=== PATIENT | male | born 1935 | race Caucasian/White ===

== ENCOUNTER 2018-07-05 08:26 | Observation (INO) ==
[2018-07-05] MEDS ORDERED: IPRATROPIUM/ALBUTEROL 3 ML AMPUL.NEB NEB ONE ×2 (08:33→10:17)
--- NOTE | 2018-07-05 08:59 | XRay Report ---
CLINICAL INFORMATION: Chest pain. Known COPD COMPARISON: 05/10/2018 and 04/09/2010 FINDINGS: Implantable cardioverter defibrillator remains in stable, satisfactory position without evidence of wire breakage or other complication. The heart has increased in size and is now moderately enlarged. Mediastinum is normal. Pulmonary vessels are moderately distended and there is moderate interstitial edema with atypical distribution in the mid and lower lungs. Moderate underlying COPD with right basilar scarring seen - as before. Small right pleural effusion noted IMPRESSION: 1. Moderate CHF. Atypical edema distribution to the viable mid and lower lung baltazar due to known upper lobe bullous disease (seen on chest CT 10/14/2017) 2. Moderate underlying COPD - stable Interpreted and Authenticated by: Shoaib Hobson 07/05/18
[2018-07-05 09:19] LABS: Basophils # (Auto) 0 K/mcL (0.0-0.3); Basophils % (Auto) 0.2 % (0.0-2.0); Eosinophils # (Auto) 0.1 K/mcL (0.0-0.7); Eosinophils % (Auto) 0.7 % (0.0-7.0); Granulocytes % (Auto) 80.8 % (38.0-78.0); Lymphocytes # (Auto) 1.3 K/mcL (1.5-4.8); Lymphocytes % (Auto) 10.5 % (15.5-49.0); Mean Cell Volume 84.5 fL (80.0-100.0); Mean Corpuscular HGB Conc 32.7 g/dL (31.0-36.0); Mean Corpuscular Hemoglobin 27.6 pg (26.0-34.0); Monocytes # (Auto) 0.9 K/mcL (0.1-0.9); Monocytes % (Auto) 7.8 % (1.0-12.0); Platelet Count 200 K/mcL (140-440); RBC 4.91 M/mcL (4.50-5.90); Red Cell Distribution Width 16.1 % (11.5-14.5)
[2018-07-05] MEDS ORDERED: FUROSEMIDE 20 MG/2 ML VIAL IV ONE ×2 (09:37→13:18)
--- NOTE | 2018-07-05 09:41 | Emergency Department Note ---
SOB HPI - General Chief Complaint: Shortness of Breath/Dyspnea Stated Complaint: shortness of breath Time Seen by Provider: 07/05/18 09:32 Source: patient Mode of arrival: ambulatory Limitations: no limitations - History of Present Illness This patient has felt short of breath for the last 3 days and has developed some leg edema which is new for him. He says he has taken a water pill in the past but not currently. He does have COPD. Chest x-ray shows moderate heart failure and he did feel little better after a DuoNeb treatment but we will go ahead and start some Lasix. He has had no chest pain. No significant cough. - Related Data Home Medications Medication Instructions Recorded Confirmed atorvastatin 10 mg tablet 10 mg PO QDAY 05/10/18 05/10/18 budesonide 0.5 mg/2 mL suspension 0.5 mg INHALATION QDAY 05/10/18 05/10/18 for nebulization digoxin 125 mcg tablet 125 mcg PO QDAY 05/10/18 05/10/18 formoterol fumarate 20 mcg/2 mL 20 mcg INHALATION Q12H 05/10/18 05/10/18 solution for nebulization furosemide 20 mg tablet 20 mg PO QDAY 05/10/18 05/10/18 hydrocodone 10 mg-acetaminophen 1 tab PO Q6H 05/10/18 05/10/18 325 mg tablet ipratropium-albuterol 0.5 mg-3 3 ml INHALATION Q8H 05/10/18 05/10/18 mg(2.5 mg base)/3 mL nebulization soln metformin 500 mg tablet 500 mg PO BID 05/10/18 05/10/18 metoprolol succinate ER 50 mg 50 mg PO QDAY 05/10/18 05/10/18 tablet,extended release 24 hr verapamil ER 180 mg 24 hr 180 mg PO QDAY 05/10/18 05/10/18 capsule,extended release warfarin 5 mg tablet See Label Instructions PO .COMPLEX 05/10/18 05/10/18 Allergies Allergy/AdvReac Type Severity Reaction Status Date / Time morphine Allergy Intermediate Other Verified 07/05/18 08:33 Review of Systems All systems ED: reviewed and negative except as stated. Past Medical History - Past Medical History Medical history: Reports: atrial fibrillation, CHF, COPD - Social History smoking status: Former smoker Physical Exam Limitations: no limitations General appearance: alert Head: atraumatic Eye: Present: normal appearance ENT: normal exam Neck: Present: normal inspection Chest: Present: normal inspection Respiratory: Present: other (Decreased breath sounds in general but no obvious rales rhonchi or wheezing after a DuoNeb treatment) Cardiovascular: Present: irregular rhythm Abdominal: Present: soft. Absent: distention, tenderness Neurological: Present: alert Psychiatric: Present: normal affect, normal mood Skin: Present: warm, dry, intact Course Vital Signs Temperature 98.4 F 07/05/18 08:27 Pulse Rate 88 07/05/18 08:27 Respiratory Rate 26 H 07/05/18 08:27 Blood Pressure 149/96 07/05/18 08:27 Pulse Oximetry (%) 91 07/05/18 08:27 Temperature 98.4 F 07/05/18 08:27 Pulse Rate 87 07/05/18 10:31 Respiratory Rate 22 07/05/18 10:31 Blood Pressure 174/143 07/05/18 10:31 Pulse Oximetry (%) 90 07/05/18 10:31 Shortness of Breath/Dyspnea - [facility] Narrative Medical decision making narrative: Chest x-ray is read as showing moderate heart failure his BNP was 2300. We gave the patient 20 of Lasix IV and he will be admitted hospital by Dr. Ramos. - Lab Data Lab results reviewed: Yes I reviewed the patient's lab results. Result diagrams: 07/05/18 08:45 07/05/18 08:45 Lab Results 07/05/18 07/05/18 07/05/18 Range/Units 08:45 08:45 08:45 WBC 12.1 H (4.5-11.0) K/mcL RBC 4.91 (4.50-5.90) M/mcL Hgb 13.5 (13.5-16.5) g/dL Hct 41.5 (41.0-55.0) % MCV 84.5 (80.0-100.0) fL MCH 27.6 (26.0-34.0) pg MCHC 32.7 (31.0-36.0) g/dL RDW 16.1 H (11.5-14.5) % Plt Count 200 (140-440) K/mcL MPV 9.7 (7.4-10.4) fL Gran % 80.8 H (38.0-78.0) % Lymph % (Auto) 10.5 L (15.5-49.0) % [place] % (Auto) 7.8 (1.0-12.0) % Eos % (Auto) 0.7 (0.0-7.0) % Baso % (Auto) 0.2 (0.0-2.0) % Gran # 9.7 H (1.8-8.0) K/mcL Lymph # (Auto) 1.3 L (1.5-4.8) K/mcL [place] # (Auto) 0.9 (0.1-0.9) K/mcL Eos # (Auto) 0.1 (0.0-0.7) K/mcL Baso # (Auto) 0 (0.0-0.3) K/mcL PT (11.9-14.5) sec INR (0.9-1.1) D-Dimer (0.00-0.40) ug/ml Sodium 141 (133-145) mmol/L Potassium 4.9 (3.3-5.1) mmol/L Chloride 105 (96-108) mmol/L Carbon Dioxide 28 (22-30) mmol/L Anion Gap 8.0 (8-16) BUN 11 (8-23) mg/dl Creatinine 1.0 (0.7-1.2) mg/dl GFR Calculation 71 Glucose 108 H (70-105) mg/dL Calcium 9.2 (8.6-10.4) mg/dl Total Bilirubin 2.1 H (0.0-1.0) mg/dL AST 14 (0-37) U/l ALT 9 (0-40) U/l Alkaline Phosphatase 67 (39-117) U/L Total Creatine Kinase 36 (24-195) IU/L CK-MB (CK-2) 1.6 (0-4.9) ng/ml Myoglobin 34 (28-72) ng/ml Troponin T < 0.01 (0-0.03) ng/ml NT-Pro-B Natriuret Pep 2339.0 H (0-450) pg/ml Total Protein 6.6 (5.9-8.4) gm/dL Albumin 4.1 (3.2-5.2) gm/dL Globulin 2.5 (2.2-3.7) gm/dL Albumin/Globulin Ratio 1.6 (1.0-2.3) Digoxin ng/mL Digoxin Dose Digox Last Dose Time 07/05/18 07/05/18 07/05/18 Range/Units 08:45 08:45 08:45 WBC (4.5-11.0) K/mcL RBC (4.50-5.90) M/mcL Hgb (13.5-16.5) g/dL Hct (41.0-55.0) % MCV (80.0-100.0) fL MCH (26.0-34.0) pg MCHC (31.0-36.0) g/dL RDW (11.5-14.5) % Plt Count (140-440) K/mcL MPV (7.4-10.4) fL Gran % (38.0-78.0) % Lymph % (Auto) (15.5-49.0) % [place] % (Auto) (1.0-12.0) % Eos % (Auto) (0.0-7.0) % Baso % (Auto) (0.0-2.0) % Gran # (1.8-8.0) K/mcL Lymph # (Auto) (1.5-4.8) K/mcL [place] # (Auto) (0.1-0.9) K/mcL Eos # (Auto) (0.0-0.7) K/mcL Baso # (Auto) (0.0-0.3) K/mcL PT 37.3 H (11.9-14.5) sec INR 3.7 H (0.9-1.1) D-Dimer 0.98 H (0.00-0.40) ug/ml Sodium (133-145) mmol/L Potassium (3.3-5.1) mmol/L Chloride (96-108) mmol/L Carbon Dioxide (22-30) mmol/L Anion Gap (8-16) BUN (8-23) mg/dl Creatinine (0.7-1.2) mg/dl GFR Calculation Glucose (70-105) mg/dL Calcium (8.6-10.4) mg/dl Total Bilirubin (0.0-1.0) mg/dL AST (0-37) U/l ALT (0-40) U/l Alkaline Phosphatase (39-117) U/L Total Creatine Kinase (24-195) IU/L CK-MB (CK-2) (0-4.9) ng/ml Myoglobin (28-72) ng/ml Troponin T (0-0.03) ng/ml NT-Pro-B Natriuret Pep (0-450) pg/ml Total Protein (5.9-8.4) gm/dL Albumin (3.2-5.2) gm/dL Globulin (2.2-3.7) gm/dL Albumin/Globulin Ratio (1.0-2.3) Digoxin < 0.3 ng/mL Digoxin Dose Not Reportable Digox Last Dose Time Not Reportable - Radiology Data Radiology results reviewed: Yes I reviewed the patient's radiology results. Disposition Pt seen by [employer] only: No Clinical Impression: Congestive heart failure Disposition: Xfer As Inpt ([facility]) Condition: Good Referrals: Shey Abebe ARNP [Primary Care Provider] - Time of Disposition: 10:44
[2018-07-05 09:46] LABS: ALT/SGPT 9 U/l (0-40); Albumin 4.1 gm/dL (3.2-5.2); Albumin/Globulin Ratio 1.6 (1.0-2.3); Alkaline Phosphatase 67 U/L (39-117); Blood Urea Nitrogen 11 mg/dl (8-23); Creatine Kinase 36 IU/L (24-195); Creatine Kinase MB 1.6 ng/ml (0-4.9); Myoglobin 34 ng/ml (28-72)
[2018-07-05] MEDS ORDERED: NALOXONE HCL 0.4 MG/ML VIAL IV PRN (12:49)
--- NOTE | 2018-07-05 13:07 | Internal Med History&Physical ---
Medical - H&P: HPI Patient information: Note initiated : 07/05/18 at 1:04 pm Service Date, if different from initiated Date: [] Patient: Zachery Ordoñez a 82 y/o M admitted on 07/05/18 for shortness of breath. Chief Complaint: [] History of present illness: Mr. Ordoñez is a 82 year old Male with h/o chf, afib, copd on 2 L oxygen presents to the ER today with complaints of shortness of breath x 3 days, the patient notes that 3 days ago he noticed that his lower extremities started to swell up, right > left, which is a chr issue for him, the patient has had incrased fatigue and increased shortness of breath since then. SOB is worse with exertion, worse with lying flat, better with rest and sleeping upright, The patient had no chest pain, no dizziness, has chr cough, but no change in sputum production. He notes that he has been eating a lot of cucumbers, with salt. The pt was admitted at [facility] in march this year for copd, pna, echo done at that time showed normal lvef He has h/o afib, s/o AICD and pace maker, on chr anticoagulation In the ER the patient had a temp of 98.4, heart rate 84, blood pressure 149/96, breathing 24-30, saturating 94% on 2 L of oxygen. The patient has elevated white blood cell count at 12.1, hemoglobin 13.5, platelet 200. INR is 3.7. Electrolytes show sodium of 141, potassium 4.9 bicarbonate 28 creatinine 1 glucose 108, digoxin level is 0.3, total bilirubin elevated 2.1 however AST ALT and alkaline phosphatase is normal, troponin is negative, BNP elevated at 2339. EKG shows atrial fibrillation with voltage in the limb leads, right bundle branch block, T-wave inversions in the anterior leads and lead I and aVL, Chest x-ray shows moderate CHF Patient is being admitted as observation to telemetry status. All systems: reviewed and no additional remarkable complaints except as stated ( as per HPI rest negative.) Medical - H&P: PMH Medical history: DM HTN HLD COPD on 2 L oxygen GERD AFib Obesity s/p aicd/ pacemaker Surgical history: shoulder sx rajesh carotid enarterectomy back surgery cholecystectomy Family history: reviewed and not pertinent Social history: former smoker denies etoh or recreational drug use. Medical - H&P: Meds Home Medications Medication Instructions Recorded Confirmed Type atorvastatin 10 mg tablet 10 mg PO HS 05/10/18 07/05/18 History budesonide 0.5 mg/2 mL suspension 0.5 mg INHALATION BID 05/10/18 07/05/18 History for nebulization digoxin 125 mcg tablet 62.5 mcg PO QDAY 05/10/18 07/05/18 History formoterol fumarate 20 mcg/2 mL 20 mcg INHALATION Q12H 05/10/18 07/05/18 History solution for nebulization furosemide 20 mg tablet 20 mg PO QDAY 05/10/18 07/05/18 History hydrocodone 10 mg-acetaminophen 1 tab PO BIDP PRN 05/10/18 07/05/18 History 325 mg tablet ipratropium-albuterol 0.5 mg-3 3 ml INHALATION QIDP PRN 05/10/18 07/05/18 History mg(2.5 mg base)/3 mL nebulization soln metformin 500 mg tablet 500 mg PO BID 05/10/18 07/05/18 History metoprolol succinate ER 50 mg 50 mg PO BID 05/10/18 07/05/18 History tablet,extended release 24 hr verapamil ER 180 mg 24 hr 240 mg PO QDAY 05/10/18 07/05/18 History capsule,extended release warfarin 5 mg tablet See Label Instructions PO .COMPLEX 05/10/18 07/05/18 History Aspirin [Adult Low Dose Aspirin EC] 81 mg PO DAILY 07/05/18 07/05/18 History Ferrous Sulfate [Iron] 325 mg PO DAILY 07/05/18 07/05/18 History Fluticasone Hfa 220Mcg [Flovent 1 puff INH BID 07/05/18 07/05/18 History Hfa 220Mcg] Vardenafil HCl [Levitra] 10 mg PO PRN PRN 07/05/18 07/05/18 History Allergies Allergy/AdvReac Type Severity Reaction Status Date / Time morphine Allergy Intermediate Other Verified 07/05/18 08:33 Medical - H&P: Exam - Constitutional Vitals: Temp Pulse Resp BP Pulse Ox 99 F 81 22 135/91 94 07/05/18 12:50 07/05/18 12:27 07/05/18 12:50 07/05/18 12:50 07/05/18 12:50 Exam: GENERAL: The patient is a well-developed, well-nourished in no apparent distress. Is alert and oriented x3. VITAL SIGNS: Reviewed and as noted elsewhere. HEENT: Head is normocephalic and atraumatic. Extraocular muscles are intact. Pupils are equal, round, and reactive to light. Nares appeared normal. Mouth appears any without lesions. Mucous membranes are moist. NECK: Normal to inspection, Supple, No lymphadenopathy or thyromegaly. LUNGS: Air entry equal on both sides, basilcar inspiratory crackles, no wheezing , or rhonchi noted. No accessory muscles of respiration, pt able to speak full sentences HEART: Regular rate and rhythm normal, S1 and S2 heard, no Gallop, S3 or Rub Noted, No Gross murmur heard. ABDOMEN: Soft, nontender, and nondistended. Positive bowel sounds. No hepatosplenomegaly was noted. EXTREMITIES: No cyanosis, clubbing, rash, lesions, rajesh arms has brusing, rajesh edema Right +++, left +. NEUROLOGIC: Cranial nerves II through XII are grossly intact. Motor and Sensory System Grossly Intact PSYCHIATRIC: Normal affect, Normal Mood. Appropriate Behavior. SKIN: No ulceration or wounds noted, No jaundice, No rash noted. Medical - H&P: Reslt - Labs CBC & Chem 7: 07/05/18 08:45 07/05/18 08:45 Labs: Short CBC 07/05/18 Range/Units 08:45 WBC 12.1 H (4.5-11.0) K/mcL Hgb 13.5 (13.5-16.5) g/dL Hct 41.5 (41.0-55.0) % Plt Count 200 (140-440) K/mcL BMP 07/05/18 08:45 Sodium 141 Potassium 4.9 Chloride 105 Carbon Dioxide 28 BUN 11 Creatinine 1.0 Glucose 108 H Calcium 9.2 Cardiac Enzymes 07/05/18 07/05/18 Range/Units 08:45 08:45 Total Creatine Kinase 36 (24-195) IU/L CK-MB (CK-2) 1.6 (0-4.9) ng/ml Troponin T < 0.01 (0-0.03) ng/ml Liver Function 07/05/18 Range/Units 08:45 Total Bilirubin 2.1 H (0.0-1.0) mg/dL AST 14 (0-37) U/l ALT 9 (0-40) U/l Alkaline Phosphatase 67 (39-117) U/L Albumin 4.1 (3.2-5.2) gm/dL - Impressions Echo 04/13/18 Conclusion: 1) Normal left ventricular chamber sizes and systolic function, with concentric left ventricular hypertrophy and mild to moderate asymmetric basal septal hypertrophy that is not obstructive at rest. 2) Right ventricle is mildly dilated, and systolic function is low normal, with echo densities in right heart chambers consistent with history of pacemaker lead. 3) There is left atrial enlargement, mild to moderate and valvular structures appear to be unremarkable for age. 4) Pulse wave and Doppler color flow analysis indicates the presence of trivial mitral and tricuspid valve insufficiency. Right ventricular systolic pressure is 33mmHg. 5) No obvious pericardial effusion. 6) Normal ascending aortic root dimension. Medical - H&P: A/P - Narrative A/P Narrative: A/P Acute, congestive Heart failure- due to non compliance with dietary restrictions. IV lasix for now, fluid restriction, cardiac diet. Monitor i/o, monitor on tele, no increased oxygen needs. Chronic resp failure- on 2 L oxygen, doing well on same, continue. COPD- on 2 L oxygen , no wheezing noted, continue nebulizer and budesonide. HTN- BP stable, resume home medications, ccb and beta steven Afib - on 3 meds for rate control, rate is controlled althought dig level is sub therapeutic, on metoprolol and verapramil, has room to uptitrate dig dose if needed. I will just continue same dose for now. He is on coumadin with INR of 3.7, pharmacy to dose coumading while inpatient. DM on metfomrin 500mg bid, hold same for now, ssi insulin for glucose control. HLD continue statin DVT on coumadin FUll code. Diet Cardiac, fluid restriction to 1500ml
[2018-07-05] MEDS ORDERED: DEXTROSE 50% 50 ML VIAL IV PRN (13:26)
[2018-07-05] MEDS ORDERED: DEXTROSE 31 GM ORAL.SUSP PO PRN (13:26)
[2018-07-05] MEDS: IPRATROPIUM/ALBUTEROL 3 ML AMPUL.NEB NEB SCH ×3 (13:54→19:47)
[2018-07-05] MEDS: 0.9 % SODIUM CHLORIDE 10 ML SYRINGE IV SCH ×2 (15:21→20:34)
[2018-07-05 16:44] LABS: Appearance,Urine CLEAR; Bacteria,Urine 0 /hpf (0); Bilirubin,Urine NEG (NEG); Color,Urine COLORLESS; Glucose,Urine (UA) NEGATIVE (NEG); Leukocyte Esterase,Urine NEG /uL (NEG); Mucus,Urine FEW /hpf (0); Protein,Urine NEG (NEG); Specific Gravity,Urine 1.005 (1.000-1.035); Urine Blood 0.03 mg/dL (<0.03); Urine RBC 1 /hpf (0-1); Urine Squamous Epithelial Cell 0 /hpf (0-4); Urine WBC 0 /hpf (0-4); Urobilinogen,Urine NEG (NEG)
--- NOTE | 2018-07-05 17:10 | Internal Med Progress Note ---
Medical - PN: Subj Patient information: Note initiated : 07/05/18 at 4:51 pm Service Date, if different from initiated Date: [] Patient: Zachery Ordoñez 82 y/o M admitted on 07/05/18 for shortness of breath. Chief Complaint: [CHF] - Constitutional Vitals: Vital Signs Temp Pulse Resp BP Pulse Ox 99.7 F H 88 18 108/64 93 07/05/18 15:34 07/05/18 15:08 07/05/18 15:34 07/05/18 15:34 07/05/18 15:34 Period Temp Pulse Resp BP Sys/Montano Pulse Ox Last 24 Hr 98.4 F-99.7 F 70-94 16-30 108-174/64-143 90-96 Intake and Output 07/05/18 07/05/18 07/05/18 05:59 13:59 21:59 Output Total 1780 / 1780 275 / 275 Balance -1780 / -1780 -275 / -275 Weight 207 lb Patient Weight 07/06/18 05:59 Weight 207 lb Intake & Output: Intake & Output 07/05/18 07/05/18 07/05/18 05:59 13:59 21:59 Output Total 1780 / 1780 275 / 275 Balance -1780 / -1780 -275 / -275 Weight 207 lb Output: Urine Catheter Amount 275 / 275 Void Amount 1780 / 1780 # of times incontinent of urine 0 / 0 Other: Urine Appearance Clear Clear Urine Color Bright Yellow Bright Yellow Urine Odor Normal Normal # Voids 1 Medical - PN: Obj Da - Labs CBC & Chem 7: 07/05/18 08:45 07/05/18 08:45 Labs: Abnormal Lab Results 07/05/18 07/05/18 07/05/18 16:07 08:45 08:45 WBC RDW Gran % Lymph % (Auto) Gran # Lymph # (Auto) PT 37.3 H INR 3.7 H D-Dimer 0.98 H Glucose Total Bilirubin NT-Pro-B Natriuret Pep Urine Occult Blood 0.03 A 07/05/18 07/05/18 08:45 08:45 WBC 12.1 H RDW 16.1 H Gran % 80.8 H Lymph % (Auto) 10.5 L Gran # 9.7 H Lymph # (Auto) 1.3 L PT INR D-Dimer Glucose 108 H Total Bilirubin 2.1 H NT-Pro-B Natriuret Pep 2339.0 H Urine Occult Blood Meds: Medications Hydrocodone Bitart/Acetaminophen ([place] 10/325mg) 1 tab PO BIDP PRN PRN Reason: Pain Albuterol/Ipratropium (Duoneb) 3 ml NEB Q6HRT [facility] Last Admin: 07/05/18 15:08 Dose: 3 ml Aspirin (Aspirin) 81 mg PO DAILY [facility] Atorvastatin Calcium (Lipitor) 10 mg PO HS [facility] Budesonide (Pulmicort) 0.5 mg NEB Q12 [facility] Dextrose (Dextrose 50%) 0 ml IV UD PRN PRN Reason: Hypoglycemia Diagnostic Test (Pha) (Accu-Chek) 1 each FS ACHS [facility] Digoxin (Lanoxin) 62.5 mcg PO DAILY@1400 [facility] Ferrous Sulfate (Ferrous Sulfate) 325 mg PO DAILY [facility] Fluticasone Propionate (Flovent Hfa 220mcg) 1 puff INH BID [facility] Furosemide (Lasix) 40 mg IV DAILY [facility] Glucose (Insta-Glucose) 15 gm PO PRN PRN PRN Reason: Hypoglycemia Insulin Human Lispro (Humalog) 0 unit SQ [facility]; Protocol Metoprolol Succinate (Toprol Xl) 50 mg PO BID [facility] Naloxone HCl (Narcan) 0.1 mg IV Q2MIN PRN PRN Reason: Opiate Reversal Formoterol Fumarate ([Perforomist] 20 Mcg) 1 dose INH Q12H [facility] Sodium Chloride (Saline Flush) 10 ml IV Q8 [facility] Last Admin: 07/05/18 15:21 Dose: 10 ml Verapamil HCl (Calan Sr) 240 mg PO DAILY [facility] Warfarin Sodium (Coumadin Per Pharmacy) 1 order PO UD [facility] Medical - PN: A/P - Time Spent With Patient Total time spent is greater than 50% in coordination of care (as documented) at patient's floor/unit and/or counseling patient: - Narrative A/P Narrative: A: *Acute CHF: due to non compliance with dietary restrictions *Chronic resp failure: -on home 2L *COPD (2L@home): *DM: *HTN: *Afib, persistent: home dig/bb/ccb, warfarin *Obesity: *h/o CMP with ACID/PPM: last echo with normal EF * P: - IV lasix for now, fluid restriction, cardiac diet. Monitor i/o, monitor on tele, no increased oxygen needs -cont home ccb/bb -cont home IH's - -SSI, hold home metformin for now - -ppx: warfarin per pharm Medical - PN: Qual - Stroke Symptom Onset Unknown: No - VTE Deep Vein Thrombosis/Pulmonary Embolism Present on Admission: No
[2018-07-05] MEDS: INSULIN LISPRO 1 UNIT/0.01 ML UNIT SQ SCH ×2 (17:25→20:34)
[2018-07-05] MEDS: DIGOXIN 125 MCG TABLET PO SCH (18:16)
[2018-07-05] MEDS: HYDROcodone/APAP 10/325MG TABLET PO PRN (19:35)
[2018-07-05] MEDS: BUDESONIDE 0.5 MG/2 ML AMPUL.NEB NEB SCH (19:47)
[2018-07-05] MEDS: ATORVASTATIN 20 MG TABLET PO SCH (20:14)
[2018-07-05] MEDS: METOPROLOL SUCCINATE 50 MG TAB.XL.24H PO SCH (20:15)
[2018-07-05] MEDS: FLUTICASONE HFA 220MCG INHALER INH SCH (20:15)
[2018-07-05] MEDS: Formoterol Fumarate [Perforomist] 20 MCG INH SCH (20:15)
[2018-07-06] MEDS: IPRATROPIUM/ALBUTEROL 3 ML AMPUL.NEB NEB SCH ×4 (01:09→19:46)
[2018-07-06 05:23] LABS: Basophils # (Auto) 0 K/mcL (0.0-0.3); Basophils % (Auto) 0.3 % (0.0-2.0); Eosinophils # (Auto) 0.1 K/mcL (0.0-0.7); Eosinophils % (Auto) 0.8 % (0.0-7.0); Granulocytes % (Auto) 73.5 % (38.0-78.0); Lymphocytes # (Auto) 1.2 K/mcL (1.5-4.8); Lymphocytes % (Auto) 14.4 % (15.5-49.0); Mean Cell Volume 84.3 fL (80.0-100.0); Mean Corpuscular HGB Conc 32.7 g/dL (31.0-36.0); Mean Corpuscular Hemoglobin 27.6 pg (26.0-34.0); Monocytes # (Auto) 0.9 K/mcL (0.1-0.9); Platelet Count 170 K/mcL (140-440); RBC 4.87 M/mcL (4.50-5.90)
[2018-07-06 05:28] LABS: ALT/SGPT 8 U/l (0-40); Albumin 3.8 gm/dL (3.2-5.2); Albumin/Globulin Ratio 1.5 (1.0-2.3); Alkaline Phosphatase 66 U/L (39-117); Bilirubin,Direct 0.3 mg/dL (0.0-0.3); Blood Urea Nitrogen 13 mg/dl (8-23); Gamma Glutamyl Transpeptidase 14 U/L (8-61); Uric Acid 6.2 mg/dL (2.5-8.0)
[2018-07-06] MEDS: 0.9 % SODIUM CHLORIDE 10 ML SYRINGE IV SCH ×4 (05:47→21:45)
[2018-07-06] MEDS: BUDESONIDE 0.5 MG/2 ML AMPUL.NEB NEB SCH ×2 (07:26→20:09)
--- NOTE | 2018-07-06 07:59 | Internal Med Progress Note ---
Medical - PN: Subj Patient information: Note initiated : 07/06/18 at 7:53 am Service Date, if different from initiated Date: [] Patient: Zachery Ordoñez a 82 y/o M admitted on 07/05/18 for shortness of breath. Chief Complaint: [] Interval history: Mr. Ordoñez is a 82 year old Male with h/o chf, afib, copd on 2 L oxygen presents to the ER today with complaints of shortness of breath x 3 days, the patient notes that 3 days ago he noticed that his lower extremities started to swell up, right > left, which is a chr issue for him, the patient has had incrased fatigue and increased shortness of breath since then. SOB is worse with exertion, worse with lying flat, better with rest and sleeping upright, The patient had no chest pain, no dizziness, has chr cough, but no change in sputum production. He notes that he has been eating a lot of cucumbers, with salt. The pt was admitted at [facility] [place] in march this year for copd, pna, echo done at that time showed normal lvef He has h/o afib, s/o AICD and pace maker, on chr anticoagulation In the ER the patient had a temp of 98.4, heart rate 84, blood pressure 149/96, breathing 24-30, saturating 94% on 2 L of oxygen. The patient has elevated white blood cell count at 12.1, hemoglobin 13.5, platelet 200. INR is 3.7. Electrolytes show sodium of 141, potassium 4.9 bicarbonate 28 creatinine 1 glucose 108, digoxin level is 0.3, total bilirubin elevated 2.1 however AST ALT and alkaline phosphatase is normal, troponin is negative, BNP elevated at 2339. EKG shows atrial fibrillation with voltage in the limb leads, right bundle branch block, T-wave inversions in the anterior leads and lead I and aVL, Chest x-ray shows moderate CHF Patient is being admitted as observation to telemetry status. 07/06 feeling better, dyspnea near baseline, swelling improved, minimal cough Review of Systems: denies headache/fever/chills/nausea/vomiting/chest or abdominal pain/diarrhea. Otherwise see above. - Constitutional Vitals: Vital Signs Temp Pulse Resp BP Pulse Ox 97.7 F 94 H 18 126/74 92 07/06/18 03:48 07/06/18 07:24 07/06/18 07:24 07/06/18 03:48 07/06/18 03:48 Period Temp Pulse Resp BP Sys/Montano Pulse Ox Last 24 Hr 97.7 F-99.7 F 70-95 16-30 108-174/64-143 90-99 Intake and Output 07/05/18 07/06/18 07/06/18 21:59 05:59 13:59 Intake Total 900 / 900 Output Total 1700 / 1700 500 / 500 Balance -800 / -800 -500 / -500 Weight 205 lb 11.2 oz Intake & Output: Intake & Output 07/05/18 07/06/18 07/06/18 21:59 05:59 13:59 Intake Total 900 / 900 Output Total 1700 / 1700 500 / 500 Balance -800 / -800 -500 / -500 Weight 205 lb 11.2 oz Intake: Oral 900 / 900 Output: Urine Catheter Amount 275 / 275 Void Amount 1425 / 1425 500 / 500 # of times incontinent of urine 0 / 0 Other: Meal Dinner Nourishment/Supplement Percent of Meal Consumed 100% 100% Feeding Ability Independent Independent Urine Appearance Clear Urine Color Pale Urine Odor Normal # Voids 1 300 Exam: General: Alert, Awake, No acute Distress HEENT: EOMI CV: irreg irreg, No murmurs Pulm: mild bibase rales R>L, no wheezing Abd: soft, nontender, +BS x4 Ext: no clubbing/cyanosis, trace b/l LE edema Neuro: Alert, no focal deficits, moves all extremities Skin: warm/dry Medical - PN: Obj Da - Labs CBC & Chem 7: 07/06/18 04:00 07/06/18 04:00 Labs: Abnormal Lab Results 07/06/18 07/06/18 07/06/18 04:00 04:00 04:00 WBC Hgb 13.4 L RDW 16.0 H Gran % Lymph % (Auto) 14.4 L Gran # Lymph # (Auto) 1.2 L PT 29.3 H INR 2.7 H D-Dimer Carbon Dioxide 32 H Glucose 109 H Phosphorus 2.6 L Total Bilirubin 2.0 H NT-Pro-B Natriuret Pep Urine Occult Blood 08/13/18 08/13/18 08/13/18 16:07 08:45 08:45 WBC Hgb RDW Gran % Lymph % (Auto) Gran # Lymph # (Auto) PT 37.3 H INR 3.7 H D-Dimer 0.98 H Carbon Dioxide Glucose Phosphorus Total Bilirubin NT-Pro-B Natriuret Pep Urine Occult Blood 0.03 A 07/05/18 07/05/18 08:45 08:45 WBC 12.1 H Hgb RDW 16.1 H Gran % 80.8 H Lymph % (Auto) 10.5 L Gran # 9.7 H Lymph # (Auto) 1.3 L PT INR D-Dimer Carbon Dioxide Glucose 108 H Phosphorus Total Bilirubin 2.1 H NT-Pro-B Natriuret Pep 2339.0 H Urine Occult Blood Meds: Medications Hydrocodone Bitart/Acetaminophen (Higden 10/325mg) 1 tab PO BIDP PRN PRN Reason: Pain Last Admin: 07/05/18 19:35 Dose: 1 tab Albuterol/Ipratropium (Duoneb) 3 ml NEB Q6HRT [facility] Last Admin: 07/06/18 07:26 Dose: 3 ml Aspirin (Aspirin) 81 mg PO DAILY [facility] Atorvastatin Calcium (Lipitor) 10 mg PO HS [facility] Last Admin: 07/05/18 20:14 Dose: 10 mg Budesonide (Pulmicort) 0.5 mg NEB Q12 [facility] Last Admin: 07/06/18 07:26 Dose: 0.5 mg Dextrose (Dextrose 50%) 0 ml IV UD PRN PRN Reason: Hypoglycemia Diagnostic Test (Pha) (Accu-Chek) 1 each FS ACHS [facility] Last Admin: 07/05/18 20:34 Dose: 1 each Digoxin (Lanoxin) 62.5 mcg PO DAILY@1400 [facility] Last Admin: 07/05/18 18:16 Dose: 62.5 mcg Ferrous Sulfate (Ferrous Sulfate) 325 mg PO DAILY [facility] Fluticasone Propionate (Flovent Hfa 220mcg) 1 puff INH BID [facility] Last Admin: 07/05/18 20:15 Dose: Not Given Furosemide (Lasix) 40 mg IV DAILY [facility] Glucose (Insta-Glucose) 15 gm PO PRN PRN PRN Reason: Hypoglycemia Insulin Human Lispro (Humalog) 0 unit SQ ACHS [facility]; Protocol Last Admin: 07/05/18 20:34 Dose: Not Given Metoprolol Succinate (Toprol Xl) 50 mg PO BID [facility] Last Admin: 07/05/18 20:15 Dose: 50 mg Naloxone HCl (Narcan) 0.1 mg IV Q2MIN PRN PRN Reason: Opiate Reversal Formoterol Fumarate ([Perforomist] 20 Mcg) 1 dose INH Q12H [facility] Last Admin: 07/05/18 20:15 Dose: Not Given Sodium Chloride (Saline Flush) 10 ml IV Q8 [facility] Last Admin: 07/06/18 05:47 Dose: 10 ml Verapamil HCl (Calan Sr) 240 mg PO DAILY [facility] Warfarin Sodium (Coumadin Per Pharmacy) 1 order PO UD [facility] Medical - PN: A/P - Time Spent With Patient Total time spent is greater than 50% in coordination of care (as documented) at patient's floor/unit and/or counseling patient: - Narrative A/P Narrative: A: *Acute diastolic CHF: due to non compliance with dietary restrictions -good diuresis -echo in march good LV fxn, RV systolic low normal *Chronic resp failure: -on home 2L *COPD (2L@home): *DM: *HTN: *Afib, persistent: home dig/bb/ccb, warfarin *Obesity: *h/o CMP with ACID/PPM: last echo with normal EF P: - IV lasix for now, fluid restriction, cardiac diet. Monitor i/o, monitor on tele, no increased oxygen needs -cont home ccb/bb -cont home IH's - -SSI, hold home metformin for now - -ppx: warfarin per pharm d/c planning Medical - PN: Qual - Stroke Symptom Onset Unknown: No - VTE Deep Vein Thrombosis/Pulmonary Embolism Present on Admission: No
[2018-07-06] MEDS: FUROSEMIDE 40 MG/4 ML VIAL IV SCH (08:48)
[2018-07-06] MEDS: FERROUS SULFATE 325 MG TABLET PO SCH (08:49)
[2018-07-06] MEDS: VERAPAMIL 120 MG TAB.XL.24H PO SCH (08:49)
[2018-07-06] MEDS: METOPROLOL SUCCINATE 50 MG TAB.XL.24H PO SCH ×2 (08:49→19:37)
[2018-07-06] MEDS: ASPIRIN 81 MG TAB.CHEW PO SCH (08:49)
[2018-07-06] MEDS: FLUTICASONE HFA 220MCG INHALER INH SCH ×2 (08:59→20:10)
[2018-07-06] MEDS: Formoterol Fumarate [Perforomist] 20 MCG INH SCH ×2 (09:00→20:09)
[2018-07-06] MEDS: INSULIN LISPRO 1 UNIT/0.01 ML UNIT SQ SCH ×4 (09:37→20:11)
[2018-07-06] MEDS ORDERED: DIGOXIN 125 MCG TABLET PO SCH (14:00)
[2018-07-06] MEDS ORDERED: WARFARIN 5 MG TABLET PO ONE (16:00)
[2018-07-06] MEDS: DIGOXIN 125 MCG TABLET PO SCH (16:25)
[2018-07-06] MEDS ORDERED: diphenhydrAMINE 25 MG CAPSULE PO PRN (18:16)
[2018-07-06] MEDS ORDERED: NON FORMULARY MEDICATION 1 DOSE MISCELL PO PRN (18:46)
[2018-07-06] MEDS: ATORVASTATIN 20 MG TABLET PO SCH (19:36)
[2018-07-06] MEDS: HYDROcodone/APAP 10/325MG TABLET PO PRN (19:36)
[2018-07-06] MEDS ORDERED: diphenhydrAMINE 25 MG CAPSULE ONE (19:40)
[2018-07-07] MEDS: IPRATROPIUM/ALBUTEROL 3 ML AMPUL.NEB NEB SCH ×2 (00:56→07:06)
[2018-07-07] MEDS: 0.9 % SODIUM CHLORIDE 10 ML SYRINGE IV SCH (05:30)
[2018-07-07 06:21] LABS: Basophils # (Auto) 0 K/mcL (0.0-0.3); Basophils % (Auto) 0.3 % (0.0-2.0); Eosinophils # (Auto) 0.1 K/mcL (0.0-0.7); Granulocytes % (Auto) 78.3 % (38.0-78.0); Lymphocytes # (Auto) 1.3 K/mcL (1.5-4.8); Lymphocytes % (Auto) 12.7 % (15.5-49.0); Mean Cell Volume 83.9 fL (80.0-100.0); Mean Corpuscular HGB Conc 32.4 g/dL (31.0-36.0); Mean Corpuscular Hemoglobin 27.2 pg (26.0-34.0); Monocytes # (Auto) 0.8 K/mcL (0.1-0.9); Monocytes % (Auto) 7.7 % (1.0-12.0); Platelet Count 164 K/mcL (140-440); RBC 4.78 M/mcL (4.50-5.90); Red Cell Distribution Width 15.8 % (11.5-14.5)
[2018-07-07 06:52] LABS: ALT/SGPT 6 U/l (0-40); Albumin 3.5 gm/dL (3.2-5.2); Albumin/Globulin Ratio 1.5 (1.0-2.3); Alkaline Phosphatase 57 U/L (39-117); Bilirubin,Direct 0.3 mg/dL (0.0-0.3); Blood Urea Nitrogen 21 mg/dl (8-23); Gamma Glutamyl Transpeptidase 13 U/L (8-61); Uric Acid 6.5 mg/dL (2.5-8.0)
[2018-07-07] MEDS: BUDESONIDE 0.5 MG/2 ML AMPUL.NEB NEB SCH (07:06)
[2018-07-07] MEDS: INSULIN LISPRO 1 UNIT/0.01 ML UNIT SQ SCH (08:24)
[2018-07-07] MEDS: VERAPAMIL 120 MG TAB.XL.24H PO SCH (08:26)
[2018-07-07] MEDS: METOPROLOL SUCCINATE 50 MG TAB.XL.24H PO SCH (08:26)
[2018-07-07] MEDS: ASPIRIN 81 MG TAB.CHEW PO SCH (08:27)
[2018-07-07] MEDS: FERROUS SULFATE 325 MG TABLET PO SCH (08:27)
[2018-07-07] MEDS: FUROSEMIDE 40 MG/4 ML VIAL IV SCH (08:27)
[2018-07-07] MEDS: FLUTICASONE HFA 220MCG INHALER INH SCH (08:27)
[2018-07-07] MEDS: Formoterol Fumarate [Perforomist] 20 MCG INH SCH (08:27)
--- NOTE | 2018-07-07 09:17 | Discharge Summary ---
DATE OF ADMISSION: 07/05/2018 DATE OF DISCHARGE: ADMISSION DATE: 07/05/2018 DISCHARGE DATE: 07/07/2018 FINAL DISCHARGE DIAGNOSES: 1. Acute on chronic diastolic heart failure. 2. Chronic respiratory failure. 3. Chronic obstructive pulmonary disease. 4. Diabetes. 5. Hypertension. 6. Atrial fibrillation. 7. Obesity. 8. History of cardiomyopathy. HISTORY OF PRESENT ILLNESS: This is an 82-year-old male who presented to ER with shortness of breath for 3 days, had also noticed increased swelling in his lower legs, right greater than left. He had increased fatigue, shortness of breath, increased shortness of breath with exertion, also describing orthopnea. No chest pain. He has a chronic cough. No change in sputum production. He has been eating a lot of salt, he admits. In the ER he was tachypneic at 24 to 30s, maintaining oxygen on his home 2 liters. ProBNP was 2300. EKG with AFib and chest x-ray with pulmonary edema. HOSPITAL COURSE: The patient admitted to telemetry and placed on IV diuretics. He diuresed quite well over the next couple days. Echo this year noted good LV function. RV systolic function was below normal. He improved quickly. Continue him on his home medications. Instructed about dietary discretion. The patient is now doing well and stable for discharge. DISPOSITION: The patient is discharged home. DISCHARGE CONDITION: Stable. DIET: Low sodium. DISCHARGE ACTIVITY: As tolerated. DISCHARGE MEDICATIONS: See EMR. DISCHARGE INSTRUCTIONS: The patient will follow up with primary care provider in 3 to 7 days, SREEKANTH Martin. Further instructions to monitor weight closely. Call PCP if greater than 2 pound weight gain. Greater than 35 minutes spent on discharge. ANTONIA:osmel Job ID: [id number] Doc ID: [id number] Benjamin Mosqueda DO
== END 2018-07-07 10:08 | disposition home or self-care (01) ==
LOC: ED 08:26 → ICU 08:26
PROVIDERS: ADMIT Internal Medicine; ATTEND Internal Medicine

== ENCOUNTER 2019-02-08 11:05 | Inpatient (IN) ==
--- NOTE | 2019-02-08 11:28 | Emergency Department Note ---
SOB HPI - General Chief Complaint: Shortness of Breath/Dyspnea Stated Complaint: Shortness of Breath Time Seen by Provider: 02/08/19 11:21 Source: patient Mode of arrival: wheelchair Limitations: no limitations - History of Present Illness 83-year-old male presents with worsening shortness of breath. He was seen here by myself last night diagnosed with pneumonia and CHF. However the patient refused to stay despite hypoxia and continued shortness of breath. Yesterday he was brought in via ambulance from the [facility] after his oxygen tank ran out while he was gambling and he waited too long to go home and get another tank as he did not want to stop gambling. He was insistent that his shortness of breath was caused solely from running out of oxygen and that it was his own fault and that he had plenty of oxygen at home. He tells me now that he was too short of breath to even go back to the [facility] last night and that he was on 4 L of oxygen at home but he still could not catch his breath so he decided to come back here this morning. He never did go picker/puller any of his medications. He had a friend dropped him off here this morning. No fever or chills. No nausea, vomiting, or diarrhea. He insists that he will be cooperative and stay now at this time. - Related Data Home Medications Medication Instructions Recorded Confirmed atorvastatin 10 mg tablet 10 mg PO HS 05/10/18 07/13/18 budesonide 0.5 mg/2 mL suspension 0.5 mg INHALATION BID 05/10/18 07/13/18 for nebulization digoxin 125 mcg tablet 62.5 mcg PO QDAY 05/10/18 07/13/18 formoterol fumarate 20 mcg/2 mL 20 mcg INHALATION Q12H 05/10/18 07/13/18 solution for nebulization furosemide 20 mg tablet 20 mg PO QDAY 05/10/18 07/13/18 hydrocodone 10 mg-acetaminophen 1 tab PO BIDP PRN 05/10/18 07/13/18 325 mg tablet ipratropium-albuterol 0.5 mg-3 3 ml INHALATION QIDP PRN 05/10/18 07/13/18 mg(2.5 mg base)/3 mL nebulization soln metformin 500 mg tablet 500 mg PO BID 05/10/18 07/13/18 metoprolol succinate ER 50 mg 50 mg PO BID 05/10/18 07/13/18 tablet,extended release 24 hr verapamil ER 180 mg 24 hr 240 mg PO QDAY 05/10/18 07/13/18 capsule,extended release warfarin 5 mg tablet See Rx Instructions PO .COMPLEX 05/10/18 07/13/18 Aspirin [Adult Low Dose Aspirin EC] 81 mg PO DAILY 07/05/18 07/13/18 Ferrous Sulfate [Iron] 325 mg PO DAILY 07/05/18 07/13/18 Fluticasone Hfa 220Mcg [Flovent 1 puff INH BID 07/05/18 07/13/18 Hfa 220Mcg] Vardenafil HCl [Levitra] 10 mg PO PRN PRN 07/05/18 07/13/18 Previous Rx's Medication Instructions Recorded ciprofloxacin 500 mg tablet 500 mg PO Q12H #20 tab 07/13/18 Furosemide [Lasix] 40 mg PO DAILY #30 tab 02/07/19 Levofloxacin [Levaquin] 500 mg PO DAILY #10 tab 02/07/19 Allergies Allergy/AdvReac Type Severity Reaction Status Date / Time morphine Allergy Intermediate Other Verified 07/13/18 08:46 Review of Systems All systems ED: reviewed and negative except as stated. Past Medical History - Past Medical History Medical history: Reports: atrial fibrillation, CHF, COPD Surgical history ED: Reports: non-contributory - Social History smoking status: Former smoker Alcohol use: Reports: Unknown Drug use: Reports: none Physical Exam Limitations: no limitations General appearance: alert, other (Some mild shortness of breath on arrival. Speaks 3-4 words at a time.) Head: atraumatic, normocephalic, normal inspection Eye: Present: normal appearance. Absent: conjunctival injection ENT: normal exam, normal oropharynx, mucous membranes moist, TM's normal bilaterally, normal external ear exam Neck: Present: normal inspection, trachea midline. Absent: tenderness, lymphadenopathy Chest: Present: symmetric chest wall rise Respiratory: Present: accessory muscle use (Some mild accessory muscle use on arrival. Mild tachypnea. Oxygen saturations 86 to 87% on arrival) Cardiovascular: Present: regular rate, normal heart sounds Extremities: Present: normal inspection, pedal edema Neurological: Present: alert, oriented X3 Psychiatric: Present: normal affect, normal mood Skin: Present: warm, dry, intact Course Course Narrative: At [address] Ramos, the hospitalist who agrees to accept this patient. We are still pending labs as of right now, repeat labs. Vital Signs Temperature 98.4 F 02/08/19 11:05 Pulse Rate 80 02/08/19 11:05 Respiratory Rate 22 02/08/19 11:05 Blood Pressure 109/64 02/08/19 11:05 Pulse Oximetry (%) 87 L 02/08/19 11:05 Temperature 98.4 F 02/08/19 11:05 Pulse Rate 80 02/08/19 11:05 Respiratory Rate 15 02/08/19 11:31 Blood Pressure 107/91 02/08/19 11:31 Pulse Oximetry (%) 87 L 02/08/19 11:05 Shortness of Breath/Dyspnea - Medical Records Medical records reviewed: Yes I reviewed the patient's medical records. - Lab Data Lab results reviewed: Yes I reviewed the patient's lab results. - Radiology Data Radiology results reviewed: Yes I reviewed the patient's radiology results. Disposition Pt seen by GENERAL OFFICE CLERK/PA only: Yes Clinical Impression: Pneumonia, Hypoxia, CHF (congestive heart failure), SOB (shortness of breath) Disposition: [facility] Condition: Fair Referrals: Shey Abebe ARNP [Primary Care Provider] - Time of Disposition: 11:41
--- NOTE | 2019-02-08 11:51 | XRay Report ---
CLINICAL INFORMATION: sob COMPARISON: 02/07/2019 FINDINGS: Moderate cardiomegaly is unchanged. Implantable cardioverter defibrillator remains in stable satisfactory position without complication. Mediastinum is unremarkable. Pulmonary vessels have returned to normal in caliber and interstitial edema has resolved. Left basilar infiltrate as resolved. Right basilar infiltrate is better aerated centrally but remains moderate size. IMPRESSION: 1. Complete interval resolution CHF 2. Complete resolution of left basilar infiltrate with moderate improvement in right basilar infiltrate. Interpreted and Authenticated by: Shoaib Hobson 02/08/19
[2019-02-08] MEDS ORDERED: IPRATROPIUM/ALBUTEROL 3 ML AMPUL.NEB NEB ONE (11:58)
[2019-02-08 12:15] LABS: Basophils # (Auto) 0 K/mcL (0.0-0.3); Basophils % (Auto) 0 % (0.0-2.0); Eosinophils # (Auto) 0 K/mcL (0.0-0.7); Eosinophils % (Auto) 0.2 % (0.0-7.0); Granulocytes % (Auto) 88.4 % (38.0-78.0); Lymphocytes # (Auto) 0.9 K/mcL (1.5-4.8); Lymphocytes % (Auto) 5.8 % (15.5-49.0); Mean Cell Volume 82.1 fL (80.0-100.0); Monocytes # (Auto) 0.9 K/mcL (0.1-0.9); Monocytes % (Auto) 5.6 % (1.0-12.0); Platelet Count 172 K/mcL (140-440); RBC 5.43 M/mcL (4.50-5.90); Red Cell Distribution Width 17.4 % (11.5-14.5)
[2019-02-08 12:42] LABS: ALT/SGPT 14 U/l (0-40); Albumin 3.8 gm/dL (3.2-5.2); Albumin/Globulin Ratio 1.5 (1.0-2.3); Alkaline Phosphatase 67 U/L (39-117); Blood Urea Nitrogen 25 mg/dl (8-23)
[2019-02-08] MEDS ORDERED: ACETAMINOPHEN 325 MG TABLET PO PRN (15:09)
[2019-02-08] MEDS ORDERED: NALOXONE HCL 0.4 MG/ML VIAL IV PRN (15:09)
[2019-02-08] MEDS ORDERED: oxyCODONE/APAP 5/325MG TABLET PO PRN (15:09)
[2019-02-08] MEDS ORDERED: ONDANSETRON 4 MG/2 ML VIAL IV PRN (15:09)
[2019-02-08] MEDS: FUROSEMIDE 40 MG/4 ML VIAL IV SCH (15:46)
[2019-02-08] MEDS: LEVOFLOXACIN 750 MG/150 ML BAG IV SCH (15:47)
[2019-02-08] MEDS: 0.9 % SODIUM CHLORIDE 10 ML SYRINGE IV SCH ×2 (15:47→20:54)
[2019-02-08] MEDS ORDERED: HYDROcodone/APAP 10/325MG TABLET PO PRN (15:49)
[2019-02-08] MEDS ORDERED: predniSONE 20 MG TABLET PO ONE (16:00)
[2019-02-08] MEDS ORDERED: WARFARIN 7.5 MG TABLET PO ONE (17:00)
[2019-02-08] MEDS: BUDESONIDE 0.5 MG/2 ML AMPUL.NEB NEB SCH ×2 (17:12→20:23)
[2019-02-08] MEDS: IPRATROPIUM/ALBUTEROL 3 ML AMPUL.NEB NEB SCH ×3 (17:12→22:24)
[2019-02-08] MEDS: METOPROLOL SUCCINATE 50 MG TAB.XL.24H PO SCH (20:54)
[2019-02-08] MEDS ORDERED: ATORVASTATIN 20 MG TABLET PO SCH (21:00)
--- NOTE | 2019-02-08 22:16 | Internal Med History&Physical ---
Medical - H&P: HPI Patient information: Note initiated : 02/08/19 at 10:13 pm Service Date, if different from initiated Date: [] Patient: Zachery Ordoñez a 83 y/o M admitted on 02/08/19 for SOB . Chief Complaint: [] History of present illness: Mr. Ordoñez is a 83 year old M with h/o of chf, copd on oxygen presents to the ER for evaluation of shortness of breath. The patient here yesterday for evaluation of shortness of breath to the emergency room and did not stay in the hospital. According to the patient he was at his baseline status, he was at the [facility] having a good time. 4 hours before presentation to the emergency room yesterday he developed sudden onset shortness of breath weakness, he therefore came to the ER for further evaluation. According to him he had taken a small oxygen tank and his oxygen tank ran out and that was the reason for shortness of breath. The patient usually uses 2 L of oxygen. Yesterday in the emergency room patient had leukocytosis around 12,700, BNP 976, chest x-ray suggestive of CHF or pneumonia. The patient was advised admission at that time however he declined admission and decided to go back home. He did not roller picker his prescription medications, he slept overnight according to him and his oxygen tank ran out again, and he therefore presented back to the hospital for further evaluation. The patient admits to having some subjective sensation of chills, but no fever. He has cough that has been bothering him since yesterday, but denies any chest pain headache changes in vision difficulty in swallowing no nausea vomiting no diarrhea no new skin rashes joint pains increased bleeding thinks that his memory is not as good as before otherwise feels okay. In the emergency room on presentation patient was hemodynamically stable, hypoxic on presentation oxygen saturation around 87% on 4 L of oxygen, Labs show hemoglobin of 14.3, WC count of 15.3 which is increased since yesterday, platelets 172, sodium 139 potassium 5.0 bicarbonate 26 creatinine 1 glucose 124, BNP worse at 2521, pro calcitonin elevated at 7.68. Chest x-ray shows complete resolution of CHF resolution of left basilar infiltrate and improved right basilar infiltrate. Given the patient has worsening WBC count, elevated pro-calcitonin increased oxygen needs patient has been admitted to the hospital for further management All systems: reviewed and no additional remarkable complaints except as stated (as per HPI rest negative) Medical - H&P: PMH Medical history: DM HTN HLD COPD on 2 L oxygen GERD AFib Obesity s/p aicd/ pacemaker Surgical history: shoulder sx rajesh carotid enarterectomy back surgery cholecystectomy Family history: reviewed and not pertinent Social history: former smoker denies etoh or recreational drug use. Family history: reviewed and not pertinent Social history: smoker denies drug use. Medical - H&P: Meds Home Medications Medication Instructions Recorded Confirmed Type atorvastatin 10 mg tablet 10 mg PO HS 05/10/18 02/08/19 History budesonide 0.5 mg/2 mL suspension 0.5 mg INHALATION BID 05/10/18 02/08/19 History for nebulization digoxin 125 mcg tablet 62.5 mcg PO QDAY 05/10/18 02/08/19 History hydrocodone 10 mg-acetaminophen 1 tab PO BIDP PRN 05/10/18 02/08/19 History 325 mg tablet ipratropium-albuterol 0.5 mg-3 3 ml INHALATION QIDP PRN 05/10/18 02/08/19 History mg(2.5 mg base)/3 mL nebulization soln metformin 500 mg tablet 500 mg PO BIDCC 05/10/18 02/08/19 History metoprolol succinate ER 50 mg 50 mg PO BID 05/10/18 02/08/19 History tablet,extended release 24 hr verapamil ER 180 mg 24 hr 240 mg PO QDAY 05/10/18 02/08/19 History capsule,extended release Aspirin [Adult Low Dose Aspirin EC] 81 mg PO DAILY 07/05/18 02/08/19 History Ferrous Sulfate [Iron] 325 mg PO QAMCC 07/05/18 02/08/19 History Fluticasone Hfa 220Mcg [Flovent 1 puff INH BID 07/05/18 02/08/19 History Hfa 220Mcg] Vardenafil HCl [Levitra] 10 mg PO PRN PRN 07/05/18 02/08/19 History Furosemide [Lasix] 40 mg PO DAILY #30 tab 02/07/19 02/08/19 Rx Levofloxacin [Levaquin] 500 mg PO DAILY #10 tab 02/07/19 02/08/19 Rx Anoro Ellipta 1 puff INH DAILY 02/08/19 02/08/19 History (Umeclidinium/Vilanterol) Warfarin [Coumadin] 5 mg PO SUMOTUWETHSA 02/08/19 02/08/19 History Warfarin [Coumadin] 7.5 mg PO FR 02/08/19 02/08/19 History Allergies Allergy/AdvReac Type Severity Reaction Status Date / Time morphine Allergy Intermediate Other Verified 07/13/18 08:46 Medical - H&P: Exam - Constitutional Vitals: Temp Pulse Resp BP Pulse Ox 98.5 F 86 22 110/66 94 02/08/19 20:00 02/08/19 17:24 02/08/19 20:00 02/08/19 20:00 02/08/19 20:00 Exam: GENERAL: The patient is a well-developed, well-nourished in no apparent distress. Is alert and oriented x3. VITAL SIGNS: Reviewed and as noted elsewhere. HEENT: Head is normocephalic and atraumatic. Extraocular muscles are intact. Pupils are equal, round, and reactive to light. Nares appeared normal. Mouth appears any without lesions. Mucous membranes are moist. NECK: Normal to inspection, Supple, No lymphadenopathy or thyromegaly. LUNGS: Air entry equal on both sides, no wheezing, crackles or rhonchi noted. No accessory muscles of respirationRespiratory system: Air Entry equal on both sides, prolonged exp phase, mild exp wheezing, bibasial crackles present speaking full sentences no accessory muscle use, HEART: Regular rate and rhythm normal, S1 and S2 heard, no Gallop, S3 or Rub Noted, No Gross murmur heard. chest wall has AICDi n place ABDOMEN: Soft, nontender, and nondistended. Positive bowel sounds. No he patosplenomegaly was noted. EXTREMITIES: No cyanosis, clubbing, rash, lesions, edema ++ NEUROLOGIC: Cranial nerves II through XII are grossly intact. Motor and Sensory System Grossly Intact PSYCHIATRIC: Normal affect, Normal Mood. Appropriate Behavior. SKIN: No ulceration or wounds noted, No jaundice, No rash noted. Medical - H&P: Reslt - Labs CBC & Chem 7: 02/08/19 11:29 02/08/19 11:29 Labs: Short CBC 02/08/19 Range/Units 11:29 WBC 15.3 H (4.5-11.0) K/mcL Hgb 14.3 (13.5-16.5) g/dL Hct 44.6 (41.0-55.0) % Plt Count 172 (140-440) K/mcL BMP 02/08/19 11:29 Sodium 139 Potassium 5.0 Chloride 102 Carbon Dioxide 26 BUN 25 H Creatinine 1.0 Glucose 124 H Calcium 9.4 Liver Function 02/08/19 Range/Units 11:29 Total Bilirubin 2.4 H (0.0-1.0) mg/dL AST 17 (0-37) U/l ALT 14 (0-40) U/l Alkaline Phosphatase 67 (39-117) U/L Albumin 3.8 (3.2-5.2) gm/dL Medical - H&P: A/P - Narrative A/P Narrative: A/P Pneumonia -blood cultures were sent yesterday, will follow result, send viral panel, sputum cx -IV levofloxacin for now Acute on chr respiratory failure -on oxygen at baseline, now needing 4L to keep osat > 90 titrate oxygen via nc, use bipap if worsens Acute exacerbation of COPD -Steroids, duonebs and antibiotics Acute CHF exacerbatin, worsening bnp, but cxr is improving IV lasix for now DM SSI insulin for glucose control HTN BP stable, resume home meds AFib rate controlled, on coumadin -trend INR, pharmacy to manage coumadin dosing DVT hep sq, d/c when INR > 2.0 Full code Medical - H&P: Qual - VTE Deep Vein Thrombosis/Pulmonary Embolism Present on Admission: No
[2019-02-08] MEDS ORDERED: DEXTROSE 50% 50 ML VIAL IV PRN (22:21)
[2019-02-08] MEDS ORDERED: DEXTROSE 31 GM ORAL.SUSP PO PRN (22:21)
[2019-02-08] MEDS ORDERED: HEPARIN 5,000 UNIT/ML VIAL ONE (22:34)
[2019-02-08] MEDS: HEPARIN 5,000 UNIT/ML VIAL SQ SCH (22:39)
[2019-02-09] MEDS: IPRATROPIUM/ALBUTEROL 3 ML AMPUL.NEB NEB SCH ×5 (04:01→18:50)
[2019-02-09] MEDS: 0.9 % SODIUM CHLORIDE 10 ML SYRINGE IV SCH ×3 (05:48→20:25)
[2019-02-09 07:10] LABS: Basophils # (Auto) 0 K/mcL (0.0-0.3); Basophils % (Auto) 0.2 % (0.0-2.0); Eosinophils # (Auto) 0.1 K/mcL (0.0-0.7); Eosinophils % (Auto) 0.7 % (0.0-7.0); Granulocytes % (Auto) 89.7 % (38.0-78.0); Lymphocytes # (Auto) 0.5 K/mcL (1.5-4.8); Lymphocytes % (Auto) 6.1 % (15.5-49.0); Mean Cell Volume 80.5 fL (80.0-100.0); Mean Corpuscular HGB Conc 32.9 g/dL (31.0-36.0); Monocytes # (Auto) 0.3 K/mcL (0.1-0.9); Monocytes % (Auto) 3.3 % (1.0-12.0); Platelet Count 148 K/mcL (140-440); RBC 4.64 M/mcL (4.50-5.90); Red Cell Distribution Width 16.7 % (11.5-14.5)
[2019-02-09 07:28] LABS: ALT/SGPT 11 U/l (0-40); Albumin/Globulin Ratio 1.2 (1.0-2.3); Alkaline Phosphatase 59 U/L (39-117); Bilirubin,Direct 0.2 mg/dL (0.0-0.3); Blood Urea Nitrogen 25 mg/dl (8-23); Gamma Glutamyl Transpeptidase 20 U/L (8-61); Uric Acid 6.7 mg/dL (2.5-8.0)
[2019-02-09] MEDS: BUDESONIDE 0.5 MG/2 ML AMPUL.NEB NEB SCH ×2 (07:38→19:00)
[2019-02-09] MEDS: INSULIN LISPRO 1 UNIT/0.01 ML UNIT SQ SCH ×4 (07:59→20:24)
[2019-02-09] MEDS ORDERED: FERROUS SULFATE 325 MG TABLET PO SCH (08:00)
[2019-02-09] MEDS ORDERED: predniSONE 20 MG TABLET PO SCH (08:00)
[2019-02-09] MEDS: LEVOFLOXACIN 750 MG/150 ML BAG IV SCH (08:01)
[2019-02-09] MEDS: FUROSEMIDE 40 MG/4 ML VIAL IV SCH (08:01)
[2019-02-09] MEDS: HEPARIN 5,000 UNIT/ML VIAL SQ SCH ×2 (08:02→20:25)
[2019-02-09] MEDS: METOPROLOL SUCCINATE 50 MG TAB.XL.24H PO SCH ×2 (08:02→20:25)
[2019-02-09] MEDS ORDERED: ANORO ELLIPTA INH SCH (09:00)
[2019-02-09] MEDS ORDERED: ASPIRIN 81 MG TAB.CHEW PO SCH (09:00)
[2019-02-09] MEDS ORDERED: DIGOXIN 125 MCG TABLET PO SCH (14:00)
--- NOTE | 2019-02-09 14:00 | Internal Med Progress Note ---
Medical - PN: Subj Patient information: Note initiated : 02/09/19 at 1:57 pm Service Date, if different from initiated Date: [] Patient: Zachery Ordoñez a 83 y/o M admitted on 02/08/19 for SOB . Chief Complaint: [] Interval history: Mr. Ordoñez is a 83 year old M with h/o of chf, copd on oxygen presents to the ER for evaluation of shortness of breath. The patient here yesterday for evaluation of shortness of breath to the emergency room and did not stay in the hospital. According to the patient he was at his baseline status, he was at the [facility] having a good time. 4 hours before presentation to the emergency room yesterday he developed sudden onset shortness of breath weakness, he therefore came to the ER for further evaluation. According to him he had taken a small oxygen tank and his oxygen tank ran out and that was the reason for shortness of breath. The patient usually uses 2 L of oxygen. Yesterday in the emergency room patient had leukocytosis around 12,700, BNP 976, chest x-ray suggestive of CHF or pneumonia. The patient was advised admission at that time however he declined admission and decided to go back home. 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 The patient admits to having some subjective sensation of chills, but no fever. He has cough that has been bothering him since yesterday, but denies any chest pain headache changes in vision difficulty in swallowing no nausea vomiting no diarrhea no new skin rashes joint pains increased bleeding thinks that his memory is not as good as before otherwise feels okay. In the emergency room on presentation patient was hemodynamically stable, hypoxic on presentation oxygen saturation around 87% on 4 L of oxygen, Labs show hemoglobin of 14.3, WC count of 15.3 which is increased since yesterday, platelets 172, sodium 139 potassium 5.0 bicarbonate 26 creatinine 1 glucose 124, BNP worse at 2521, pro calcitonin elevated at 7.68. Chest x-ray shows complete resolution of CHF resolution of left basilar infiltrate and improved right basilar infiltrate. Given the patient has worsening WBC count, elevated pro-calcitonin increased oxygen needs patient has been admitted to the hospital for further management 02/09 Patient seen and examined, no acute overnight events, no acute events reported on telemetry. Feels much better. WBC count is trending down, cultures are negative so far. Patient remains on IV Lasix IV levofloxacin. If remains stable by tomorrow we will discharge home. Transfer to [facility] status Pertinent ROS: Denies headache, dizziness Denies chest pain, palpitations Denies cough or shortness of breath Denies abdominal pain, nausea or vomiting. - Constitutional Vitals: Vital Signs Temp Pulse Resp BP Pulse Ox 97.7 F 70 18 96/64 96 02/09/19 12:00 02/09/19 07:52 02/09/19 12:00 02/09/19 12:00 02/09/19 12:00 Period Temp Pulse Resp BP Sys/Montano Pulse Ox Last 24 Hr 97.7 F-98.6 F 70-86 12-26 96-143/62-90 90-98 Intake and Output 02/08/19 02/09/19 02/09/19 21:59 05:59 13:59 Intake Total 150 240 Output Total 458 855 9704 Balance -400 -500 -910 Weight 208 lb Intake & Output: Intake & Output 02/08/19 02/09/19 02/09/19 21:59 05:59 13:59 Intake Total 150 240 Output Total 429 006 2867 Balance -400 -500 -910 Weight 208 lb Intake: IV 150 Oral 240 Output: Void Amount [phone] Other: Meal Lunch Percent of Meal Consumed 100% Feeding Ability Assist with Tray Set Up Urine Color Dark Yellow Urine Odor Normal # Voids 2 Exam: Constitutional; Afebrile, cooperative, alert, not in distress. Respiratory system: Air Entry equal on both sides, mild exp wheeze , but air e ntry much better CVS- Rate rhythm regular, S1,S2 heard, no gallop, no rub. Abdomen- Soft nontender abdomen, no organomegaly, no tenderness, no guarding or rigidity, LIQUOR CLERK- AOOx3, moving all extremities, no gross focal deficit noted. Medical - PN: Obj Da - Labs CBC & Chem 7: 02/09/19 04:15 02/09/19 04:15 Labs: Abnormal Lab Results 02/09/19 02/09/19 02/09/19 04:15 04:15 04:15 WBC Hgb 12.3 L Hct 37.3 L RDW 16.7 H Gran % 89.7 H Lymph % (Auto) 6.1 L Gran # Lymph # (Auto) 0.5 L PT 17.5 H INR 1.4 H BUN 25 H Glucose 140 H Total Bilirubin 1.5 H NT-Pro-B Natriuret Pep Total Protein 5.6 L Albumin 3.0 L 02/08/19 02/08/19 02/08/19 11:29 11:29 11:29 WBC 15.3 H Hgb Hct RDW 17.4 H Gran % 88.4 H Lymph % (Auto) 5.8 L Gran # 13.5 H Lymph # (Auto) 0.9 L PT 16.5 H INR 1.3 H BUN 25 H Glucose 124 H Total Bilirubin 2.4 H NT-Pro-B Natriuret Pep 2521.0 H Total Protein Albumin Meds: Medications Acetaminophen (Tylenol) 650 mg PO Q6HP PRN PRN Reason: PAIN/FEVER > 101 Albuterol/Ipratropium (Duoneb) 3 ml NEB Q4HRT [facility] Last Admin: 02/09/19 13:22 Dose: Not Given Documented by: Aspirin (Aspirin) 81 mg PO DAILY [facility] Last Admin: 02/09/19 08:02 Dose: 81 mg Documented by: Atorvastatin Calcium (Lipitor) 10 mg PO HS [facility] Last Admin: 02/08/19 20:54 Dose: 10 mg Documented by: Budesonide (Pulmicort) 0.5 mg NEB Q12 [facility] Last Admin: 02/09/19 07:38 Dose: 0.5 mg Documented by: Dextrose (Dextrose 50%) 0 ml IV UD PRN PRN Reason: Hypoglycemia Diagnostic Test (Pha) (Accu-Chek) 1 each FS ACHS [facility] Last Admin: 02/09/19 13:20 Dose: 1 each Documented by: Digoxin (Lanoxin) 62.5 mcg PO DAILY@1400 [facility] Ferr[facility] ([facility] S[facility]ate) [facility] Admin: 02/09/19 08:02 Dose: 325 mg Documented by: Furosemide (Lasix) 40 mg IV BIDD [facility] Last Admin: 02/09/19 08:01 Dose: 40 mg Documented by: Glucose (Insta-Glucose) 15 gm PO PRN PRN PRN Reason: Hypoglycemia Heparin Sodium (Porcine) (Heparin) 5,000 unit SQ Q12 [facility] Last Admin: 02/09/19 08:02 Dose: 5,000 unit Documented by: Levofloxacin (Levaquin) 750 mg in 150 mls @ 100 mls/hr IV Q24H [facility]; Protocol Last Admin: 02/09/19 08:01 Dose: 100 mls/hr Documented by: Insulin Human Lispro (Humalog) 0 unit SQ ACHS [facility]; Protocol Last Admin: 02/09/19 13:21 Dose: Not Given Documented by: Metoprolol Succinate (Toprol Xl) 50 mg PO BID [facility] Last Admin: 02/09/19 08:02 Dose: 50 mg Documented by: Naloxone HCl (Narcan) 0.1 mg IV Q2MIN PRN PRN Reason: Opiate Reversal Ondansetron HCl (Zofran) 4 mg IV Q4HP PRN PRN Reason: Nausea And Vomiting Oxycodone/Acetaminophen (Percocet 5-325 Mg) 1 tab PO Q4HP PRN PRN Reason: pain not responding to apap Anoro Ellipta ( Umeclidinium/Vilanterol) 62.5/25 Mcg Inhaler 1 dose INH DAILY [facility] Last Admin: 02/09/19 07:26 Dose: Not Given Documented by: Prednisone (Prednisone) 40 mg PO QAC [facility] Last Admin: 02/09/19 08:02 Dose: 40 mg Documented by: Sodium Chloride (Saline Flush) 10 ml IV Q8 [facility] Last Admin: 02/09/19 13:21 Dose: 10 ml Documented by: Warfarin Sodium (Coumadin Per Pharmacy) 1 order PO UD [facility] Medical - PN: A/P - Time Spent With Patient Total time spent is greater than 50% in coordination of care (as documented) at patient's floor/unit and/or counseling patient: - Narrative A/P Narrative: A/P Pneumonia -blood cultures were sent yesterday, will follow result, send viral panel, sputum cx -IV levofloxacin for now, day 2 today Acute on chr respiratory failure -on oxygen at baseline 2 L, back to [facility] oxygen needs Acute exacerbation of COPD -Steroids, duonebs and antibiotics -responded well to treatment. Acute CHF exacerbatin, worsening bnp, but cxr is improving IV lasix for now DM SSI insulin for glucose control HTN BP stable, resume home meds AFib rate controlled, on coumadin -trend INR, pharmacy to manage coumadin dosing DVT hep sq, d/c when INR > 2.0 Full code Medical - PN: Qual - VTE Deep Vein Thrombosis/Pulmonary Embolism Present on Admission: No
[2019-02-09] MEDS ORDERED: oxyCODONE/APAP 5/325MG TABLET PO PRN (14:49)
[2019-02-09] MEDS ORDERED: ACETAMINOPHEN 325 MG TABLET PO PRN (14:49)
[2019-02-09] MEDS ORDERED: ONDANSETRON 4 MG/2 ML VIAL IV PRN (14:49)
[2019-02-09] MEDS ORDERED: DEXTROSE 50% 50 ML VIAL IV PRN (14:49)
[2019-02-09] MEDS ORDERED: NALOXONE HCL 0.4 MG/ML VIAL IV PRN (14:49)
[2019-02-09] MEDS ORDERED: DEXTROSE 31 GM ORAL.SUSP PO PRN (14:49)
[2019-02-09] MEDS ORDERED: WARFARIN 7.5 MG TABLET PO ONE (15:00)
[2019-02-09] MEDS ORDERED: FUROSEMIDE 40 MG/4 ML VIAL IV SCH (16:00)
[2019-02-09] MEDS: FUROSEMIDE 40 MG TABLET PO SCH (17:54)
[2019-02-09] MEDS ORDERED: ATORVASTATIN 20 MG TABLET PO SCH (21:00)
[2019-02-10] MEDS: IPRATROPIUM/ALBUTEROL 3 ML AMPUL.NEB NEB SCH ×3 (00:13→07:38)
[2019-02-10] MEDS: 0.9 % SODIUM CHLORIDE 10 ML SYRINGE IV SCH (06:00)
[2019-02-10 07:03] LABS: Basophils # (Auto) 0 K/mcL (0.0-0.3); Basophils % (Auto) 0 % (0.0-2.0); Eosinophils # (Auto) 0 K/mcL (0.0-0.7); Eosinophils % (Auto) 0.1 % (0.0-7.0); Granulocytes % (Auto) 86.4 % (38.0-78.0); Lymphocytes # (Auto) 0.8 K/mcL (1.5-4.8); Lymphocytes % (Auto) 8.4 % (15.5-49.0); Mean Cell Volume 82.2 fL (80.0-100.0); Mean Corpuscular HGB Conc 32.2 g/dL (31.0-36.0); Monocytes # (Auto) 0.5 K/mcL (0.1-0.9); Monocytes % (Auto) 5.1 % (1.0-12.0); Platelet Count 160 K/mcL (140-440); RBC 4.82 M/mcL (4.50-5.90); Red Cell Distribution Width 17.6 % (11.5-14.5)
[2019-02-10] MEDS: INSULIN LISPRO 1 UNIT/0.01 ML UNIT SQ SCH (07:04)
[2019-02-10 07:34] LABS: ALT/SGPT 11 U/l (0-40); Albumin 3.2 gm/dL (3.2-5.2); Albumin/Globulin Ratio 1.1 (1.0-2.3); Alkaline Phosphatase 62 U/L (39-117); Bilirubin,Direct < 0.2 mg/dL (0.0-0.3); Blood Urea Nitrogen 30 mg/dl (8-23); Gamma Glutamyl Transpeptidase 21 U/L (8-61); Uric Acid 7.6 mg/dL (2.5-8.0)
[2019-02-10] MEDS: BUDESONIDE 0.5 MG/2 ML AMPUL.NEB NEB SCH (07:40)
[2019-02-10] MEDS ORDERED: predniSONE 20 MG TABLET PO SCH (08:00)
[2019-02-10] MEDS ORDERED: FERROUS SULFATE 325 MG TABLET PO SCH (08:00)
[2019-02-10] MEDS ORDERED: ANORO ELLIPTA INH SCH (09:00)
[2019-02-10] MEDS ORDERED: ASPIRIN 81 MG TAB.CHEW PO SCH (09:00)
[2019-02-10] MEDS ORDERED: LEVOFLOXACIN 750 MG/150 ML BAG IV SCH (09:00)
[2019-02-10] MEDS ORDERED: LEVOFLOXACIN 750 MG TABLET PO SCH (09:00)
[2019-02-10] MEDS: FUROSEMIDE 40 MG TABLET PO SCH (09:42)
[2019-02-10] MEDS: HEPARIN 5,000 UNIT/ML VIAL SQ SCH (09:43)
[2019-02-10] MEDS: METOPROLOL SUCCINATE 50 MG TAB.XL.24H PO SCH (09:43)
--- NOTE | 2019-02-10 10:16 | Discharge Summary ---
Medical - DS: Prov Patient information: Note initiated : 02/10/19 at 10:10 am Service Date, if different from initiated Date: [] Patient: Zachery Ordoñez 83 y/o M admitted on 02/08/19 for SOB . Chief Complaint: [] Date of admission: 02/08/19 15:01 Discharge date: 02/10/19 Primary care physician: Shey Abebe Consults: 02/08/19 Consult to Physician [CONS] Stat Comment: Consulting Provider: Alicja Ramos Reason For Exam: Physician to Consult Discharging clinician: Alicja Ramos Medical - DS: Meds - Discharge Medications Prescriptions: Levofloxacin [Levaquin] 750 mg PO DAILY #4 tab predniSONE [Prednisone] 40 mg PO [facility] #6 tab Active and Home Medications: Home Medications atorvastatin 10 mg tablet 10 mg PO HS 05/10/18 [History Confirmed 02/08/19 Last Taken 02/06/19 20:00] budesonide 0.5 mg/2 mL suspension for nebulization 0.5 mg INHALATION BID 05/10/18 [History Confirmed 02/08/19 Last Taken 02/08/19 06:00] digoxin 125 mcg tablet 62.5 mcg PO QDAY 05/10/18 [History Confirmed 02/08/19 Last Taken Unknown] hydrocodone 10 mg-acetaminophen 325 mg tablet 1 tab PO BIDP PRN 05/10/18 [History Confirmed 02/08/19 Last Taken Unknown] ipratropium-albuterol 0.5 mg-3 mg(2.5 mg base)/3 mL nebulization soln 3 ml INHALATION QIDP PRN 05/10/18 [History Confirmed 02/08/19 Last Taken 02/07/19 08:00] metformin 500 mg tablet 500 mg PO BIDCC 05/10/18 [History Confirmed 02/08/19 Last Taken 02/07/19 17:00] metoprolol succinate ER 50 mg tablet,extended release 24 hr 50 mg PO BID 05/10/18 [History Confirmed 02/08/19 Last Taken 02/07/19 17:00] verapamil ER 180 mg 24 hr capsule,extended release 240 mg PO QDAY 05/10/18 [History Confirmed 02/08/19 Last Taken 02/07/19 08:00] Aspirin [Adult Low Dose Aspirin EC] 81 mg PO DAILY 07/05/18 [History Confirmed 02/08/19 Last Taken 02/07/19 08:00] Ferrous Sulfate [Iron] 325 mg PO QAMCC 07/05/18 [History Confirmed 02/08/19 Last Taken 02/07/19 08:00] Fluticasone Hfa 220Mcg [Flovent Hfa 220Mcg] 1 puff INH BID 07/05/18 [History Confirmed 02/08/19 Last Taken 02/07/19 20:00] Vardenafil HCl [Levitra] 10 mg PO PRN PRN 07/05/18 [History Confirmed 02/08/19 Last Taken Unknown] Furosemide [Lasix] 40 mg PO DAILY #30 tab 02/07/19 [Rx Confirmed 02/08/19 Last Taken 02/07/19 08:00] Levofloxacin [Levaquin] 500 mg PO DAILY #10 tab 02/07/19 [Rx Confirmed 02/08/19 Last Taken Unknown] Anoro Ellipta (Umeclidinium/Vilanterol) 1 puff INH DAILY 02/08/19 [History Confirmed 02/08/19 Last Taken 02/08/19 08:00] Warfarin [Coumadin] 5 mg PO SUMOTUWETHSA 02/08/19 [History Confirmed 02/08/19 Last Taken 02/06/19 19:00] Warfarin [Coumadin] 7.5 mg PO FR 02/08/19 [History Confirmed 02/08/19 Last Taken 02/04/19 20:00] Medical - DS: Hosp Hospital course: Mr. Ordoñez is a 83 year old M with h/o of chf, copd on oxygen presents to the ER for evaluation of shortness of breath. The patient here yesterday for evaluation of shortness of breath to the emergency room and did not stay in the hospital. According to the patient he was at his baseline status, he was at the [facility] having a good time. 4 hours before presentation to the emergency room yesterday he developed sudden onset shortness of breath weakness, he therefore came to the ER for further evaluation. According to him he had taken a small oxygen tank and his oxygen tank ran out and that was the reason for shortness of breath. The patient usually uses 2 L of oxygen. Yesterday in the emergency room patient had leukocytosis around 12,700, BNP 976, chest x-ray suggestive of CHF or pneumonia. The patient was advised admission at that time however he declined admission and decided to go back home. 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 The patient admits to having some subjective sensation of chills, but no fever. He has cough that has been bothering him since yesterday, but denies any chest pain headache changes in vision difficulty in swallowing no nausea vomiting no diarrhea no new skin rashes joint pains increased bleeding thinks that his memory is not as good as before otherwise feels okay. In the emergency room on presentation patient was hemodynamically stable, hypoxic on presentation oxygen saturation around 87% on 4 L of oxygen, Labs show hemoglobin of 14.3, WC count of 15.3 which is increased since yesterday, platelets 172, sodium 139 potassium 5.0 bicarbonate 26 creatinine 1 glucose 124, BNP worse at 2521, pro calcitonin elevated at 7.68. Chest x-ray shows complete resolution of CHF resolution of left basilar infiltrate and improved right basilar infiltrate. Given the patient has worsening WBC count, elevated pro-calcitonin increased oxygen needs patient has been admitted to the hospital for further management 02/09 Patient seen and examined, no acute overnight events, no acute events reported on telemetry. Feels much better. WBC count is trending down, cultures are negative so far. Patient remains on IV Lasix IV levofloxacin. If remains stable by tomorrow we will discharge home. Transfer to [facility] status 02/10 Patient seen examined, no acute issues, is at back to baseline. anxious for discharge, and is stable for discharge will d/c with po antibiotics for another 4 days to complete a 7 day course Prednisone for another 3 days, annabelle pal, no wheeze on exam, is on baseline oxygen needs. In summary Patient admitted to the hospital with shortness of breath, acute on chronic hypoxic respiratory failure secondary to pneumonia, CHF exacerbation as well as COPD exacerbation. Patient was treated with IV antibiotics, diuretics steroids and nebulizer treatment. Patient responded to treatment very well. Patient will be discharged on short burst of prednisone, he will complete a course of oral antibiotics, and resume his home diuretic regimen. The patient takes Coumadin, INR is 1.7, advised to continue his Coumadin and follow-up with his PCP I have not made any changes to his home medication regimen. Discharge diagnosis: PNA, COPD exacerbation - Time Spent with Patient Total time spent providing and/or coordinating discharge services: Greater than 30 minutes Medical - DS: Exam - Constitutional Vitals: Vital Signs Temp Pulse Pulse Resp BP BP Pulse Ox 02/10/19 08:00 97.4 F 70 20 133/80 98 02/10/19 07:09 97 02/10/19 04:00 97.4 F 72 20 152/82 99 02/10/19 00:15 97.2 F 70 20 132/72 95 02/09/19 19:40 97.8 F 71 24 H 110/67 94 02/09/19 18:52 69 16 02/09/19 16:00 97.7 F 81 16 96/64 96 02/09/19 15:01 71 16 02/09/19 12:00 97.7 F 18 96/64 96 Intake and Output 02/09/19 02/10/19 02/10/19 21:59 05:59 13:59 Intake Total 600 300 Output Total 200 800 350 Balance 400 -500 -350 Intake: Oral 600 300 Output: Void Amount 200 800 350 Other: Meal Dinner Percent of Meal Consumed 100% Feeding Ability Assist with Tray Set Up Urine Appearance Clear Clear Urine Color Dark Yellow Bright Yellow Urine Odor Normal Normal Stool Size Small Stool Color Brown Stool Consistency Soft # Voids 1 # Bowel Movements 1 Weight 209 lb Additional comments: Constitutional; Afebrile, cooperative, alert, not in distress. Respiratory system: Air Entry equal on both sides, No crackles or wheezing, no rhonchi. CVS- Rate rhythm regular, S1,S2 heard, no gallop, no rub. Abdomen- Soft nontender abdomen, no organomegaly, no tenderness, no guarding or rigidity, DIVISION SUPERINTENDENT- AOOx3, moving all extremities, no gross focal deficit noted. Medical - DS: Data Labs on day of discharge: Labs from last 24 hours 02/10/19 02/10/19 02/10/19 05:15 05:15 05:15 WBC 9.4 RBC 4.82 Hgb 12.7 L Hct 39.6 L MCV 82.2 MCH 26.4 MCHC 32.2 RDW 17.6 H Plt Count 160 MPV 8.9 Gran % 86.4 H Lymph % (Auto) 8.4 L [place] % (Auto) 5.1 Eos % (Auto) 0.1 Baso % (Auto) 0 Gran # 8.1 H Lymph # (Auto) 0.8 L [place] # (Auto) 0.5 Eos # (Auto) 0 Baso # (Auto) 0 PT 20.3 H INR 1.7 H Sodium 140 Potassium 4.2 Chloride 101 Carbon Dioxide 28 Anion Gap 11.0 BUN 30 H Creatinine 1.1 GFR Calculation 63 Glucose 102 Uric Acid 7.6 Calcium 9.0 Phosphorus 2.7 Magnesium 2.1 Total Bilirubin 1.1 H Direct Bilirubin < 0.2 GGT 21 AST 12 ALT 11 Alkaline Phosphatase 62 Lactate Dehydrogenase 222 Total Protein 6.0 Albumin 3.2 Globulin 2.8 Albumin/Globulin Ratio 1.1 Triglycerides 62 Preliminary micro results at discharge 02/08/19 17:48 Sputum Culture - Preliminary Sputum - Induced Medical - DS: A/P - Patient/Caregiver Discharge Instructions Activity: as per physical therapy, increase activity as tolerated Diet: Cardiac Additional Instructions: Follow up with PCP in 1 week Take antibiotics till gone, Take prednisone 40mg, (2 tabs) with food or milk daily till gone, Use your nebulizer albuterol/ipratropium 4 times a day for next week, then back to your usual schedule Check your INR in 2 days go to the ER if worsening shortness of breath, headache, chest pain and or any other acute concern. I am giving you a physical therapy prescription, go to outpatient Physical therapist of your choice rehab. - Follow up Plan Follow up with: Shey Abebe ARNP [Primary Care Provider] - Disposition: Home, Self-Care Prognosis: Fair Rehab Potential: Fair I certify that the patient requires SNF services: No Overall status at discharge: patient is progressing back to baseline Medical - DS: Qual - VTE Deep Vein Thrombosis/Pulmonary Embolism Present on Admission: No
[2019-02-10] MEDS ORDERED: DIGOXIN 125 MCG TABLET PO SCH (14:00)
== END 2019-02-10 11:39 | disposition home or self-care (01) | DRG 190 ==
LOC: ED 11:05 → ICU 15:01 → MEDSUR 02-09 18:18
PROVIDERS: ADMIT Internal Medicine; ATTEND Internal Medicine

== ENCOUNTER 2020-08-14 12:14 | Inpatient (IN) ==
[2020-08-14] MEDS ORDERED: 0.9 % SODIUM CHLORIDE 500 ML IV ONE (12:45)
--- NOTE | 2020-08-14 13:06 | Emergency Department Note ---
SOB HPI General Chief Complaint: Shortness of Breath/Dyspnea Stated Complaint: shortness of breath Time Seen by Provider: 08/14/20 12:24 Source: patient Mode of arrival: ambulatory Limitations: no limitations History of Present Illness HPI Narrative: Narrative: This pleasant Related Data Home Medications Medication Instructions Recorded Confirmed atorvastatin 10 mg tablet 10 mg PO HS 05/10/18 05/30/20 digoxin 125 mcg (0.125 mg) tablet 62.5 mcg PO QDAY 05/10/18 05/30/20 ipratropium 0.5 mg-albuterol 3 mg 3 ml INHALATION QIDP PRN 05/10/18 05/30/20 (2.5 mg base)/3 mL nebulization soln Anoro Ellipta 1 puff INH DAILY 02/08/19 04/23/20 (Umeclidinium/Vilanterol) warfarin 5 mg PO SUMOTUWETHSA 02/08/19 05/30/20 warfarin 7.5 mg PO FR 02/08/19 05/30/20 clotrimazole 1 % topical cream 1 applic TOPICAL BID PRN 08/18/19 05/30/20 budesonide 0.5 mg/2 mL suspension 0.5 mg INHALATION BID PRN 12/16/19 07/18/20 for nebulization hydrocodone 10 mg-acetaminophen 1 tab PO BID PRN tab 12/16/19 07/18/20 325 mg tablet furosemide 20 mg tablet See Rx Instructions .ROUTE .COMPLEX 05/30/20 07/18/20 Previous Rx's Medication Instructions Recorded tamsulosin 0.4 mg capsule 0.4 mg PO QDAY #30 cap 08/25/19 metoprolol succinate 50 mg capsule 50 mg PO QDAY #30 each 12/16/19 sprinkle, ext. release 24 hr ferrous sulfate 325 mg (65 mg 325 mg PO QDAY #90 tab 05/30/20 iron) tablet potassium chloride 10 mEq 10 meq PO .qod #60 tab 05/30/20 tablet,extended release verapamil 120 mg 24 hr 120 mg PO QAM #90 cap 05/30/20 capsule,extended release Allergies Allergy/AdvReac Type Severity Reaction Status Date / Time morphine Allergy Intermediate Other Verified 08/14/20 12:18 doxycycline Allergy Unknown Unknown Verified 08/14/20 12:18 Review of Systems ROS ROS Narrative: Narrative: PFSH Narrative Patient History Narrative: Narrative: Medical/Surgical/Family History All Active Problems (Updated 08/14/20 @ 16:55 by Je Larios DO) CHF exacerbation (Acute) Hypotension (Acute) Anemia (Acute) Hypoxia (Acute) History of urinary retention (Acute) Hypotension (Acute) Acute kidney injury superimposed on chronic kidney disease (Acute) Atrial fibrillation (Chronic) Diabetes mellitus (Chronic 2008) Paroxysmal atrial fibrillation (Chronic 12/04/16) Chronic atrial fibrillation (Chronic 06/24/19) Congestive heart failure (Chronic 11/26/17) Essential hypertension (Chronic 1999) 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, moderately decreased glomerular filtration rate (GFR) between 30-44 mL/min/1.73 square meter and albuminuria cr eatinine ratio less than 30 mg/g (Chronic) Coffee ground emesis (Acute) COPD (chronic obstructive pulmonary disease) (Chronic) Anemia (Chronic) Chronic renal failure, stage 2 (mild) (Acute) GERD (gastroesophageal reflux disease) (Chronic 05/05/18) Bacterial cystitis (Acute) Elevated INR (international normalized ratio) (Acute) RBC microcytosis (Acute) History of tobacco use (Chronic 05/05/18) History of cardiac arrest (Chronic 12/04/16) Memory impairment (Chronic 03/20/17) Lumbar radiculopathy (Chronic 12/11/17) Chronic low back pain (Chronic 05/05/18) Spinal stenosis of lumbar region (Chronic 01/14/18) 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) Osteoarthritis (Chronic 02/18/17) Erectile dysfunction (Chronic 01/07/18) Abdominal aortic aneurysm without rupture (Chronic 04/21/17) Left carotid artery stenosis (Chronic 2011) Obesity (Chronic 05/05/18) Hypercholesterolemia (Chronic 12/04/16) UTI (urinary tract infection) (Chronic) Medical History (Updated 08/14/20 @ 16:55 by Je Larios DO) Abdominal aortic aneurysm without rupture (Chronic 04/21/17) Acute exacerbation of chronic obstructive airways disease (Resolved 08/12/18) Acute retention of urine (Resolved) Anemia (Chronic) Atrial fibrillation (Chronic) Bacterial cystitis (Acute) 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) Chronic atrial fibrillation (Chronic 06/24/19) Chronic kidney disease (CKD) stage G3b/A1, moderately decreased glomerular filtration rate (GFR) between 30-44 mL/min/1.73 square meter and albuminuria creatinine ratio less than 30 mg/g (Chronic) Chronic low back pain (Chronic 05/05/18) Chronic renal failure, stage 2 (mild) (Acute) Coffee ground emesis (Acute) Congestive heart failure (Chronic 11/26/17) and 07/05/2018 Constipation (Resolved) Constipation (Resolved) COPD (chronic obstructive pulmonary disease) (Chronic) 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) Diabetes mellitus (Chronic 2008) Elevated INR (international normalized ratio) (Acute) Erectile dysfunction (Chronic 01/07/18) Essential hypertension (Chronic 1999) GERD (gastroesophageal reflux disease) (Chronic 05/05/18) resolved History of cardiac arrest (Chronic 12/04/16) History of tobacco use (Chronic 05/05/18) Hypercholesterolemia (Chronic 12/04/16) Hypoxia (Resolved) Left carotid artery stenosis (Chronic 2011) Low blood pressure, not hypotension (Resolved) Lumbar radiculopathy (Chronic 12/11/17) Memory impairment (Chronic 03/20/17) Obesity (Chronic 05/05/18) Osteoarthritis (Chronic 02/18/17) Paroxysmal atrial fibrillation (Chronic 12/04/16) Pneumonia (Resolved) Pneumonia (Resolved 03/15/19) RBC microcytosis (Acute) Spinal stenosis of lumbar region (Chronic 01/14/18) Urinary retention (Resolved) started tamsulosin 08/2019 UTI (urinary tract infection) (Chronic) UTI (urinary tract infection) (Resolved) Surgical History History of back surgery (Chronic 11/23/12) History of cataract surgery (Chronic) History of cholecystectomy (Chronic 11/23/99) History of endarterectomy (Chronic 11/23/11) History of heart surgery (Chronic 11/23/08) X 2, 11/23/02 ICD Placement, 11/23/08 Generator Change History of shoulder surgery (Chronic 11/23/79) Bilateral History of spinal fusion (Chronic 11/23/1959) Family History Substance abuse Family/Other Child Social History Smoking Status: Former smoker Alcohol Intake Frequency: does not drink Substance Use: does not use Exam Narrative Narrative: Narrative: General Limitations: no limitations Course Vital Signs Vital signs: Vital Signs Temperature 97.6 F 08/14/20 12:15 Pulse Rate 60 08/14/20 12:15 Respiratory Rate 20 08/14/20 12:15 Blood Pressure 84/31 08/14/20 12:15 Pulse Oximetry (%) 90 08/14/20 12:15 Temperature 97.6 F 08/14/20 12:15 Pulse Rate 59 L 08/14/20 16:34 Respiratory Rate 25 H 08/14/20 16:34 Blood Pressure 109/61 08/14/20 16:34 Pulse Oximetry (%) 94 08/14/20 16:34 MDM MDM Narrative Medical decision making narrative: Narrative: 12:25 PM - primarily shortness of breath with acceleration. Here having hypoxia even on 2 L and so oxygen has been increased. He is showing low blood pressures. Small amount of fluid ordered i.e., 500 cc. 12:59 PM - EKG demonstrates AV dual placed rhythm "with some inhibition". Rate is around 60. In comparison with a November EKG is unchanged. 1:38 PM - labs as below include a BNP that went back up to 2200. Has bounced between 850-2500 in the past year and a half. Has a normal white count at 8.1. His anemia is stable at 10.2/34.0. Recently has been 10.4-11.2/34.5-37.5. Other labs pending ABG demonstrated normal pH at 7.39 and PCO2 at 43. PO2 is somewhat low at 66. Base excess in the normal range at 0.8. Bicarb normal range at 26.0. Recorded was that this was on 3 L but I believe he may have been on a higher rate than this. He adds additional history that his blood pressures have been low for a year commonly in the 90s systolic. 2:32 PM - chest x-ray results: "Mild CHF. Moderate patchy airspace disease in both mid and lower lungs likely indicate superimposed infection or aspiration rather than atypical edema. Please correlate with other clinical parameters for CHF." Also on labs results: troponin less than 0.01. Digoxin within normal at 0.4. Repeat troponin was unremarkable. 3:33 PM - I spoke with Dr. Mckinney, hospitalist, who reviewed with me normal lactic acid and with also an unremarkable pro calcitonin therefore most likely is a CHF rather than true pneumonia. Presumptive diagnosis of patient having a cardiomyopathy and that he has the ICD placed with his pacemaker, etc. Patient will be admitted to his care. Of note is that patient's blood pressure significantly improved with a small amount of IV fluids, into his normal range of 95-100 some of them running 100- 110 range. Lab Data Result diagrams: 08/14/20 12:54 08/14/20 12:54 Labs: Lab Results 08/14/20 08/14/20 08/14/20 Range/Units 12:54 12:54 12:54 WBC 8.1 (4.50-11.00) K/mcL RBC 4.22 L (4.63-6.08) M/mcL Hgb 10.2 L (13.7-17.5) g/dL Hct 34.0 L (40.1-51.0) % MCV 80.6 (80.0-100.0) fL MCH 24.2 L (26.0-34.0) pg MCHC 30.0 L (31.0-36.0) g/dL RDW 15.9 H (11.5-14.5) % Plt Count 213 (140-440) K/mcL MPV 11.2 H (7.4-10.4) fL Gran % 78.3 H (38.0-78.0) % Lymph % (Auto) 13.5 L (15.5-49.0) % [place] % (Auto) 6.4 (1.0-12.0) % Eos % (Auto) 1.2 (0.0-7.0) % Baso % (Auto) 0.6 (0.0-2.0) % Gran # 6.35 (1.80-8.00) K/mcL Lymph # (Auto) 1.10 L (1.50-4.80) K/mcL [place] # (Auto) 0.52 (0.10-0.90) K/mcL Eos # (Auto) 0.10 (0.00-0.70) K/mcL Baso # (Auto) 0.05 (0.00-0.30) K/mcL VBG Lactic Acid (0.5-2.0) mmol/L Sodium 141 (133-145) mmol/L Potassium 4.9 (3.3-5.1) mmol/L Chloride 102 (96-108) mmol/L Carbon Dioxide 25 (22-30) mmol/L Anion Gap 14.0 (8-16) BUN 27 H (8-23) mg/dl Creatinine 1.7 H (0.7-1.2) mg/dl GFR Calculation 37 Glucose 110 H (70-105) mg/dL Calcium 9.2 (8.6-10.4) mg/dl Total Bilirubin 1.2 H (0.0-1.0) mg/dL AST 10 (0-37) U/l ALT 7 (0-40) U/l Alkaline Phosphatase 83 (39-117) U/L Troponin T (0-0.03) ng/ml NT-Pro-B Natriuret Pep 2223.0 H (0-450) pg/ml Total Protein 6.8 (5.9-8.4) gm/dL Albumin 4.0 (3.2-5.2) gm/dL Globulin 2.8 (2.2-3.7) gm/dL Albumin/Globulin Ratio 1.4 (1.0-2.3) Procalcitonin (<0.10) ng/mL Digoxin 0.4 ng/mL Digoxin Dose Not Reportable Digox Last Dose Time Not Reportable 08/14/20 08/14/20 08/14/20 Range/Units 12:54 12:54 13:04 WBC (4.50-11.00) K/mcL RBC (4.63-6.08) M/mcL Hgb (13.7-17.5) g/dL Hct (40.1-51.0) % MCV (80.0-100.0) fL MCH (26.0-34.0) pg MCHC (31.0-36.0) g/dL RDW (11.5-14.5) % Plt Count (140-440) K/mcL MPV (7.4-10.4) fL Gran % (38.0-78.0) % Lymph % (Auto) (15.5-49.0) % [place] % (Auto) (1.0-12.0) % Eos % (Auto) (0.0-7.0) % Baso % (Auto) (0.0-2.0) % Gran # (1.80-8.00) K/mcL Lymph # (Auto) (1.50-4.80) K/mcL [place] # (Auto) (0.10-0.90) K/mcL Eos # (Auto) (0.00-0.70) K/mcL Baso # (Auto) (0.00-0.30) K/mcL VBG Lactic Acid 1.1 (0.5-2.0) mmol/L Sodium (133-145) mmol/L Potassium (3.3-5.1) mmol/L Chloride (96-108) mmol/L Carbon Dioxide (22-30) mmol/L Anion Gap (8-16) BUN (8-23) mg/dl Creatinine (0.7-1.2) mg/dl GFR Calculation Glucose (70-105) mg/dL Calcium (8.6-10.4) mg/dl Total Bilirubin (0.0-1.0) mg/dL AST (0-37) U/l ALT (0-40) U/l Alkaline Phosphatase (39-117) U/L Troponin T < 0.01 (0-0.03) ng/ml NT-Pro-B Natriuret Pep (0-450) pg/ml Total Protein (5.9-8.4) gm/dL Albumin (3.2-5.2) gm/dL Globulin (2.2-3.7) gm/dL Albumin/Globulin Ratio (1.0-2.3) Procalcitonin 0.04 (<0.10) ng/mL Digoxin ng/mL Digoxin Dose Digox Last Dose Time 08/14/20 Range/Units 15:27 WBC (4.50-11.00) K/mcL RBC (4.63-6.08) M/mcL Hgb (13.7-17.5) g/dL Hct (40.1-51.0) % MCV (80.0-100.0) fL MCH (26.0-34.0) pg MCHC (31.0-36.0) g/dL RDW (11.5-14.5) % Plt Count (140-440) K/mcL MPV (7.4-10.4) fL Gran % (38.0-78.0) % Lymph % (Auto) (15.5-49.0) % [place] % (Auto) (1.0-12.0) % Eos % (Auto) (0.0-7.0) % Baso % (Auto) (0.0-2.0) % Gran # (1.80-8.00) K/mcL Lymph # (Auto) (1.50-4.80) K/mcL [place] # (Auto) (0.10-0.90) K/mcL Eos # (Auto) (0.00-0.70) K/mcL Baso # (Auto) (0.00-0.30) K/mcL VBG Lactic Acid (0.5-2.0) mmol/L Sodium (133-145) mmol/L Potassium (3.3-5.1) mmol/L Chloride (96-108) mmol/L Carbon Dioxide (22-30) mmol/L Anion Gap (8-16) BUN (8-23) mg/dl Creatinine (0.7-1.2) mg/dl GFR Calculation Glucose (70-105) mg/dL Calcium (8.6-10.4) mg/dl Total Bilirubin (0.0-1.0) mg/dL AST (0-37) U/l ALT (0-40) U/l Alkaline Phosphatase (39-117) U/L Troponin T < 0.01 (0-0.03) ng/ml NT-Pro-B Natriuret Pep (0-450) pg/ml Total Protein (5.9-8.4) gm/dL Albumin (3.2-5.2) gm/dL Globulin (2.2-3.7) gm/dL Albumin/Globulin Ratio (1.0-2.3) Procalcitonin (<0.10) ng/mL Digoxin ng/mL Digoxin Dose Digox Last Dose Time Discharge Plan Patient/Caregiver Discharge Instructions Pt seen by SURVEY RESEARCHER/PA only: No Clinical Impression: CHF exacerbation, Hypotension, Anemia, Hypoxia Prescriptions: No Action tamsulosin 0.4 mg capsule 0.4 mg PO QDAY Qty: 30 RF: 3 clotrimazole 1 % cream 1 applic TOPICAL BID PRN (Reason: Rash) RF: 0 metoprolol succinate 50 mg capsule,sprinkle,ER 24hr 50 mg PO QDAY Qty: 30 RF: 0 furosemide 20 mg tablet See Rx Instructions .ROUTE .COMPLEX RF: 0 ferrous sulfate 325 mg (65 mg iron) tablet 325 mg PO QDAY Qty: 90 RF: 1 verapamil 120 mg capsule,ext rel. pellets 24 hr 120 mg PO QAM Qty: 90 RF: 0 potassium chloride 10 mEq tablet extended release 10 meq PO .qod Qty: 60 RF: 0 atorvastatin 10 mg tablet 10 mg PO HS RF: 0 digoxin 125 mcg tablet 62.5 mcg PO QDAY RF: 0 ipratropium-albuterol 0.5 mg-3 mg(2.5 mg base)/3 mL solution for nebulization 3 ml INHALATION QIDP PRN (Reason: Shortness Of Breath) RF: 0 budesonide 0.5 mg/2 mL suspension for nebulization 0.5 mg INHALATION BID PRN (Reason: Wheezing) RF: 0 hydrocodone-acetaminophen 10-325 mg tablet 1 tab PO BID PRN (Reason: Pain) RF: 0 Anoro Ellipta (Umeclidinium/Vilanterol) 62.5 MCG/INH Aero.Powd 1 puff INH DAILY RF: 0 warfarin 7.5 MG tablet 7.5 mg PO FR RF: 0 warfarin 5 MG tablet 5 mg PO SUMOTUWETHSA RF: 0
[2020-08-14 13:08] LABS: Basophils # (Auto) 0.05 K/mcL (0.00-0.30); Basophils % (Auto) 0.6 % (0.0-2.0); Eosinophils % (Auto) 1.2 % (0.0-7.0); Granulocytes % (Auto) 78.3 % (38.0-78.0); Hemoglobin 10.2 g/dL (13.7-17.5); Lymphocytes % (Auto) 13.5 % (15.5-49.0); Mean Cell Volume 80.6 fL (80.0-100.0); Mean Platelet Volume 11.2 fL (7.4-10.4); Monocytes # (Auto) 0.52 K/mcL (0.10-0.90); Monocytes % (Auto) 6.4 % (1.0-12.0); Platelet Count 213 K/mcL (140-440); RBC 4.22 M/mcL (4.63-6.08); Red Cell Distribution Width 15.9 % (11.5-14.5); WBC 8.1 K/mcL (4.50-11.00)
[2020-08-14 13:34] LABS: ALT/SGPT 7 U/l (0-40); AST/SGOT 10 U/l (0-37); Albumin/Globulin Ratio 1.4 (1.0-2.3); Alkaline Phosphatase 83 U/L (39-117); Bilirubin,Total 1.2 mg/dL (0.0-1.0); Blood Urea Nitrogen 27 mg/dl (8-23); Calcium 9.2 mg/dl (8.6-10.4); Carbon Dioxide 25 mmol/L (22-30); Chloride 102 mmol/L (96-108); Globulin 2.8 gm/dL (2.2-3.7); Glomerular Filtration Rate 37; Glucose 110 mg/dL (70-105)
[2020-08-14 13:44] LABS: Digoxin 0.4 ng/mL
--- NOTE | 2020-08-14 14:07 | XRay Report ---
CLINICAL INFORMATION: short of breath, hypoxia, hypotens COMPARISON: 12/17/2019 FINDINGS: The heart is mildly enlarged - increase. Implantable cardioverter defibrillator is in stable satisfactory position. Mediastinum is normal. The pulmonary vessels are mildly distended. There is moderate mixed interstitial/alveolar airspace disease in the mid and lower lungs. Small right pleural effusion noted. IMPRESSION: Mild CHF. Moderate patchy airspace disease in both mid and lower lungs likely indicate superimposed infection or aspiration rather than atypical edema. Please correlate with other clinical parameters for CHF Interpreted and Authenticated by: Shoaib Hobson 08/14/20
[2020-08-14] MEDS ORDERED: IPRATROPIUM/ALBUTEROL 3 ML AMPUL.NEB NEB PRN ×3 (16:01→20:37)
[2020-08-14] MEDS ORDERED: ONDANSETRON 4 MG/2 ML VIAL IV PRN ×2 (16:01→16:57)
[2020-08-14] MEDS ORDERED: DEXTROSE 31 GM ORAL.SUSP PO PRN ×2 (16:09→16:57)
[2020-08-14] MEDS ORDERED: DEXTROSE 50% 50 ML VIAL IV PRN ×2 (16:09→16:57)
[2020-08-14] MEDS ORDERED: PIPERACILLIN SODIUM/TAZOBACTAM 2.25 GM in DEXTROSE 5% IN WATER 50 ML IV SCH (16:15)
[2020-08-14] MEDS ORDERED: INSULIN LISPRO 1 UNIT/0.01 ML UNIT SQ SCH (17:00)
[2020-08-14 18:03] LABS: Hemoglobin A1C 5.9 % HGB (4.0-6.0)
[2020-08-14] MEDS: INSULIN LISPRO 1 UNIT/0.01 ML UNIT SQ SCH ×2 (18:09→21:20)
[2020-08-14] MEDS: PIPERACILLIN SODIUM/TAZOBACTAM 2.25 GM in DEXTROSE 5% IN WATER 50 ML IV SCH (18:10)
--- NOTE | 2020-08-14 20:19 | Internal Med History&Physical ---
HPI History of Present Illness Patient information: Note initiated : 08/14/20 at 8:15 pm Service Date, if different from initiated Date: [] Patient: Zachery Ordoñez a 84 y/o M admitted on 08/14/20 for Shortness of breath. Chief Complaint: [] History of present illness: Mr. Ordoñez is a 84 year old M with a history of CHF, atrial fibrillation on warfarin, COPD, CKD stage III, and diabetes type 2 who presented to the ER due to worsening shortness of breath. As per patient, patient has been having shortness breath for 1month. She is on home oxygen 2 L. In the ER, she was found to have no hypotension, 80s, which was improved after the 500 cc bolus was given. Chest x-ray showed "patchy airspace disease in both mid and lower lungs likely indicate superimposed infection or aspiration rather than atypical edema". But patient is afebrile and does not have leukocytosis. Procalcitonin 0.04. Lactic acid 1.1. BNP 2223. When I saw this patient in the ER, other than the symptoms mentioned above, she denied headache, dizziness, chest pain, abdominal pain, or dysuria. Review of Systems All systems: reviewed and no additional remarkable complaints except as stated PFSH PFSH All Active Problems DNR (do not resuscitate) (Chronic) CHF exacerbation (Acute) Hypotension (Acute) Anemia (Acute) Hypoxia (Acute) History of urinary retention (Acute) Hypotension (Acute) Acute kidney injury superimposed on chronic kidney disease (Acute) Atrial fibrillation (Chronic) Diabetes mellitus (Chronic 2008) Paroxysmal atrial fibrillation (Chronic 12/04/16) Chronic atrial fibrillation (Chronic 06/24/19) Congestive heart failure (Chronic 11/26/17) Essential hypertension (Chronic 1999) 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, moderately decreased glomerular filtration rate (GFR) between 30-44 mL/min/1.73 square meter and albuminuria creatinine ratio less than 30 mg/g (Chronic) Coffee ground emesis (Acute) COPD (chronic obstructive pulmonary disease) (Chronic) Anemia (Chronic) Chronic renal failure, stage 2 (mild) (Acute) GERD (gastroesophageal reflux disease) (Chronic 05/05/18) Bacterial cystitis (Acute) Elevated INR (international normalized ratio) (Acute) RBC microcytosis (Acute) History of tobacco use (Chronic 05/05/18) History of cardiac arrest (Chronic 12/04/16) Memory impairment (Chronic 03/20/17) Lumbar radiculopathy (Chronic 12/11/17) Chronic low back pain (Chronic 05/05/18) Spinal stenosis of lumbar region (Chronic 01/14/18) 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) Osteoarthritis (Chronic 02/18/17) Erectile dysfunction (Chronic 01/07/18) Abdominal aortic aneurysm without rupture (Chronic 04/21/17) Left carotid artery stenosis (Chronic 2011) Obesity (Chronic 05/05/18) Hypercholesterolemia (Chronic 12/04/16) UTI (urinary tract infection) (Chronic) Medical History Abdominal aortic aneurysm without rupture (Chronic 04/21/17) Acute exacerbation of chronic obstructive airways disease (Resolved 08/12/18) Acute retention of urine (Resolved) Anemia (Chronic) Atrial fibrillation (Chronic) Bacterial cystitis (Acute) 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) Chronic atrial fibrillation (Chronic 06/24/19) Chronic kidney disease (CKD) stage G3b/A1, moderately decreased glomerular filtration rate (GFR) between 30-44 mL/min/1.73 square meter and albuminuria creatinine ratio less than 30 mg/g (Chronic) Chronic low back pain (Chronic 05/05/18) Chronic renal failure, stage 2 (mild) (Acute) Coffee ground emesis (Acute) Congestive heart failure (Chronic 11/26/17) and 07/05/2018 Constipation (Resolved) Constipation (Resolved) COPD (chronic obstructive pulmonary disease) (Chronic) 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) Diabetes mellitus (Chronic 2008) DNR (do not resuscitate) (Chronic) Per discussion with patient, 08/14/2020 Elevated INR (international normalized ratio) (Acute) Erectile dysfunction (Chronic 01/07/18) Essential hypertension (Chronic 1999) GERD (gastroesophageal reflux disease) (Chronic 05/05/18) resolved History of cardiac arrest (Chronic 12/04/16) History of tobacco use (Chronic 05/05/18) Hypercholesterolemia (Chronic 12/04/16) Hypoxia (Resolved) Left carotid artery stenosis (Chronic 2011) Low blood pressure, not hypotension (Resolved) Lumbar radiculopathy (Chronic 12/11/17) Memory impairment (Chronic 03/20/17) Obesity (Chronic 05/05/18) Osteoarthritis (Chronic 02/18/17) Paroxysmal atrial fibrillation (Chronic 12/04/16) Pneumonia (Resolved) Pneumonia (Resolved 03/15/19) RBC microcytosis (Acute) Spinal stenosis of lumbar region (Chronic 01/14/18) Urinary retention (Resolved) started tamsulosin 08/2019 UTI (urinary tract infection) (Chronic) UTI (urinary tract infection) (Resolved) Surgical History History of back surgery (Chronic 11/23/12) History of cataract surgery (Chronic) History of cholecystectomy (Chronic 11/23/99) History of endarterectomy (Chronic 11/23/11) History of heart surgery (Chronic 11/23/08) X 2, 11/23/02 ICD Placement, 11/23/08 Generator Change History of shoulder surgery (Chronic 11/23/79) Bilateral History of spinal fusion (Chronic 11/23/1959) Family History Family/Other Substance abuse Child Social History marital status: life partner education level: high school service: Yes (was in [employer] in the 50s) branch: [employer] occupational status: retired sexually active: No physical activity: none smoking status: Former smoker alcohol intake frequency: does not drink substance use type: does not use seatbelt use: always working smoke detector in home: Yes firearms in home: Yes MEDS/ALLERGIES Home Medications and Allergies Home Medications Medication Instructions Recorded Confirmed Type atorvastatin 10 mg tablet 10 mg PO HS 05/10/18 08/14/20 History digoxin 125 mcg (0.125 mg) tablet 62.5 mcg PO QDAY 05/10/18 08/14/20 History ipratropium 0.5 mg-albuterol 3 mg 3 ml INHALATION QIDP PRN 05/10/18 08/14/20 History (2.5 mg base)/3 mL nebulization soln warfarin 5 mg PO SUTUWETHSA 02/08/19 08/14/20 History clotrimazole 1 % topical cream 1 applic TOPICAL BID PRN 08/18/19 08/14/20 History tamsulosin 0.4 mg capsule 0.4 mg PO QDAY #30 cap 08/25/19 08/14/20 Rx hydrocodone 10 mg-acetaminophen 1 tab PO TID tab 12/16/19 08/14/20 History 325 mg tablet metoprolol succinate 50 mg capsule 50 mg PO QDAY #30 each 12/16/19 08/14/20 Rx sprinkle, ext. release 24 hr ferrous sulfate 325 mg (65 mg 325 mg PO QDAY #90 tab 05/30/20 08/14/20 Rx iron) tablet potassium chloride 10 mEq 10 meq PO .qod #60 tab 05/30/20 08/14/20 Rx tablet,extended release albuterol sulfate 2 puff INHALATION Q4H PRN 08/14/20 08/14/20 History metformin 500 mg PO BID 08/14/20 08/14/20 History tiotropium-olodaterol [Stiolto 2 puff INHALATION Q24H 08/14/20 08/14/20 History Respimat] verapamil 240 mg PO QAM 08/14/20 08/14/20 History warfarin 2.5 mg PO MOFR 08/14/20 08/14/20 History Allergies Allergy/AdvReac Type Severity Reaction Status Date / Time morphine Allergy Intermediate Other Verified 08/14/20 12:18 doxycycline Allergy Unknown Unknown Verified 08/14/20 12:18 EXAM Constitutional Vitals: Temp Pulse Resp BP Pulse Ox 98.6 F 59 L 20 109/73 93 08/14/20 17:00 08/14/20 16:46 08/14/20 18:00 08/14/20 18:00 08/14/20 18:00 Additional findings Additional findings: General - No acute distress Eyes - PERRLA, EOM intact ENT no rhinorrhea, no noticeable or palpable swelling, no redness or rash around throat or on face Neck supple, no JVD, no thyromegaly Respiratory: Lungs - diminshed BS, no use of accessary muscles. Cardiovascular - RRR no m/r/g, GI - Normal bowel sounds, no distended, soft. Extremeties - No edema, cyanosis or clubbing Hemo/lymphatic/immune no lymphadenopathy Neurological Alert and oriented x 3, no focal neurological deficits. Psychiatry flat affect DATA Data Completed and Pending Labs: Labs from last 24 hours 08/14/20 08/14/20 08/14/20 15:27 13:04 12:54 WBC RBC Hgb Hct MCV MCH MCHC RDW Plt Count MPV Gran % Lymph % (Auto) [place] % (Auto) Eos % (Auto) Baso % (Auto) Gran # Lymph # (Auto) [place] # (Auto) Eos # (Auto) Baso # (Auto) VBG Lactic Acid 1.1 Sodium Potassium Chloride Carbon Dioxide Anion Gap BUN Creatinine GFR Calculation Glucose Hemoglobin A1c 5.9 Estim Average Glucose 123 Calcium Total Bilirubin AST ALT Alkaline Phosphatase Troponin T < 0.01 NT-Pro-B Natriuret Pep Total Protein Albumin Globulin Albumin/Globulin Ratio Procalcitonin Digoxin Digoxin Dose Digox Last Dose Time 08/14/20 08/14/20 08/14/20 12:54 12:54 12:54 WBC RBC Hgb Hct MCV MCH MCHC RDW Plt Count MPV Gran % Lymph % (Auto) [place] % (Auto) Eos % (Auto) Baso % (Auto) Gran # Lymph # (Auto) [place] # (Auto) Eos # (Auto) Baso # (Auto) VBG Lactic Acid Sodium 141 Potassium 4.9 Chloride 102 Carbon Dioxide 25 Anion Gap 14.0 BUN 27 H Creatinine 1.7 H GFR Calculation 37 Glucose 110 H Hemoglobin A1c Estim Average Glucose Calcium 9.2 Total Bilirubin 1.2 H AST 10 ALT 7 Alkaline Phosphatase 83 Troponin T < 0.01 NT-Pro-B Natriuret Pep 2223.0 H Total Protein 6.8 Albumin 4.0 Globulin 2.8 Albumin/Globulin Ratio 1.4 Procalcitonin 0.04 Digoxin Digoxin Dose Digox Last Dose Time 08/14/20 08/14/20 12:54 12:54 WBC 8.1 RBC 4.22 L Hgb 10.2 L Hct 34.0 L MCV 80.6 MCH 24.2 L MCHC 30.0 L RDW 15.9 H Plt Count 213 MPV 11.2 H Gran % 78.3 H Lymph % (Auto) 13.5 L [place] % (Auto) 6.4 Eos % (Auto) 1.2 Baso % (Auto) 0.6 Gran # 6.35 Lymph # (Auto) 1.10 L [place] # (Auto) 0.52 Eos # (Auto) 0.10 Baso # (Auto) 0.05 VBG Lactic Acid Sodium Potassium Chloride Carbon Dioxide Anion Gap BUN Creatinine GFR Calculation Glucose Hemoglobin A1c Estim Average Glucose Calcium Total Bilirubin AST ALT Alkaline Phosphatase Troponin T NT-Pro-B Natriuret Pep Total Protein Albumin Globulin Albumin/Globulin Ratio Procalcitonin Digoxin 0.4 Digoxin Dose Not Reportable Digox Last Dose Time Not Reportable A/P Narrative A/P Narrative: 1. CHF exacerbation Unknown type BNP 2223 Patient has been on digoxin, blood digoxin level 0.4 Intake and output Daily weight Continue digoxin 62.5 MCG daily Echocardiogram Lasix as blood pressure tolerated 2. Pneumonia, b/l, aspiration, CAP, viral? COVID-19 negative Respiratory panel MRSA screening Zosyn Speech pathologist consult 3. Hypotension 500 cc normal saline bolus was given in the ER Usual systolic blood pressure 90s Decrease in the metoprolol to 25 mg daily from 50 mg daily Did not order Lasix Monitor blood pressure, make sure MAP greater than 65 4. Atrial fibrillation on warfarin Rate is controlled Home medication include metoprolol 50 mg daily. I will decrease metoprolol to 25 mg daily Verapamil 240 mg daily is on hold due to CHF Continue digoxin 62.5 MCG daily 5. COPD Presumed stable Inhalers 6. CKD stage 3 Avoid nephrotoxic meds Intake and output Repeat renal function in the morning 7. DM type 2 Diabetic diet Metformin is on hold Insulin sliding scale 8. DVT prophylaxis: Heparin 9. CODE STATUS: CPR is fine no intubation. Time Spent With Patient Time: Total time spent is greater than 50% in coordination of care (as documented) at patient's floor/unit and/or counseling patient:
[2020-08-14] MEDS ORDERED: ALBUTEROL SULFATE 200 PUFF INHALER INH PRN (20:37)
[2020-08-14] MEDS ORDERED: WARFARIN 5 MG TABLET PO SCH (20:45)
[2020-08-14] MEDS ORDERED: TIOTROPIUM OLODATEROL INHALATION SCH (20:45)
[2020-08-14] MEDS ORDERED: HEPARIN 5,000 UNIT/ML VIAL SQ SCH (21:00)
[2020-08-14] MEDS ORDERED: ATORVASTATIN 10 MG TABLET PO SCH (21:00)
[2020-08-14] MEDS ORDERED: DOCUSATE SODIUM 100 MG CAPSULE PO SCH (21:00)
[2020-08-14] MEDS ORDERED: METOPROLOL SUCCINATE 50 MG TAB.XL.24H PO SCH ×3 (21:00)
[2020-08-14] MEDS: DOCUSATE SODIUM 100 MG CAPSULE PO SCH (21:12)
[2020-08-14] MEDS: 0.9 % SODIUM CHLORIDE 10 ML SYRINGE IV SCH (21:20)
[2020-08-14] MEDS: HEPARIN 5,000 UNIT/ML VIAL SQ SCH (21:46)
[2020-08-14] MEDS: HYDROcodone/APAP 10/325MG TABLET PO SCH (21:47)
[2020-08-14] MEDS ORDERED: 0.9 % SODIUM CHLORIDE 10 ML SYRINGE IV SCH (22:00)
[2020-08-14 23:45] LABS: Appearance,Urine HAZY; Bacteria,Urine 0 /hpf (0); Bilirubin,Urine NEG (NEG); Color,Urine YELLOW; Culture Indicated,Urine YES; Glucose,Urine (UA) NEGATIVE (NEG); Ketones,Urine NEG (NEG); Leukocyte Esterase,Urine 500 /uL (NEG); Nitrate,Urine NEG (NEG); Protein,Urine NEG (NEG); Specific Gravity,Urine 1.014 (1.000-1.035); Urine Blood NEG mg/dL (<0.03); Urine RBC 1 /hpf (0-1); Urine Squamous Epithelial Cell < 1 /hpf (0-4); Urine WBC > 182 /hpf (0-4); Urobilinogen,Urine NEG (NEG)
[2020-08-15] MEDS: PIPERACILLIN SODIUM/TAZOBACTAM 2.25 GM in DEXTROSE 5% IN WATER 50 ML IV SCH ×5 (00:10→23:29)
[2020-08-15] MEDS: 0.9 % SODIUM CHLORIDE 10 ML SYRINGE IV SCH ×3 (05:16→21:28)
[2020-08-15 06:58] LABS: INR 1.6 (0.9-1.1); Prothrombin Time 19.5 sec (11.9-14.5)
[2020-08-15 07:53] LABS: Phosphorous 3.9 mg/dL (2.7-4.5)
[2020-08-15] MEDS: INSULIN LISPRO 1 UNIT/0.01 ML UNIT SQ SCH ×4 (08:22→21:13)
[2020-08-15] MEDS ORDERED: TAMSULOSIN 0.4 MG CAPSULE PO SCH (09:00)
[2020-08-15] MEDS ORDERED: FERROUS SULFATE 325 MG TABLET PO SCH (09:00)
[2020-08-15] MEDS ORDERED: TIOTROPIUM OLODATEROL INH SCH (09:00)
[2020-08-15 09:58] LABS: Basophils # (Auto) 0.05 K/mcL (0.00-0.30); Basophils % (Auto) 0.8 % (0.0-2.0); Eosinophils # (Auto) 0.14 K/mcL (0.00-0.70); Eosinophils % (Auto) 2.2 % (0.0-7.0); Granulocytes % (Auto) 74.6 % (38.0-78.0); Hematocrit 33.9 % (40.1-51.0); Hemoglobin 10.2 g/dL (13.7-17.5); Lymphocytes # (Auto) 0.95 K/mcL (1.50-4.80); Lymphocytes % (Auto) 14.9 % (15.5-49.0); Mean Cell Volume 80.5 fL (80.0-100.0); Mean Corpuscular HGB Conc 30.1 g/dL (31.0-36.0); Mean Platelet Volume 10.7 fL (7.4-10.4); Monocytes # (Auto) 0.48 K/mcL (0.10-0.90); Monocytes % (Auto) 7.5 % (1.0-12.0); Platelet Count 183 K/mcL (140-440); RBC 4.21 M/mcL (4.63-6.08); Red Cell Distribution Width 15.9 % (11.5-14.5); WBC 6.4 K/mcL (4.50-11.00)
[2020-08-15] MEDS: HYDROcodone/APAP 10/325MG TABLET PO SCH ×3 (10:28→21:09)
[2020-08-15] MEDS: HEPARIN 5,000 UNIT/ML VIAL SQ SCH ×2 (10:28→21:12)
[2020-08-15] MEDS: DOCUSATE SODIUM 100 MG CAPSULE PO SCH ×2 (10:29→21:12)
[2020-08-15 10:35] LABS: ALT/SGPT 7 U/l (0-40); AST/SGOT 11 U/l (0-37); Albumin 3.6 gm/dL (3.2-5.2); Albumin/Globulin Ratio 1.3 (1.0-2.3); Alkaline Phosphatase 80 U/L (39-117); Bilirubin,Direct 0.2 mg/dL (0.0-0.3); Blood Urea Nitrogen 25 mg/dl (8-23); Calcium 9.2 mg/dl (8.6-10.4); Carbon Dioxide 25 mmol/L (22-30); Chloride 105 mmol/L (96-108); Globulin 2.8 gm/dL (2.2-3.7); Glomerular Filtration Rate 37; Glucose 99 mg/dL (70-105); Lactate Dehydrogenase 170 U/L (94-250); Phosphorous 4.1 mg/dL (2.7-4.5); Triglycerides 91 mg/dl (<150); Uric Acid 6.8 mg/dL (2.5-8.0)
[2020-08-15] MEDS ORDERED: DEXTROSE 31 GM ORAL.SUSP PO PRN (11:28)
[2020-08-15] MEDS ORDERED: ONDANSETRON 4 MG/2 ML VIAL IV PRN (11:28)
[2020-08-15] MEDS ORDERED: ALBUTEROL SULFATE 200 PUFF INHALER INH PRN (11:28)
[2020-08-15] MEDS ORDERED: IPRATROPIUM/ALBUTEROL 3 ML AMPUL.NEB NEB PRN ×2 (11:28)
[2020-08-15] MEDS ORDERED: DEXTROSE 50% 50 ML VIAL IV PRN (11:28)
[2020-08-15] MEDS ORDERED: FUROSEMIDE 20 MG/2 ML VIAL IV ONE (13:45)
--- NOTE | 2020-08-15 13:45 | Internal Med Progress Note ---
SUBJECTIVE Subjective Patient information: Note initiated : 08/15/20 at 1:42 pm Service Date, if different from initiated Date: [] Patient: Zachery Ordoñez 84 y/o M admitted on 08/14/20 for Shortness of breath. Chief Complaint: [] Mr. Ordoñez is a 84 year old M with a history of CHF, atrial fibrillation on warfarin, COPD, CKD stage III, and diabetes type 2 who presented to the ER due to worsening shortness of breath. As per patient, patient has been having shortness breath for 1month. She is on home oxygen 2 L. In the ER, she was found to have no hypotension, 80s, which was improved after the 500 cc bolus was given. Chest x-ray showed "patchy airspace disease in both mid and lower lungs likely indicate superimposed infection or aspiration rather than atypical edema". But patient is afebrile and does not have leukocytosis. Procalcitonin 0.04. Lactic acid 1.1. BNP 2223. When I saw this patient in the ER, other than the symptoms mentioned above, she denied headache, dizziness, chest pain, abdominal pain, or dysuria. 08/15 Pt feels ok. no new complaints. BP 97/47 when I saw him. I will order lasix 20 mg iv once for him today. Review of Systems All systems: reviewed and no additional remarkable complaints except as stated Constitutional Vitals: Vital Signs Temp Pulse Resp BP Pulse Ox 97.3 F 57 L 15 119/58 83 L 08/15/20 12:01 08/15/20 12:01 08/15/20 12:01 08/15/20 12:01 08/15/20 12:01 Period Temp Pulse Resp BP Sys/Montano Pulse Ox Last 24 Hr 97.3 F-98.6 F 56-66 12-25 84-119/44-76 83-100 Intake and Output 08/14/20 08/15/20 08/15/20 21:59 05:59 13:59 Intake Total 230 460 240 Output Total 225 975 300 Balance 5 -515 -60 Weight 88.178 kg Intake & Output: Intake & Output 08/14/20 08/15/20 08/15/20 21:59 05:59 13:59 Intake Total 230 460 240 Output Total 225 975 300 Balance 5 -515 -60 Weight 88.178 kg Intake: IV 50 100 Zosyn 2.25 gm In Dextrose 5% in 50 100 Water 50 ml @ 100 mls/hr IV Q6H [facility] Rx#:[id number] Oral 180 360 240 Output: Void Amount 225 975 300 Other: Meal Dinner Breakfast Percent of Meal Consumed 100% 100% Feeding Ability Independent Independent Urine Appearance Clear Cloudy Cloudy Urine Color Bright Yellow Dark Yellow Pale Urine Odor Normal Additional findings Additional findings: General - No acute distress Eyes - PERRLA, EOM intact ENT no rhinorrhea, no noticeable or palpable swelling, no redness or rash arou nd throat or on face Neck supple, no JVD, no thyromegaly Respiratory: Lungs - diminshed BS, no use of accessary muscles. Cardiovascular - RRR no m/r/g, GI - Normal bowel sounds, no distended, soft. Extremeties - No cyanosis or clubbing. Pitting edema+ in both legs Hemo/lymphatic/immune no lymphadenopathy Neurological Alert and oriented x 3, no focal neurological deficits. Psychiatry flat affect OBJ DATA Labs CBC & Chem 7: 08/15/20 09:13 08/15/20 09:13 Labs: Abnormal Lab Results 08/15/20 08/15/20 08/15/20 09:13 09:13 04:52 RBC 4.21 L Hgb 10.2 L Hct 33.9 L MCH 24.2 L MCHC 30.1 L RDW 15.9 H MPV 10.7 H Gran % Lymph % (Auto) 14.9 L Lymph # (Auto) 0.95 L PT 19.5 H INR 1.6 H BUN 25 H Creatinine 1.7 H Glucose Total Bilirubin NT-Pro-B Natriuret Pep Ur Leukocyte Esterase Urine WBC 08/14/20 08/14/20 08/14/20 22:00 12:54 12:54 RBC 4.22 L Hgb 10.2 L Hct 34.0 L MCH 24.2 L MCHC 30.0 L RDW 15.9 H MPV 11.2 H Gran % 78.3 H Lymph % (Auto) 13.5 L Lymph # (Auto) 1.10 L PT INR BUN 27 H Creatinine 1.7 H Glucose 110 H Total Bilirubin 1.2 H NT-Pro-B Natriuret Pep 2223.0 H Ur Leukocyte Esterase 500 A Urine WBC > 182 H Meds: Medications Hydrocodone Bitart/Acetaminophen ([place] 10/325mg) 1 tab PO TID [facility]; Protocol Albuterol Sulfate (Ventolin) 2 puff INH Q4HP PRN PRN Reason: Shortness Of Breath Albuterol/Ipratropium (Duoneb) 3 ml NEB Q6HRT PRN PRN Reason: Shortness Of Breath Albuterol/Ipratropium (Duoneb) 3 ml NEB QIDP PRN PRN Reason: Shortness Of Breath Atorvastatin Calcium (Lipitor) 10 mg PO HS [facility] Dextrose (Dextrose 50%) 0 ml IV UD PRN PRN Reason: Hypoglycemia Diagnostic Test (Pha) (Accu-Chek) 1 each FS [facility] Last Admin: 08/15/20 11:38 Dose: 1 each Documented by: Digoxin (Lanoxin) 62.5 mcg PO DAILY@1400 [facility] Docusate Sodium (Colace) 100 mg PO BID [facility] Ferrous Sulfate (Ferrous Sulfate) 325 mg PO QDAY [facility] Glucose (Insta-Glucose) 15 gm PO PRN PRN PRN Reason: Hypoglycemia Heparin Sodium (Porcine) (Heparin) 5,000 unit SQ Q12 [facility] Piperacillin Sod/Tazobactam (Sod 2.25 gm/ Dextrose) 50 mls @ 100 mls/hr IV Q6H [facility]; Protocol Last Admin: 08/15/20 12:09 Dose: 100 mls/hr Documented by: Insulin Human Lispro (Humalog) 0 unit SQ [facility]; Protocol Last Admin: 08/15/20 11:38 Dose: Not Given Documented by: Metoprolol Succinate (Toprol Xl) 25 mg PO HS [facility] Ondansetron HCl (Zofran) 4 mg IV Q4HP PRN; Protocol PRN Reason: Nausea And Vomiting Tiotropium- Olodaterol [Stiolto Respimat] Inhaler 2 dose INH DAILY [facility] Sodium Chloride (Saline Flush) 10 ml IV Q8 [facility] Tamsulosin HCl (Flomax) 0.4 mg PO QDAY [facility] Warfarin Sodium (Coumadin) 5 mg PO ONCE@1500 ONE Stop: 08/15/20 15:01 Warfarin Sodium (Coumadin Per Pharmacy) 1 order PO UD [facility] A/P Narrative A/P Narrative: 1. CHF exacerbation Unknown type BNP 222 Patient has been on digoxin, blood digoxin level 0.4 Intake and output Daily weight Continue digoxin 62.5 MCG daily Echocardiogram Lasix as blood pressure tolerated 2. Pneumonia, b/l, aspiration, CAP, viral? COVID-19 negative Respiratory panel - negative MRSA screening - negative [facility] Speech pathologist consult 3. Hypotension 500 cc normal saline bolus was given in the ER Usual systolic blood pressure 90s Decrease in the metoprolol to 25 mg daily from 50 mg daily Did not order Lasix Monitor blood pressure, make sure MAP greater than 65 4. Atrial fibrillation on warfarin Rate is controlled Home medication include metoprolol 50 mg daily. I will decrease metoprolol to 25 mg daily Verapamil 240 mg daily is on hold due to CHF Continue digoxin 62.5 MCG daily 5. COPD Presumed stable Inhalers 6. CKD stage 3 Avoid nephrotoxic meds Intake and output Repeat renal function in the morning 7. DM type 2 Diabetic diet Metformin is on hold Insulin sliding scale 8. DVT prophylaxis: Heparin 9. CODE STATUS: CPR is fine no intubation. Time Spent With Patient Time: Total time spent is greater than 50% in coordination of care (as documented) at patient's floor/unit and/or counseling patient: QUALITY VTE Deep Vein Thrombosis/Pulmonary Embolism Present on Admission: No
[2020-08-15] MEDS ORDERED: DIGOXIN 125 MCG TABLET PO SCH ×2 (14:00)
[2020-08-15] MEDS ORDERED: WARFARIN 5 MG TABLET PO SCH (14:00)
--- NOTE | 2020-08-15 14:47 | Internal Med Progress Note ---
SUBJECTIVE Subjective Patient information: Note initiated : 08/15/20 at 2:45 pm Service Date, if different from initiated Date: [] Patient: Zachery Ordoñez a 84 y/o M admitted on 08/14/20 for Shortness of breath. Chief Complaint: [] Interval history: Mr. Ordoñez is a 84 year old M with a history of CHF, atrial fibrillation on warfarin, COPD, CKD stage III, and diabetes type 2 who presented to the ER due to worsening shortness of breath. As per patient, patient has been having shortness breath for 1month. She is on home oxygen 2 L. In the ER, she was found to have no hypotension, 80s, which was improved after the 500 cc bolus was given. Chest x-ray showed "patchy airspace disease in both mid and lower lungs likely indicate superimposed infection or aspiration rather than atypical edema". But patient is afebrile and does not have leukocytosis. Procalcitonin 0.04. Lactic acid 1.1. BNP 2223. When I saw this patient in the ER, other than the symptoms mentioned above, she denied headache, dizziness, chest pain, abdominal pain, or dysuria. 08/15 Pt feels ok. no new complaints. BP 97/47 when I saw him. I will order lasix 20 mg iv once for him today. 08/16 Constitutional Vitals: Vital Signs Temp Pulse Resp BP Pulse Ox 97.3 F 59 L 17 97/56 99 08/15/20 12:01 08/15/20 14:01 08/15/20 14:01 08/15/20 14:01 08/15/20 14:01 Period Temp Pulse Resp BP Sys/Montano Pulse Ox Last 24 Hr 97.3 F-98.6 F 56-66 12-25 84-119/44-76 83-99 Intake and Output 08/15/20 08/15/20 08/15/20 05:59 13:59 21:59 Intake Total 460 480 Output Total 975 500 Balance -515 -20 Intake & Output: Intake & Output 08/15/20 08/15/20 08/15/20 05:59 13:59 21:59 Intake Total 460 480 Output Total 975 500 Balance -515 -20 Intake: IV 100 Zosyn 2.25 gm In Dextrose 5% in 100 Water 50 ml @ 100 mls/hr IV Q6H [facility] Rx#:[id number] Oral 360 480 Output: Void Amount 975 500 Other: Meal Lunch Percent of Meal Consumed 100% Feeding Ability Independent Urine Appearance Cloudy Cloudy Urine Color Dark Yellow Pale Exam: General: Alert, Awake, No acute Distress Eyes/N/T: EOMI, Head/Neck: neck supple, CV: RRR, No murmurs, Pulm: diminished b/l, no wheezing Abd: soft, nontender, +BS x4 Ext: no clubbing/cyanosis, b/l LE edema Neuro: Alert, no focal deficits, moves all extremities, Skin: warm/dry OBJ DATA Labs CBC & Chem 7: 08/15/20 09:13 08/15/20 09:13 Labs: Abnormal Lab Results 08/15/20 08/15/20 08/15/20 09:13 09:13 04:52 RBC 4.21 L Hgb 10.2 L Hct 33.9 L MCH 24.2 L MCHC 30.1 L RDW 15.9 H MPV 10.7 H Gran % Lymph % (Auto) 14.9 L Lymph # (Auto) 0.95 L PT 19.5 H INR 1.6 H BUN 25 H Creatinine 1.7 H Glucose Total Bilirubin NT-Pro-B Natriuret Pep Ur Leukocyte Esterase Urine WBC 08/14/20 08/14/20 08/14/20 22:00 12:54 12:54 RBC 4.22 L Hgb 10.2 L Hct 34.0 L MCH 24.2 L MCHC 30.0 L RDW 15.9 H MPV 11.2 H Gran % 78.3 H Lymph % (Auto) 13.5 L Lymph # (Auto) 1.10 L PT INR BUN 27 H Creatinine 1.7 H Glucose 110 H Total Bilirubin 1.2 H NT-Pro-B Natriuret Pep 2223.0 H Ur Leukocyte Esterase 500 A Urine WBC > 182 H Meds: Medications Hydrocodone Bitart/Acetaminophen ([place] 10/325mg) 1 tab PO TID [facility]; Protocol Albuterol Sulfate (Ventolin) 2 puff INH Q4HP PRN PRN Reason: Shortness Of Breath Albuterol/Ipratropium (Duoneb) 3 ml NEB Q6HRT PRN PRN Reason: Shortness Of Breath Albuterol/Ipratropium (Duoneb) 3 ml NEB QIDP PRN PRN Reason: Shortness Of Breath Atorvastatin Calcium (Lipitor) 10 mg PO HS [facility] Dextrose (Dextrose 50%) 0 ml IV UD PRN PRN Reason: Hypoglycemia Diagnostic Test (Pha) (Accu-Chek) 1 each FS [facility] Last Admin: 08/15/20 11:38 Dose: 1 each Documented by: Digoxin (Lanoxin) 62.5 mcg PO DAILY@1400 [facility] Docusate Sodium (Colace) 100 mg PO BID [facility] Ferrous Sulfate (Ferrous Sulfate) 325 mg PO QDAY [facility] Glucose (Insta-Glucose) 15 gm PO PRN PRN PRN Reason: Hypoglycemia Heparin Sodium (Porcine) (Heparin) 5,000 unit SQ Q12 [facility] Piperacillin Sod/Tazobactam (Sod 2.25 gm/ Dextrose) 50 mls @ 100 mls/hr IV Q6H [facility]; Protocol Last Admin: 08/15/20 12:09 Dose: 100 mls/hr Documented by: Insulin Human Lispro (Humalog) 0 unit SQ [facility]; Protocol Last Admin: 08/15/20 11:38 Dose: Not Given Documented by: Metoprolol Succinate (Toprol Xl) 25 mg PO HS [facility] Ondansetron HCl (Zofran) 4 mg IV Q4HP PRN; Protocol PRN Reason: Nausea And Vomiting Tiotropium- Olodaterol [Stiolto Respimat] Inhaler 2 dose INH DAILY [facility] Sodium Chloride (Saline Flush) 10 ml IV Q8 [facility] Tamsulosin HCl (Flomax) 0.4 mg PO QDAY [facility] Warfarin Sodium (Coumadin) 5 mg PO ONCE@1500 ONE Stop: 08/15/20 15:01 Warfarin Sodium (Coumadin Per Pharmacy) 1 order PO UD [facility] A/P Narrative A/P Narrative: A: *Acute on chronic diastolic CHF: -on digoxin at home *PNA, b/l: -COVID-19/Respiratory panel/MRSA screening negative *Hypotension: 500 cc normal saline bolus was given in the ER -Usual systolic blood pressure 90s at home per pt *COPD (2L@home): *DM: *HTN: *Afib, persistent: home dig/bb/ccb, warfarin *Obesity: *h/o CMP with ACID/PPM: last echo with normal EF *CKD III: *Anemia, chronic: P: -IV lasix as BP allows -echo pending -cont dig, -cont BB, verapamil held d/t BP and pending echo -abx, SC -ST eval -Decrease metoprolol to 25 from 50, held lasix today -Monitor blood pressure, make sure MAP greater than 65 -cont home IH's -SSI, hold home metformin for now -pt/ot -ppx: warfarin per pharm code status: limited Time Spent With Patient Time: Total time spent is greater than 50% in coordination of care (as documented) at patient's floor/unit and/or counseling patient: QUALITY VTE Deep Vein Thrombosis/Pulmonary Embolism Present on Admission: No
[2020-08-15] MEDS ORDERED: WARFARIN 5 MG TABLET PO ONE (15:00)
[2020-08-15] MEDS ORDERED: ATORVASTATIN 10 MG TABLET PO SCH (21:00)
[2020-08-15] MEDS ORDERED: METOPROLOL SUCCINATE 50 MG TAB.XL.24H PO SCH (21:00)
[2020-08-16] MEDS: PIPERACILLIN SODIUM/TAZOBACTAM 2.25 GM in DEXTROSE 5% IN WATER 50 ML IV SCH (05:54)
[2020-08-16] MEDS: 0.9 % SODIUM CHLORIDE 10 ML SYRINGE IV SCH (05:54)
[2020-08-16 07:19] LABS: INR 1.7 (0.9-1.1)
--- NOTE | 2020-08-16 07:26 | Internal Med Progress Note ---
SUBJECTIVE Subjective Patient information: Note initiated : 08/16/20 at 7:22 am Service Date, if different from initiated Date: [] Patient: Zachery Ordoñez 84 y/o M admitted on 08/14/20 for Shortness of breath. Chief Complaint: [] Interval history: Mr. Ordoñez is a 84 year old M with a history of CHF, atrial fibrillation on warfarin, COPD, CKD stage III, and diabetes type 2 who presented to the ER due to worsening shortness of breath. As per patient, patient has been having shortness breath for 1month. She is on home oxygen 2 L. In the ER, she was found to have no hypotension, 80s, which was improved after the 500 cc bolus was given. Chest x-ray showed "patchy airspace disease in both mid and lower lungs likely indicate superimposed infection or aspiration rather than atypical edema". But patient is afebrile and does not have leukocytosis. Procalcitonin 0.04. Lactic acid 1.1. BNP 2223. When I saw this patient in the ER, other than the symptoms mentioned above, she denied headache, dizziness, chest pain, abdominal pain, or dysuria. 08/15 Pt feels ok. no new complaints. BP 97/47 when I saw him. I will order lasix 20 mg iv once for him today. 08/16 Doing better and feeling better. Blood pressure stable. No new complaints. B aseline cough and shortness of breath. No edema in his legs this morning. On home oxygen regimen. Review of Systems: denies headache/fever/chills/nausea/vomiting/chest or abdominal pain/cough/dyspnea/diarrhea. Otherwise see above. Constitutional Vitals: Vital Signs Temp Pulse Resp BP Pulse Ox 98.1 F 61 14 129/67 94 08/16/20 04:01 08/16/20 06:01 08/16/20 06:01 08/16/20 06:01 08/16/20 06:01 Period Temp Pulse Resp BP Sys/[place]ano Pulse Ox Last 24 Hr 97.3 F-98.7 F 53-61 14-18 80-129/45-69 83-99 Intake and Output 08/15/20 08/16/20 08/16/20 21:59 05:59 13:59 Intake Total 690 50 50 Output Total 1000 600 Balance -310 -550 50 Weight 88.723 kg Intake & Output: Intake & Output 08/15/20 08/16/20 08/16/20 21:59 05:59 13:59 Intake Total 690 50 50 Output Total 1000 600 Balance -310 -550 50 Weight 88.723 kg Intake: IV 50 50 50 Zosyn 2.25 gm In Dextrose 5% in 50 50 50 Water 50 ml @ 100 mls/hr IV Q6H FATUMA Rx#:[id number] Oral 640 Output: Void Amount 1000 600 Other: Meal Dinner Percent of Meal Consumed 100% Urine Appearance Clear Clear Urine Color Pale Bright Yellow Exam: General: Alert, Awake, No acute Distress Eyes/N/T: EOMI, Head/Neck: neck supple, CV: RRR(paced), No murmurs, Pulm: diminished b/l, no wheezing Abd: soft, nontender, +BS x4 Ext: no clubbing/cyanosis, b/l LE edema resolved Neuro: Alert, no focal deficits, moves all extremities, Skin: warm/dry OBJ DATA Labs CBC & Chem 7: 08/15/20 09:13 08/16/20 04:44 Labs: Abnormal Lab Results 08/16/20 08/15/20 08/15/20 04:44 09:13 09:13 RBC 4.21 L Hgb 10.2 L Hct 33.9 L MCH 24.2 L MCHC 30.1 L RDW 15.9 H MPV 10.7 H Gran % Lymph % (Auto) 14.9 L Lymph # (Auto) 0.95 L PT 20.0 H INR 1.7 H BUN 25 H Creatinine 1.7 H Glucose Total Bilirubin NT-Pro-B Natriuret Pep Ur Leukocyte Esterase Urine WBC 08/15/20 08/14/20 08/14/20 04:52 22:00 12:54 RBC Hgb Hct MCH MCHC RDW MPV Gran % Lymph % (Auto) Lymph # (Auto) PT 19.5 H INR 1.6 H BUN 27 H Creatinine 1.7 H Glucose 110 H Total Bilirubin 1.2 H NT-Pro-B Natriuret Pep 2223.0 H Ur Leukocyte Esterase 500 A Urine WBC > 182 H 08/14/20 12:54 RBC 4.22 L Hgb 10.2 L Hct 34.0 L MCH 24.2 L MCHC 30.0 L RDW 15.9 H MPV 11.2 H Gran % 78.3 H Lymph % (Auto) 13.5 L Lymph # (Auto) 1.10 L PT INR BUN Creatinine Glucose Total Bilirubin NT-Pro-B Natriuret Pep Ur Leukocyte Esterase Urine WBC Meds: Medications Hydrocodone Bitart/Acetaminophen ([place] 10/325mg) 1 tab PO TID [facility]; Protocol Last Admin: 08/15/20 21:09 Dose: 1 tab Documented by: Albuterol Sulfate (Ventolin) 2 puff INH Q4HP PRN PRN Reason: Shortness Of Breath Albuterol/Ipratropium (Duoneb) 3 ml NEB Q6HRT PRN PRN Reason: Shortness Of Breath Albuterol/Ipratropium (Duoneb) 3 ml NEB QIDP PRN PRN Reason: Shortness Of Breath Atorvastatin Calcium (Lipitor) [address] [facility] Last Admin: 08/15/20 21:13 Dose: 10 mg Documented by: Dextrose (Dextrose 50%) 0 ml IV UD PRN PRN Reason: Hypoglycemia Diagnostic Test (Pha) (Accu-Chek) 1 each FS [facility] Last Admin: 08/15/20 21:11 Dose: 1 each Documented by: Digoxin (Lanoxin) 62.5 mcg PO DAILY@1400 [facility] Last Admin: 08/15/20 15:08 Dose: 62.5 mcg Documented by: Docusate Sodium (Colace) 100 mg PO BID [facility] Last Admin: 08/15/20 21:12 Dose: 100 mg Documented by: Ferrous Sulfate (Ferrous Sulfate) 325 mg PO QDAY [facility] Glucose (Insta-Glucose) 15 gm PO PRN PRN PRN Reason: Hypoglycemia Heparin Sodium (Porcine) (Heparin) 5,000 unit SQ Q12 [facility] Last Admin: 08/15/20 21:12 Dose: 5,000 unit Documented by: Piperacillin Sod/Tazobactam (Sod 2.25 gm/ Dextrose) 50 mls @ 100 mls/hr IV Q6H [facility]; Protocol Last Infusion: 08/16/20 06:39 Dose: Infused Documented by: Insulin Human Lispro (Humalog) 0 unit SQ [facility]; Protocol Last Admin: 08/15/20 21:13 Dose: Not Given Documented by: Metoprolol Succinate (Toprol Xl) [address] [facility] Last Admin: 08/15/20 21:14 Dose: 25 mg Documented by: Ondansetron HCl (Zofran) 4 mg IV Q4HP PRN; Protocol PRN Reason: Nausea And Vomiting Tiotropium- Olodaterol [Stiolto Respimat] Inhaler 2 dose INH DAILY [facility] Sodium Chloride (Saline Flush) 10 ml IV Q8 FATUMA Last Admin: 08/16/20 05:54 Dose: 10 ml Documented by: Tamsulosin HCl (Flomax) 0.4 mg PO QDAY [facility] Warfarin Sodium (Coumadin Per Pharmacy) 1 order PO UD FATUMA A/P Narrative A/P Narrative: A: *Acute on chronic diastolic CHF: improved -on digoxin at home *PNA, b/l: -COVID-19/Respiratory panel/MRSA screening negative, SC neg *Hypotension: 500 cc normal saline bolus was given in the ER -Usual systolic blood pressure 90s at home per pt *COPD (2L@home): *DM: *HTN: *Afib, persistent: home dig/bb/ccb, warfarin *Obesity: *h/o CMP with ACID/PPM: last echo with normal EF *CKD III: *Anemia, chronic: P: -IV lasix prn -echo pending -cont dig, -cont BB, verapamil (HR ~60 w/o CCB) held d/t BP and pending echo -abx, -Decreased metoprolol to 25 from 50, -Monitor blood pressure, make sure MAP greater than 65 -cont home IH's -SSI, hold home metformin for now -pt/ot -CM for placement needs -ppx: warfarin per pharm code status: limited Time Spent With Patient Time: Total time spent is greater than 50% in coordination of care (as documented) at patient's floor/unit and/or counseling patient: QUALITY VTE Deep Vein Thrombosis/Pulmonary Embolism Present on Admission: No
[2020-08-16] MEDS: HYDROcodone/APAP 10/325MG TABLET PO SCH (08:05)
[2020-08-16] MEDS: DOCUSATE SODIUM 100 MG CAPSULE PO SCH (08:06)
[2020-08-16] MEDS: HEPARIN 5,000 UNIT/ML VIAL SQ SCH (08:06)
[2020-08-16] MEDS: INSULIN LISPRO 1 UNIT/0.01 ML UNIT SQ SCH ×2 (08:18→11:10)
[2020-08-16 08:26] LABS: ALT/SGPT 6 U/l (0-40); AST/SGOT 10 U/l (0-37); Albumin 3.4 gm/dL (3.2-5.2); Albumin/Globulin Ratio 1.3 (1.0-2.3); Alkaline Phosphatase 67 U/L (39-117); Bilirubin,Total 0.7 mg/dL (0.0-1.0); Blood Urea Nitrogen 29 mg/dl (8-23); Carbon Dioxide 27 mmol/L (22-30); Chloride 101 mmol/L (96-108); Globulin 2.6 gm/dL (2.2-3.7); Glomerular Filtration Rate 37; Glucose 83 mg/dL (70-105)
--- NOTE | 2020-08-16 08:51 | XRay Report ---
CLINICAL INFORMATION: CHF COMPARISON: 08/14/2020 FINDINGS: Moderate megaly is unchanged. Implantable cardioverter defibrillator may in stable satisfactory position without complication. Mediastinum is unremarkable. Pulmonary vessels remain mildly distended. Moderate patchy infiltrates in both lung bases and progressed. Mild diffuse interstitial edema. Small bilateral pleural effusions. IMPRESSION: Mild CHF - unchanged. Moderate patchy airspace disease - both lung bases worsening consider aspiration Interpreted and Authenticated by: Shoaib Hobson 08/16/20
[2020-08-16] MEDS ORDERED: Tiotropium-Olodaterol [Stiolto Respimat] Inhaler INH SCH (09:00)
[2020-08-16] MEDS ORDERED: FERROUS SULFATE 325 MG TABLET PO SCH (09:00)
[2020-08-16] MEDS ORDERED: cefTRIAXone 2 GM in DEXTROSE 5% IN WATER 50 ML IV SCH (09:00)
[2020-08-16] MEDS ORDERED: TAMSULOSIN 0.4 MG CAPSULE PO SCH (09:00)
--- NOTE | 2020-08-16 09:11 | Discharge Summary ---
Discharge Provider Provider Patient information: Note initiated : 08/16/20 at 9:10 am Service Date, if different from initiated Date: [] Patient: Zachery Ordoñez 84 y/o M admitted on 08/14/20 for Shortness of breath. Chief Complaint: [] Date of admission: 08/14/20 16:55 Discharge date: 08/16/20 Primary care physician: Shey Abebe Consults: 08/14/20 15:32 Consult to Physician [CONS] Stat Comment: Consulting Provider: Romy Mckinney Reason For Exam: Physician to Consult Discharge Meds Discharge Medications Home Medications atorvastatin 10 mg tablet 10 mg PO HS 05/10/18 [History Confirmed 08/14/20 Last Taken 08/13/20 19:00] digoxin 125 mcg (0.125 mg) tablet 62.5 mcg PO QDAY 05/10/18 [History Confirmed 08/14/20 Last Taken 08/14/20 07:00] ipratropium 0.5 mg-albuterol 3 mg (2.5 mg base)/3 mL nebulization soln 3 ml INHALATION QIDP PRN 05/10/18 [History Confirmed 08/14/20 Last Taken 02/07/19 08:00] warfarin 5 mg PO SUTUWETHSA 02/08/19 [History Confirmed 08/14/20 Last Taken 08/12/20 07:00] clotrimazole 1 % topical cream 1 applic TOPICAL BID PRN 08/18/19 [History Confirmed 08/14/20 Last Taken 08/14/20 07:00] tamsulosin 0.4 mg capsule 0.4 mg PO QDAY #30 cap 08/25/19 [Rx Confirmed 08/14/20 Last Taken 08/14/20 07:00] hydrocodone 10 mg-acetaminophen 325 mg tablet 1 tab PO TID tab 12/16/19 [History Confirmed 08/14/20 Last Taken 08/14/20 07:00] ferrous sulfate 325 mg (65 mg iron) tablet 325 mg PO QDAY #90 tab 05/30/20 [Rx Confirmed 08/14/20 Last Taken 08/14/20 07:00] potassium chloride 10 mEq tablet,extended release 10 meq PO .qod #60 tab 05/30/20 [Rx Confirmed 08/14/20 Last Taken 08/14/20 07:00] Stiolto Respimat 2 puff INHALATION Q24H 08/14/20 [History Confirmed 08/14/20 Last Taken 08/14/20 07:00] albuterol sulfate 2 puff INHALATION Q4H PRN 08/14/20 [History Confirmed 08/14/20 Last Taken 08/14/20 07:00] metformin 500 mg PO BID 08/14/20 [History Confirmed 08/14/20 Last Taken 08/14/20 07:00] warfarin 2.5 mg PO MOFR 08/14/20 [History Confirmed 08/14/20 Last Taken 08/13/20 07:00] metoprolol succinate 25 mg PO HS #10 tab 08/16/20 [Rx Last Taken Unknown] COURSE Hospital Course Hospital course: Mr. Ordoñez is a 84 year old M with a history of CHF, atrial fibrillation on warfarin, COPD, CKD stage III, and diabetes type 2 who presented to the ER due to worsening shortness of breath. As per patient, patient has been having shortness breath for 1month. She is on home oxygen 2 L. In the ER, she was found to have no hypotension, 80s, which was improved after the 500 cc bolus was given. Chest x-ray showed "patchy airspace disease in both mid and lower lungs likely indicate superimposed infection or aspiration rather than atypical edema". But patient is afebrile and does not have leukocytosis. Procalcitonin 0.04. Lactic acid 1.1. BNP 2223. When I saw this patient in the ER, other than the symptoms mentioned above, she denied headache, dizziness, chest pain, abdominal pain, or dysuria. 08/15 Pt feels ok. no new complaints. BP 97/47 when I saw him. I will order lasix 20 mg iv once for him today. 08/16 Doing better and feeling better. Blood pressure stable. No new complaints. Baseline cough and shortness of breath. No edema in his legs this morning. On home oxygen regimen. Heart rate well controlled without verapamil. Blood pressure improved. A: *Acute on chronic diastolic CHF: improved -on digoxin at home *?PNA, b/l: appears to have fibrosis on prior imaging -COVID-19/Respiratory panel/MRSA screening negative, SC neg *Pulm Fibrosis *Hypotension: 500 cc normal saline bolus was given in the ER -Usual systolic blood pressure 90s at home per pt *COPD (2L@home): *DM: *HTN: *Afib, persistent: home dig/bb/ccb, warfarin *Obesity: *h/o CMP with ACID/PPM: last echo with normal EF *CKD III: *Anemia, chronic: Discharge diagnosis: Acute on chronic diastolic heart failure pneumonia hypertension COPD Secondary discharge diagnosis: Diabetes hypertension atrial fibrillation obesity chronic kidney disease chronic anemia Time Spent with Patient Time attestation: Total time spent providing and/or coordinating discharge services: Time spent: Greater than 30 minutes EXAM Constitutional Vitals: Temp Pulse Resp BP Pulse Ox 98.9 F 60 12 109/59 95 08/16/20 08:01 08/16/20 08:01 08/16/20 08:01 08/16/20 08:01 08/16/20 08:01 Discharge Data Data Completed and Pending Labs on day of discharge: Labs from last 24 hours 08/16/20 08/16/20 08/15/20 04:44 04:44 09:13 WBC RBC Hgb Hct MCV MCH MCHC RDW Plt Count MPV Gran % Lymph % (Auto) [place] % (Auto) Eos % (Auto) Baso % (Auto) Gran # Lymph # (Auto) [place] # (Auto) Eos # (Auto) Baso # (Auto) PT 20.0 H INR 1.7 H Sodium 140 140 Potassium 4.6 4.6 Chloride 101 105 Carbon Dioxide 27 25 Anion Gap 12.0 10.0 BUN 29 H 25 H Creatinine 1.7 H 1.7 H GFR Calculation 37 37 Glucose 83 99 Uric Acid 6.8 Calcium 9.0 9.2 Phosphorus 4.1 Magnesium 2.2 Total Bilirubin 0.7 1.0 Direct Bilirubin 0.2 GGT 14 AST 10 11 ALT 6 7 Alkaline Phosphatase 67 80 Lactate Dehydrogenase 170 Total Protein 6.0 6.4 Albumin 3.4 3.6 Globulin 2.6 2.8 Albumin/Globulin Ratio 1.3 1.3 Triglycerides 91 08/15/20 09:13 WBC 6.4 RBC 4.21 L Hgb 10.2 L Hct 33.9 L MCV 80.5 MCH 24.2 L MCHC 30.1 L RDW 15.9 H Plt Count 183 MPV 10.7 H Gran % 74.6 Lymph % (Auto) 14.9 L [place] % (Auto) 7.5 Eos % (Auto) 2.2 Baso % (Auto) 0.8 Gran # 4.74 Lymph # (Auto) 0.95 L [place] # (Auto) 0.48 Eos # (Auto) 0.14 Baso # (Auto) 0.05 PT INR Sodium Potassium Chloride Carbon Dioxide Anion Gap BUN Creatinine GFR Calculation Glucose Uric Acid Calcium Phosphorus Magnesium Total Bilirubin Direct Bilirubin GGT AST ALT Alkaline Phosphatase Lactate Dehydrogenase Total Protein Albumin Globulin Albumin/Globulin Ratio Triglycerides Preliminary micro results at discharge 08/14/20 16:31 Blood Culture - Preliminary Blood 08/14/20 16:24 Blood Culture - Preliminary Blood Discharge Plan Patient/Caregiver Discharge Instructions Activity: increase activity as tolerated Diet: Consistent Carbohydrate Prescriptions: New metoprolol succinate 50 mg Tablet Extended Release 24 Hr 25 mg PO HS Qty: 10 RF: 0 Continued tamsulosin 0.4 mg capsule 0.4 mg PO QDAY Qty: 30 RF: 3 clotrimazole 1 % cream 1 applic TOPICAL BID PRN (Reason: Rash) RF: 0 ferrous sulfate 325 mg (65 mg iron) tablet 325 mg PO QDAY Qty: 90 RF: 1 potassium chloride 10 mEq tablet extended release 10 meq PO .qod Qty: 60 RF: 0 atorvastatin 10 mg tablet 10 mg PO HS RF: 0 digoxin 125 mcg tablet 62.5 mcg PO QDAY RF: 0 ipratropium-albuterol 0.5 mg-3 mg(2.5 mg base)/3 mL solution for nebulization 3 ml INHALATION QIDP PRN (Reason: Shortness Of Breath) RF: 0 hydrocodone-acetaminophen 10-325 mg tablet 1 tab PO TID RF: 0 warfarin 5 MG tablet 5 mg PO SUTUWETHSA RF: 0 albuterol sulfate 90 mcg/actuation Hfa Aerosol Inhaler 2 puff INHALATION Q4H PRN (Reason: Shortness Of Breath) RF: 0 Stiolto Respimat 2.5-2.5 mcg/actuation Mist 2 puff INHALATION Q24H RF: 0 warfarin 2.5 mg Tablet 2.5 mg PO MOFR RF: 0 metformin 500 mg Tablet Extended Release 24 Hr 500 mg PO BID RF: 0 Discontinued metoprolol succinate 50 mg capsule,sprinkle,ER 24hr 50 mg PO QDAY Qty: 30 RF: 0 verapamil 240 mg Capsule,Ext Rel. Pellets 24 Hr 240 mg PO QAM RF: 0 Follow Up Plan Follow up with: Shey Abebe ARNP [Primary Care Provider] - Patient Disposition: Home Health Service Prognosis: Fair Overall status at discharge: patient is progressing back to baseline Discharge Orders: Discharge Order (Routine); Ordered 08/16/20 Ordered By: Benjamin Mosqueda [facility] VTE Deep Vein Thrombosis/Pulmonary Embolism Present on Admission: No
[2020-08-16] MEDS ORDERED: WARFARIN 5 MG TABLET PO ONE (14:00)
[2020-08-17] MEDS ORDERED: WARFARIN 2.5 MG TABLET PO SCH (14:00)
== END 2020-08-16 13:20 | disposition home health service (06) | DRG 291 ==
LOC: ED 12:14 → ICU 16:54
PROVIDERS: ADMIT Internal Medicine; ATTEND Internal Medicine

== ENCOUNTER 2021-02-15 10:16 | Observation (INO) ==
[2021-02-15] MEDS ORDERED: IPRATROPIUM/ALBUTEROL 3 ML AMPUL.NEB NEB ONE ×2 (10:42→19:27)
[2021-02-15] MEDS ORDERED: ONDANSETRON 4 MG/2 ML VIAL IV ONE ×2 (11:05→11:11)
--- NOTE | 2021-02-15 11:13 | Cat Scan Report ---
CLINICAL INFORMATION: Altered mental status COMPARISON: 08/29/2020 TECHNIQUE: 2.5 mm helical slices were obtained in the skull base to vertex. Following reconstruction, axial reformatted images were reviewed at bone and parenchymal windows. The exam was performed using radiation dose optimization techniques including, but not limited to, automated exposure control, adjustment of the mA and/or kV according to patient size and use of iterative reconstruction technique. FINDINGS: The ventricles, sulci, fissures, and cisterns are symmetrically enlarged compatible with moderate age-related atrophy.. No extra-axial fluid collections are identified. Moderate patchy chronic ischemic changes in the cerebral white matter expected for age and unchanged. There is no evidence of hemorrhage, mass effect, or edema. Bone windows show no osseous abnormality. IMPRESSION: Moderate atrophy and patchy chronic ischemic changes in the cerebral white matter stable. No acute finding. Interpreted and Authenticated by: Shoaib Hobson 02/15/21
--- NOTE | 2021-02-15 11:15 | XRay Report ---
CLINICAL INFORMATION: AMS COMPARISON: 08/29/2020 FINDINGS: Implantable cardioverter defibrillator in stable satisfactory position without evidence of breakage or other complication. Moderate cardiomegaly is stable. Mediastinum and pulmonary vessels are normal. COPD with minor airspace disease in the right base similar to previous exam likely fibrosis. No definite new pulmonary abnormalities no effusion. IMPRESSION: Moderate cardiomegaly stable. COPD changes with mild fibrosis right base. No definite acute finding. Interpreted and Authenticated by: Shoaib Hobson 02/15/21
[2021-02-15 11:31] LABS: Basophils # (Auto) 0.06 K/mcL (0.00-0.20); Basophils % (Auto) 0.6 % (0.0-2.0); Eosinophils # (Auto) 0.25 K/mcL (0.00-0.70); Eosinophils % (Auto) 2.7 % (0.0-7.0); Hematocrit 41.9 % (41.0-55.0); Hemoglobin 12.1 g/dL (13.5-16.5); Lymphocytes # (Auto) 1.51 K/mcL (1.50-4.80); Lymphocytes % (Auto) 16.3 % (15.0-49.0); Mean Cell Volume 77.6 fL (80.0-100.0); Mean Corpuscular HGB Conc 28.9 g/dL (31.0-36.0); Mean Platelet Volume 10.7 fL (7.4-10.4); Monocytes # (Auto) 0.36 K/mcL (0.10-0.90); Monocytes % (Auto) 3.9 % (1.0-12.0); Neutrophils % (Auto) 76.5 % (38.0-78.0); Platelet Count 205 K/mcL (140-440); Red Cell Distribution Width 16.9 % (11.5-14.5); WBC 9.3 K/mcL (4.5-11.0)
[2021-02-15 11:51] LABS: POC INR 2.7 (0.8-1.2); POC Pro Time 31.1 sec (11.9-14.5)
[2021-02-15 11:56] LABS: ALT/SGPT 12 U/L (<40); AST/SGOT 17 U/L (<40); Albumin 3.5 gm/dL (3.2-5.2); Alkaline Phosphatase 112 U/L (39-117); Bilirubin,Total 0.5 mg/dL (0.1-1.0); Blood Urea Nitrogen 17 mg/dL (8-23); Calcium 8.9 mg/dL (8.6-10.4); Carbon Dioxide 32 mmol/L (22-30); Chloride 98 mmol/L (96-108); Globulin 3.5 gm/dL (2.2-3.7); Glomerular Filtration Rate 39; Glucose 154 mg/dL (70-105)
[2021-02-15 13:56] LABS: Appearance,Urine CLOUDY (Clear); Bacteria,Urine FEW /hpf (0); Bilirubin,Urine Negative (Negative); Color,Urine YELLOW; Culture Indicated,Urine yes; Glucose,Urine (UA) Negative (Negative); Ketones,Urine Negative (Negative); Leukocyte Esterase,Urine 500 /ug (Negative); Mucus,Urine FEW /hpf; Nitrate,Urine POS (Negative); Protein,Urine Negative (Negative); Specific Gravity,Urine 1.008 (1.000-1.035); Urine Blood 0.03 mg/dL (Negative); Urine Hyaline Cast 11 /lph (0-2); Urine RBC 16 /hpf (0-3); Urine Squamous Epithelial Cell 1 /hpf (0-4); Urine WBC > 182 /hpf (0-4); Urobilinogen,Urine Negative
[2021-02-15] MEDS ORDERED: cefTRIAXone 2 GM in DEXTROSE 5% IN WATER 50 ML IV ONE (14:14)
[2021-02-15] MEDS ORDERED: 0.9 % SODIUM CHLORIDE 1,000 ML IV ONE (14:14)
--- NOTE | 2021-02-15 14:30 | Emergency Department Note ---
Altered Mental Status HPI General Chief Complaint: Altered Mental Status Stated Complaint: altered loc Time Seen by Provider: 02/15/21 10:18 Source: patient, EMS, old records reviewed and other Mode of arrival: ambulatory Limitations: altered mental status History of Present Illness HPI Narrative: Narrative: 85-year-old male was found pounding on his neighbors door and yelling incoherently. Patient states he does not know what happened to him and he does not know why he was acting that way. States that he felt fine last night and he felt fine this morning. Further conversations elicit a history of grade fevers and chills and he had one episode of nausea and vomiting after arrival to emergency department no further history is available from the patient MD complaint: altered mental status Onset (ago): hour(s) (2 hours prior to arrival) Severity: moderate Consistency of Symptoms: waxing and waning Context: unknown Associated symptoms: Reports diaphoresis, fever, chills, malaise, nausea/vomiting, weakness, foul smelling urine and incontinence; Denies chest pain, cough, headaches, loss of appetite, rash, seizure, shortness of breath, syncope, difficulty walking and diarrhea Related Data Home Medications Medication Instructions Recorded Confirmed ipratropium 0.5 mg-albuterol 3 mg 3 ml INHALATION QIDP PRN 05/10/18 09/14/20 (2.5 mg base)/3 mL nebulization soln warfarin 5 mg PO SUTUWETHSA 02/08/19 09/14/20 hydrocodone 10 mg-acetaminophen 1 tab PO TID tab 12/16/19 09/14/20 325 mg tablet Stiolto Respimat 2 puff INHALATION Q24H 08/14/20 09/14/20 albuterol sulfate 2 puff INHALATION Q4H PRN 08/14/20 09/14/20 warfarin 2.5 mg PO MOFR 08/14/20 09/14/20 atorvastatin 10 mg tablet 10 mg PO Q OTHER DAY tab 09/14/20 09/14/20 digoxin 125 mcg (0.125 mg) tablet 62.5 mcg PO QDAY 09/14/20 09/14/20 furosemide 40 mg tablet 40 mg PO QDAY 09/14/20 09/14/20 potassium chloride 10 mEq 20 meq PO QDAY 09/14/20 09/14/20 capsule,extended release Previous Rx's Medication Instructions Recorded tamsulosin 0.4 mg capsule 0.4 mg PO QDAY #30 cap 08/25/19 sulfamethoxazole 800 1 tab PO QHS #7 tab 10/25/20 mg-trimethoprim 160 mg tablet Allergies Allergy/AdvReac Type Severity Reaction Status Date / Time doxycycline Allergy Mild Rash Verified 10/25/20 11:29 morphine AdvReac Severe Other Verified 10/25/20 11:29 Review of Systems ROS ROS Narrative: Narrative: Limitations: ROS unobtainable due to patients medical condition [facility] Narrative Patient History Narrative: Narrative: Medical/Surgical/Family History All Active Problems (Updated 02/15/21 @ 14:27 by Jamel Funez MD) E. coli UTI (urinary tract infection) (Acute) Acute dehydration (Acute) Low blood pressure (Acute) Medical non-compliance (Acute) Acute UTI (Acute) Lower urinary tract symptoms (Acute) DNR (do not resuscitate) (Chronic) CHF exacerbation (Acute) Hypotension (Acute) Anemia (Acute) Hypoxia (Acute) History of urinary retention (Acute) Hypotension (Acute) Acute kidney injury superimposed on chronic kidney disease (Acute) Atrial fibrillation (Chronic) Diabetes mellitus (Chronic 2008) Paroxysmal atrial fibrillation (Chronic 12/04/16) Chronic atrial fibrillation (Chronic 06/24/19) Congestive heart failure (Chronic 11/26/17) Essential hypertension (Chronic 1999) 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, moderately decreased glomerular filtration rate (GFR) between 30-44 mL/min/1.73 square meter and albuminuria creatinine ratio less than 30 mg/g (Chronic) Coffee ground emesis (Acute) COPD (chronic obstructive pulmonary disease) (Chronic) Anemia (Chronic) Chronic renal failure, stage 2 (mild) (Acute) GERD (gastroesophageal reflux disease) (Chronic 05/05/18) Bacterial cystitis (Acute) Elevated INR (international normalized ratio) (Acute) RBC microcytosis (Acute) History of tobacco use (Chronic 05/05/18) History of cardiac arrest (Chronic 12/04/16) Memory impairment (Chronic 03/20/17) Lumbar radiculopathy (Chronic 12/11/17) Chronic low back pain (Chronic 05/05/18) Spinal stenosis of lumbar region (Chronic 01/14/18) 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) Osteoarthritis (Chronic 02/18/17) Erectile dysfunction (Chronic 01/07/18) Abdominal aortic aneurysm without rupture (Chronic 04/21/17) Left carotid artery stenosis (Chronic 2011) Obesity (Chronic 05/05/18) Hypercholesterolemia (Chronic 12/04/16) UTI (urinary tract infection) (Chronic) Medical History (Updated 02/15/21 @ 14:27 by Jamel Funez MD) Abdominal aortic aneurysm without rupture (04/21/17) Acute exacerbation of chronic obstructive airways disease (08/12/18) Acute retention of urine Anemia Atrial fibrillation Bacterial cystitis Cardiac pacemaker in situ (12/04/16) Chronic atrial fibrillation (06/24/19) Chronic kidney disease (CKD) stage G3b/A1, moderately decreased glomerular filtration rate (GFR) between 30-44 mL/min/1.73 square meter and albuminuria creatinine ratio less than 30 mg/g Chronic low back pain (05/05/18) Chronic renal failure, stage 2 (mild) Coffee ground emesis Congestive heart failure (11/26/17) and 07/05/2018 Constipation Constipation COPD (chronic obstructive pulmonary disease) Degeneration of lumbar intervertebral disc (12/11/17) Diabetes mellitus (2008) DNR (do not resuscitate) Per discussion with patient, 08/14/2020 Elevated INR (international normalized ratio) Erectile dysfunction (01/07/18) Essential hypertension (1999) GERD (gastroesophageal reflux disease) (05/05/18) resolved History of cardiac arrest (12/04/16) History of tobacco use (05/05/18) Hypercholesterolemia (12/04/16) Hypoxia Left carotid artery stenosis (2011) Low blood pressure, not hypotension Lower urinary tract symptoms Lumbar radiculopathy (12/11/17) Memory impairment (03/20/17) Obesity (05/05/18) Osteoarthritis (02/18/17) Paroxysmal atrial fibrillation (12/04/16) Pneumonia Pneumonia (03/15/19) RBC microcytosis Spinal stenosis of lumbar region (01/14/18) Urinary retention started tamsulosin 08/2019 UTI (urinary tract infection) UTI (urinary tract infection) Surgical History History of back surgery (11/23/12) History of cataract surgery History of cholecystectomy (11/23/99) History of endarterectomy (11/23/11) History of heart surgery (11/23/08) X 2, 11/23/02 ICD Placement, 11/23/08 Generator Change History of shoulder surgery (11/23/79) Bilateral History of spinal fusion (11/23/1959) Family History Family/Other Substance abuse Child Social History Smoking Status: Former smoker Alcohol Intake Frequency: does not drink Substance Use: does not use Exam Narrative Narrative: Narrative: General Limitations: altered mental status General appearance: Present alert, in no apparent distress and malaise Head Head: Present atraumatic and normocephalic Eye Eye: Present normal appearance, PERRL and EOMI ENT ENT: Present normal exam and mucous membranes moist Neck Neck: Present normal inspection and full ROM Chest Chest: Present normal inspection; Absent tenderness Respiratory Respiratory: Present normal lung sounds bilaterally; Absent respiratory distress Cardiovascular Cardiovascular: Present regular rate and normal rhythm; Absent systolic murmur Adbominal Abdominal: Present soft; Absent distention, tenderness, guarding and rebound Extremities Extremities: Present normal inspection and full ROM; Absent tenderness, pedal edema and pretibial edema Back Back: Present normal inspection; Absent CVA tenderness (R) and CVA tenderness (L) Neurological Neurological: Present alert and other (Confused, but alert and oriented to person place he does not know time and he has a nonfocal exam) Psychiatric Psychiatric: Present normal affect and normal mood Skin Skin: Present warm (WNL); Absent rash Course Vital Signs Vital signs: Vital Signs Temperature 97.6 F 02/15/21 10:19 Pulse Rate 94 H 02/15/21 10:19 Respiratory Rate 18 02/15/21 10:19 Blood Pressure 170/98 02/15/21 10:19 Pulse Oximetry (%) 89 L 02/15/21 10:19 Temperature 97.6 F 02/15/21 10:19 Pulse Rate 72 02/15/21 14:06 Respiratory Rate 18 02/15/21 10:19 Blood Pressure 92/66 02/15/21 14:06 Pulse Oximetry (%) 96 02/15/21 14:06 [facility] MDM Narrative Medical decision making narrative: Narrative: 85-year-old male with confusion and altered mental status. Head CT is noncontributory chest x-ray shows no signs of pneumonia urinalysis with pyuria patient's blood pressure has been trending lower so received a liter normal saline. Blood cultures and urine cultures were obtained before receiving IV Ro cephin. Glucose is 154 I believe his mental status probably related to an infectious cause would like him admitted for IV fluids IV antibiotics and observation. Medical Records Medical records reviewed: Yes I reviewed the patient's medical records. Lab Data Lab results reviewed: Yes I reviewed the patient's lab results. Result diagrams: 02/15/21 10:51 02/15/21 10:50 Labs: Lab Results 02/15/21 02/15/21 02/15/21 Range/Units 10:50 10:50 10:51 WBC 9.3 (4.5-11.0) K/mcL RBC 5.40 (4.50-5.90) M/mcL Hgb 12.1 L (13.5-16.5) g/dL Hct 41.9 (41.0-55.0) % MCV 77.6 L (80.0-100.0) fL MCH 22.4 L (26.0-34.0) pg MCHC 28.9 L (31.0-36.0) g/dL RDW 16.9 H (11.5-14.5) % Plt Count 205 (140-440) K/mcL MPV 10.7 H (7.4-10.4) fL Neut % (Auto) 76.5 (38.0-78.0) % Lymph % (Auto) 16.3 (15.0-49.0) % [place] % (Auto) 3.9 (1.0-12.0) % Eos % (Auto) 2.7 (0.0-7.0) % Baso % (Auto) 0.6 (0.0-2.0) % Lymph # (Auto) 1.51 (1.50-4.80) K/mcL [place] # (Auto) 0.36 (0.10-0.90) K/mcL Eos # (Auto) 0.25 (0.00-0.70) K/mcL Baso # (Auto) 0.06 (0.00-0.20) K/mcL Absolute Neutrophils 7.10 (1.80-8.00) K/mcL POC PT (11.9-14.5) sec POC INR (0.8-1.2) VBG Lactic Acid (0.5-2.0) mmol/L Sodium 135 (133-145) mmol/L Potassium 5.1 (3.3-5.1) mmol/L Chloride 98 (96-108) mmol/L Carbon Dioxide 32 H (22-30) mmol/L Anion Gap 5.0 L (8.0-16.0) BUN 17 (8-23) mg/dL Creatinine 1.6 H (0.7-1.2) mg/dL GFR Calculation 39 Glucose 154 H (70-105) mg/dL Calcium 8.9 (8.6-10.4) mg/dL Total Bilirubin 0.5 (0.1-1.0) mg/dL AST 17 (<40) U/L ALT 12 (<40) U/L Alkaline Phosphatase 112 (39-117) U/L Ammonia (16-60) umol/L Troponin T < 0.01 (<0.03) ng/mL NT-Pro-B Natriuret Pep 1912.0 H (<450.0) pg/mL Total Protein 7.0 (5.9-8.4) gm/dL Albumin 3.5 (3.2-5.2) gm/dL Globulin 3.5 (2.2-3.7) gm/dL Albumin/Globulin Ratio 1.0 (1.0-2.3) Urine Color Urine Appearance (Clear) Urine pH (5.0-9.0) Ur Specific [place] (1.000-1.035) Urine Protein (Negative) mg/dL Urine Glucose (UA) (Negative) mg/dL Urine Ketones (Negative) mg/dL Urine Occult Blood (Negative) mg/dL Urine Nitrate (Negative) Urine Bilirubin (Negative) mg/dL Urine Urobilinogen mg/dL Ur Leukocyte Esterase (Negative) /ug Urine RBC (0-3) /hpf Urine WBC (0-4) /hpf Ur Squamous Epith Cells (0-4) /hpf Urine Bacteria (0) /hpf Hyaline Casts (0-2) /lph Urine Mucus (None) /hpf Ur Culture Indicated? 02/15/21 02/15/21 02/15/21 Range/Units 11:18 11:27 11:27 WBC (4.5-11.0) K/mcL RBC (4.50-5.90) M/mcL Hgb (13.5-16.5) g/dL Hct (41.0-55.0) % MCV (80.0-100.0) fL MCH (26.0-34.0) pg MCHC (31.0-36.0) g/dL RDW (11.5-14.5) % Plt Count (140-440) K/mcL MPV (7.4-10.4) fL Neut % (Auto) (38.0-78.0) % Lymph % (Auto) (15.0-49.0) % [place] % (Auto) (1.0-12.0) % Eos % (Auto) (0.0-7.0) % Baso % (Auto) (0.0-2.0) % Lymph # (Auto) (1.50-4.80) K/mcL [place] # (Auto) (0.10-0.90) K/mcL Eos # (Auto) (0.00-0.70) K/mcL Baso # (Auto) (0.00-0.20) K/mcL Absolute Neutrophils (1.80-8.00) K/mcL POC PT 31.1 H (11.9-14.5) sec POC INR 2.7 H (0.8-1.2) VBG Lactic Acid 1.7 (0.5-2.0) mmol/L Sodium (133-145) mmol/L Potassium (3.3-5.1) mmol/L Chloride (96-108) mmol/L Carbon Dioxide (22-30) mmol/L Anion Gap (8.0-16.0) BUN (8-23) mg/dL Creatinine (0.7-1.2) mg/dL GFR Calculation Glucose (70-105) mg/dL Calcium (8.6-10.4) mg/dL Total Bilirubin (0.1-1.0) mg/dL AST (<40) U/L ALT (<40) U/L Alkaline Phosphatase (39-117) U/L Ammonia 11 L (16-60) umol/L Troponin T (<0.03) ng/mL NT-Pro-B Natriuret Pep (<450.0) pg/mL Total Protein (5.9-8.4) gm/dL Albumin (3.2-5.2) gm/dL Globulin (2.2-3.7) gm/dL Albumin/Globulin Ratio (1.0-2.3) Urine Color Urine Appearance (Clear) Urine pH (5.0-9.0) Ur Specific [place] (1.000-1.035) Urine Protein (Negative) mg/dL Urine Glucose (UA) (Negative) mg/dL Urine Ketones (Negative) mg/dL Urine Occult Blood (Negative) mg/dL Urine Nitrate (Negative) Urine Bilirubin (Negative) mg/dL Urine Urobilinogen mg/dL Ur Leukocyte Esterase (Negative) /ug Urine RBC (0-3) /hpf Urine WBC (0-4) /hpf Ur Squamous Epith Cells (0-4) /hpf Urine Bacteria (0) /hpf Hyaline Casts (0-2) /lph Urine Mucus (None) /hpf Ur Culture Indicated? 02/15/21 Range/Units 12:30 WBC (4.5-11.0) K/mcL RBC (4.50-5.90) M/mcL Hgb (13.5-16.5) g/dL Hct (41.0-55.0) % MCV (80.0-100.0) fL MCH (26.0-34.0) pg MCHC (31.0-36.0) g/dL RDW (11.5-14.5) % Plt Count (140-440) K/mcL MPV (7.4-10.4) fL Neut % (Auto) (38.0-78.0) % Lymph % (Auto) (15.0-49.0) % [place] % (Auto) (1.0-12.0) % Eos % (Auto) (0.0-7.0) % Baso % (Auto) (0.0-2.0) % Lymph # (Auto) (1.50-4.80) K/mcL [place] # (Auto) (0.10-0.90) K/mcL Eos # (Auto) (0.00-0.70) K/mcL Baso # (Auto) (0.00-0.20) K/mcL Absolute Neutrophils (1.80-8.00) K/mcL POC PT (11.9-14.5) sec POC INR (0.8-1.2) VBG Lactic Acid (0.5-2.0) mmol/L Sodium (133-145) mmol/L Potassium (3.3-5.1) mmol/L Chloride (96-108) mmol/L Carbon Dioxide (22-30) mmol/L Anion Gap (8.0-16.0) BUN (8-23) mg/dL Creatinine (0.7-1.2) mg/dL GFR Calculation Glucose (70-105) mg/dL Calcium (8.6-10.4) mg/dL Total Bilirubin (0.1-1.0) mg/dL AST (<40) U/L ALT (<40) U/L Alkaline Phosphatase (39-117) U/L Ammonia (16-60) umol/L Troponin T (<0.03) ng/mL NT-Pro-B Natriuret Pep (<450.0) pg/mL Total Protein (5.9-8.4) gm/dL Albumin (3.2-5.2) gm/dL Globulin (2.2-3.7) gm/dL Albumin/Globulin Ratio (1.0-2.3) Urine Color Yellow Urine Appearance Cloudy A (Clear) Urine pH 6.0 (5.0-9.0) Ur Specific [place] 1.008 (1.000-1.035) Urine Protein Negative (Negative) mg/dL Urine Glucose (UA) Negative (Negative) mg/dL Urine Ketones Negative (Negative) mg/dL Urine Occult Blood 0.03 (Negative) mg/dL Urine Nitrate Pos A (Negative) Urine Bilirubin Negative (Negative) mg/dL Urine Urobilinogen Negative mg/dL Ur Leukocyte Esterase 500 A (Negative) /ug Urine RBC 16 H (0-3) /hpf Urine WBC > 182 H (0-4) /hpf Ur Squamous Epith Cells 1 (0-4) /hpf Urine Bacteria Few A (0) /hpf Hyaline Casts 11 H (0-2) /lph Urine Mucus Few A (None) /hpf Ur Culture Indicated? yes Radiology Data Radiology results reviewed: Yes I reviewed the patient's radiology results. EKG Data EKG #1: EKG attestation: Yes I reviewed and interpreted this EKG. EKG results narrative: EKG is paced at a rate of 77 with 100% capture Interpretation: unchanged compared to prior tracing (date) Pulse Oximetry Data Pulse Ox %: 96 Interpretation: 96% and within normal limits for this patient Discharge Plan Patient/Caregiver Discharge Instructions Pt seen by [employer] SUPERVISOR/PA only: No Clinical Impression: E. coli UTI (urinary tract infection) Patient Disposition: Xfer As Inpt ([facility]) Follow up with: Shey Abebe, [employer] [Primary Care Provider] - Prescriptions: No Action tamsulosin 0.4 mg capsule 0.4 mg PO QDAY Qty: 30 RF: 3 sulfamethoxazole-trimethoprim [Bactrim DS] 800-160 mg tablet 1 tab PO QHS Qty: 7 RF: 0 furosemide 40 mg tablet 40 mg PO QDAY RF: 0 potassium chloride 10 mEq capsule, extended release 20 meq PO QDAY RF: 0 ipratropium-albuterol 0.5 mg-3 mg(2.5 mg base)/3 mL solution for nebulization 3 ml INHALATION QIDP PRN (Reason: Shortness Of Breath) RF: 0 hydrocodone-acetaminophen 10-325 mg tablet 1 tab PO TID RF: 0 atorvastatin 10 mg tablet 10 mg PO Q OTHER DAY RF: 0 digoxin 125 mcg (0.125 mg) tablet 62.5 mcg PO QDAY RF: 0 warfarin 5 MG tablet 5 mg PO SUTUWETHSA RF: 0 albuterol sulfate 90 mcg/actuation Hfa Aerosol Inhaler 2 puff INHALATION Q4H PRN (Reason: Shortness Of Breath) RF: 0 Stiolto Respimat 2.5-2.5 mcg/actuation Mist 2 puff INHALATION Q24H RF: 0 warfarin 2.5 mg Tablet 2.5 mg PO MOFR RF: 0
--- NOTE | 2021-02-15 16:45 | Internal Med History&Physical ---
HPI History of Present Illness Patient information: Note initiated : 02/15/21 at 4:33 pm Service Date, if different from initiated Date: [] Patient: Zachery Ordoñez 85 y/o M admitted on for altered loc. Chief Complaint: [] History of present illness: Mr. Ordoñez is a 85 year old male with a history of atrial fibrillationon Coumadin, HFpEF, COPD with chronic hypoxia2 L/min, presented to the ED for encephalopathy. Apparently, the patient was found pounding in his neighbors door and yelling incoherent. The patient does not recall that happened, instead saying that he was pounding on his door. Patient says that he does not feel well today but cannot specify any further details. He says that he did feel okay yesterday. In the ED, the patient had UA suggestive of UTI. The patient was admitted to observation for encephalopathy possibly secondary to UTI. Constitutional: no fever, fatigue, or weight loss Eyes: no vision changes or pain Cardiovascular: no chest pain, no palpitations Respiratory: no cough or dyspnea Gastrointestinal: no abdominal pain, no nausea, vomiting, or diarrhea Genitourinary: Positive for difficulty voiding, suprapubic tenderness Musculoskeletal: no arthralgia or myalgia Integumentary: no skin lesion or wound Neurological: no focal weakness or numbness Psychiatric: no anxiety or depression PFSH PFSH All Active Problems (Updated 02/15/21 @ 14:27 by Jamel Funez MD) E. coli UTI (urinary tract infection) (Acute) Acute dehydration (Acute) Low blood pressure (Acute) Medical non-compliance (Acute) Acute UTI (Acute) Lower urinary tract symptoms (Acute) DNR (do not resuscitate) (Chronic) CHF exacerbation (Acute) Hypotension (Acute) Anemia (Acute) Hypoxia (Acute) History of urinary retention (Acute) Hypotension (Acute) Acute kidney injury superimposed on chronic kidney disease (Acute) Atrial fibrillation (Chronic) Diabetes mellitus (Chronic 2008) Paroxysmal atrial fibrillation (Chronic 12/04/16) Chronic atrial fibrillation (Chronic 06/24/19) Congestive heart failure (Chronic 11/26/17) Essential hypertension (Chronic 1999) 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, moderately decreased glomerular filtration rate (GFR) between 30-44 mL/min/1.73 square meter and albuminuria creatinine ratio less than 30 mg/g (Chronic) Coffee ground emesis (Acute) COPD (chronic obstructive pulmonary disease) (Chronic) Anemia (Chronic) Chronic renal failure, stage 2 (mild) (Acute) GERD (gastroesophageal reflux disease) (Chronic 05/05/18) Bacterial cystitis (Acute) Elevated INR (international normalized ratio) (Acute) RBC microcytosis (Acute) History of tobacco use (Chronic 05/05/18) History of cardiac arrest (Chronic 12/04/16) Memory impairment (Chronic 03/20/17) Lumbar radiculopathy (Chronic 12/11/17) Chronic low back pain (Chronic 05/05/18) Spinal stenosis of lumbar region (Chronic 01/14/18) 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) Osteoarthritis (Chronic 02/18/17) Erectile dysfunction (Chronic 01/07/18) Abdominal aortic aneurysm without rupture (Chronic 04/21/17) Left carotid artery stenosis (Chronic 2011) Obesity (Chronic 05/05/18) Hypercholesterolemia (Chronic 12/04/16) UTI (urinary tract infection) (Chronic) Medical History (Updated 02/15/21 @ 14:27 by Jamel Funez MD) Abdominal aortic aneurysm without rupture (04/21/17) Acute exacerbation of chronic obstructive airways disease (08/12/18) Acute retention of urine Anemia Atrial fibrillation Bacterial cystitis Cardiac pacemaker in situ (12/04/16) Chronic atrial fibrillation (06/24/19) Chronic kidney disease (CKD) stage G3b/A1, moderately decreased glomerular filtration rate (GFR) between 30-44 mL/min/1.73 square meter and albuminuria creatinine ratio less than 30 mg/g Chronic low back pain (05/05/18) Chronic renal failure, stage 2 (mild) Coffee ground emesis Congestive heart failure (11/26/17) and 07/05/2018 Constipation Constipation COPD (chronic obstructive pulmonary disease) Degeneration of lumbar intervertebral disc (12/11/17) Diabetes mellitus (2008) DNR (do not resuscitate) Per discussion with patient, 08/14/2020 Elevated INR (international normalized ratio) Erectile dysfunction (01/07/18) Essential hypertension (1999) GERD (gastroesophageal reflux disease) (05/05/18) resolved History of cardiac arrest (12/04/16) History of tobacco use (05/05/18) Hypercholesterolemia (12/04/16) Hypoxia Left carotid artery stenosis (2011) Low blood pressure, not hypotension Lower urinary tract symptoms Lumbar radiculopathy (12/11/17) Memory impairment (03/20/17) Obesity (05/05/18) Osteoarthritis (02/18/17) Paroxysmal atrial fibrillation (12/04/16) Pneumonia Pneumonia (03/15/19) RBC microcytosis Spinal stenosis of lumbar region (01/14/18) Urinary retention started tamsulosin 08/2019 UTI (urinary tract infection) UTI (urinary tract infection) Surgical History History of back surgery (11/23/12) History of cataract surgery History of cholecystectomy (11/23/99) History of endarterectomy (11/23/11) History of heart surgery (11/23/08) X 2, 11/23/02 ICD Placement, 11/23/08 Generator Change History of shoulder surgery (11/23/79) Bilateral History of spinal fusion (11/23/1959) Family History Family/Other Substance abuse Child Social History education level: high school occupational status: retired sexually active: No physical activity: none alcohol intake frequency: does not drink substance use type: does not use seatbelt use: always working smoke detector in home: Yes firearms in home: Yes MEDS/ALLERGIES Home Medications and Allergies Home Medications Medication Instructions Recorded Confirmed Type ipratropium 0.5 mg-albuterol 3 mg 3 ml INHALATION QIDP PRN 05/10/18 09/14/20 History (2.5 mg base)/3 mL nebulization soln warfarin 5 mg PO SUTUWETHSA 02/08/19 09/14/20 History tamsulosin 0.4 mg capsule 0.4 mg PO QDAY #30 cap 08/25/19 09/14/20 Rx hydrocodone 10 mg-acetaminophen 1 tab PO TID tab 12/16/19 09/14/20 History 325 mg tablet Stiolto Respimat 2 puff INHALATION Q24H 08/14/20 09/14/20 History albuterol sulfate 2 puff INHALATION Q4H PRN 08/14/20 09/14/20 History warfarin 2.5 mg PO MOFR 08/14/20 09/14/20 History atorvastatin 10 mg tablet 10 mg PO Q OTHER DAY tab 09/14/20 09/14/20 History digoxin 125 mcg (0.125 mg) tablet 62.5 mcg PO QDAY 09/14/20 09/14/20 History furosemide 40 mg tablet 40 mg PO QDAY 09/14/20 09/14/20 History potassium chloride 10 mEq 20 meq PO QDAY 09/14/20 09/14/20 History capsule,extended release sulfamethoxazole 800 1 tab PO QHS #7 tab 10/25/20 Rx mg-trimethoprim 160 mg tablet Allergies Allergy/AdvReac Type Severity Reaction Status Date / Time doxycycline Allergy Mild Rash Verified 10/25/20 11:29 morphine AdvReac Severe Other Verified 10/25/20 11:29 EXAM Constitutional Vitals: Temp Pulse Resp BP Pulse Ox 97.6 F 100 H 18 136/89 94 02/15/21 10:19 02/15/21 16:32 02/15/21 10:19 02/15/21 16:32 02/15/21 16:32 Additional findings Additional findings: Head: Atraumatic, normal inspection. Eyes: normal appearance, no scleral icterus. Neck: full ROM Respiratory: no respiratory distress. Cardiovascular: normal rate and rhythm, S1, S2. GI/Abdominal: soft, nontender, no guarding. Extremities: full range of motion, nontender. Neurological: Disordered thought content, CN II-XII intact, intact motor, intact sensation. Psychiatric: Appears anxious,. Skin: warm, normal color DATA Data Completed and Pending Labs: Labs from last 24 hours 02/15/21 02/15/21 02/15/21 12:30 11:27 11:27 WBC RBC Hgb Hct MCV MCH MCHC RDW Plt Count MPV Neut % (Auto) Lymph % (Auto) [place] % (Auto) Eos % (Auto) Baso % (Auto) Lymph # (Auto) [place] # (Auto) Eos # (Auto) Baso # (Auto) Absolute Neutrophils POC PT POC INR VBG Lactic Acid 1.7 Sodium Potassium Chloride Carbon Dioxide Anion Gap BUN Creatinine GFR Calculation Glucose Calcium Total Bilirubin AST ALT Alkaline Phosphatase Ammonia 11 L Troponin T NT-Pro-B Natriuret Pep Total Protein Albumin Globulin Albumin/Globulin Ratio Urine Color Yellow Urine Appearance Cloudy A Urine pH 6.0 Ur Specific [place] 1.008 Urine Protein Negative Urine Glucose (UA) Negative Urine Ketones Negative Urine Occult Blood 0.03 Urine Nitrate Pos A Urine Bilirubin Negative Urine Urobilinogen Negative Ur Leukocyte Esterase 500 A Urine RBC 16 H Urine WBC > 182 H Ur Squamous Epith Cells 1 Urine Bacteria Few A Hyaline Casts 11 H Urine Mucus Few A Ur Culture Indicated? yes 02/15/21 02/15/21 02/15/21 11:18 10:51 10:50 WBC 9.3 RBC 5.40 Hgb 12.1 L Hct 41.9 MCV 77.6 L MCH 22.4 L MCHC 28.9 L RDW 16.9 H Plt Count 205 MPV 10.7 H Neut % (Auto) 76.5 Lymph % (Auto) 16.3 [place] % (Auto) 3.9 Eos % (Auto) 2.7 Baso % (Auto) 0.6 Lymph # (Auto) 1.51 [place] # (Auto) 0.36 Eos # (Auto) 0.25 Baso # (Auto) 0.06 Absolute Neutrophils 7.10 POC PT 31.1 H POC INR 2.7 H VBG Lactic Acid Sodium Potassium Chloride Carbon Dioxide Anion Gap BUN Creatinine GFR Calculation Glucose Calcium Total Bilirubin AST ALT Alkaline Phosphatase Ammonia Troponin T < 0.01 NT-Pro-B Natriuret Pep Total Protein Albumin Globulin Albumin/Globulin Ratio Urine Color Urine Appearance Urine pH Ur Specific [place] Urine Protein Urine Glucose (UA) Urine Ketones Urine Occult Blood Urine Nitrate Urine Bilirubin Urine Urobilinogen Ur Leukocyte Esterase Urine RBC Urine WBC Ur Squamous Epith Cells Urine Bacteria Hyaline Casts Urine Mucus Ur Culture Indicated? 02/15/21 10:50 WBC RBC Hgb Hct MCV MCH MCHC RDW Plt Count MPV Neut % (Auto) Lymph % (Auto) [place] % (Auto) Eos % (Auto) Baso % (Auto) Lymph # (Auto) [place] # (Auto) Eos # (Auto) Baso # (Auto) Absolute Neutrophils POC PT POC INR VBG Lactic Acid Sodium 135 Potassium 5.1 Chloride 98 Carbon Dioxide 32 H Anion Gap 5.0 L BUN 17 Creatinine 1.6 H GFR Calculation 39 Glucose 154 H Calcium 8.9 Total Bilirubin 0.5 AST 17 ALT 12 Alkaline Phosphatase 112 Ammonia Troponin T NT-Pro-B Natriuret Pep 1912.0 H Total Protein 7.0 Albumin 3.5 Globulin 3.5 Albumin/Globulin Ratio 1.0 Urine Color Urine Appearance Urine pH Ur Specific [place] Urine Protein Urine Glucose (UA) Urine Ketones Urine Occult Blood Urine Nitrate Urine Bilirubin Urine Urobilinogen Ur Leukocyte Esterase Urine RBC Urine WBC Ur Squamous Epith Cells Urine Bacteria Hyaline Casts Urine Mucus Ur Culture Indicated? A/P Narrative A/P Narrative: Assessment: 85-year-old male with history of A. fib-on Coumadin, CKD IIIb, HFpEF, COPD with chronic hypoxia (2L per minute), possible cognitive impairment at baseline admitted for acute encephalopathy probably secondary to UTI. CT head w/o contrast was negative for acute changes. Clinically does not appear consistent with TIA/CVA. Ammonia #Encephalopathy probably secondary to UTI #Probable complicated urine tract infection #Urinary retention likely secondary to BPH #Atrial fibrillationAV paced on Coumadin #HFpEFstable #COPD with chronic hypoxia (2L per minute)-stable #Probable cognitive impairment at baseline #BPH Plan -Continue ceftriaxone IV, follow urine and blood cultures, de-escalate ABX when able. -Bladder scan every shift, straight cath as needed. -Check digoxin level. -Check VBG. -Avoid opioids and benzodiazepines. -Tamsulosin .8 mg daily -DuoNebs every 6 hr for now. -Coumadin per pharmacy. -PT consult -Medication reconciliation-resume appropriate home meds after pharmacy reviews. -Delirium mitigation strategies. -DVT PPx: On Coumadin. -CODE STATUS: DNR -Disposition: TBD Time Spent With Patient Time: Total time spent is greater than 50% in coordination of care (as documented) at patient's floor/unit and/or counseling patient:
[2021-02-15] MEDS ORDERED: cefTRIAXone 1 GM in DEXTROSE 5% IN WATER 50 ML IV SCH (17:39)
[2021-02-15] MEDS ORDERED: ONDANSETRON 4 MG/2 ML VIAL IV PRN (17:39)
[2021-02-15] MEDS ORDERED: ACETAMINOPHEN 325 MG TABLET PO PRN (17:39)
[2021-02-15 18:14] LABS: Digoxin < 0.3 ng/mL
[2021-02-15] MEDS ORDERED: IPRATROPIUM/ALBUTEROL 3 ML AMPUL.NEB NEB SCH (19:00)
[2021-02-15] MEDS: IPRATROPIUM/ALBUTEROL 3 ML AMPUL.NEB NEB SCH (19:30)
[2021-02-15] MEDS ORDERED: 0.9 % SODIUM CHLORIDE 500 ML IV ONE (19:37)
[2021-02-15] MEDS: 0.9 % SODIUM CHLORIDE 10 ML SYRINGE IV SCH (20:21)
[2021-02-15] MEDS: TAMSULOSIN 0.4 MG CAPSULE PO SCH (20:38)
[2021-02-15] MEDS: DOCUSATE SODIUM 100 MG CAPSULE PO SCH (20:38)
[2021-02-15] MEDS: SENNOSIDES 1 TABLET PO SCH (20:38)
[2021-02-16] MEDS: IPRATROPIUM/ALBUTEROL 3 ML AMPUL.NEB NEB SCH ×4 (00:29→19:06)
[2021-02-16] MEDS: 0.9 % SODIUM CHLORIDE 10 ML SYRINGE IV SCH ×2 (04:01→13:46)
[2021-02-16 06:09] LABS: ABG Methemoglobin 0.3 % (0.4-1.5); Total Hemoglobin 10.7 gm/Dl (13.5-16.5); VBG Base Excess 3 (-2-3); VBG HCO3 30.1 mmol/L (24.0-28.0); VBG Oxygen Saturation 60.2 % (40.0-70.0); VBG PH 7.34 U (7.32-7.42); VBG PO2 35.5 mmHg (25.0-40.0); VBG Total CO2 31.8 mmol/L (25.0-29.0)
[2021-02-16 06:15] LABS: Hematocrit 36.6 % (41.0-55.0); Hemoglobin 10.7 g/dL (13.5-16.5); Mean Cell Volume 76.7 fL (80.0-100.0); Mean Corpuscular HGB Conc 29.2 g/dL (31.0-36.0); Mean Platelet Volume 10.8 fL (7.4-10.4); Platelet Count 193 K/mcL (140-440); RBC 4.77 M/mcL (4.50-5.90); WBC 9.4 K/mcL (4.5-11.0)
[2021-02-16 06:34] LABS: Prothrombin Time 32.4 sec (11.9-14.5)
[2021-02-16 06:41] LABS: Blood Urea Nitrogen 21 mg/dL (8-23); Calcium 8.9 mg/dL (8.6-10.4); Carbon Dioxide 31 mmol/L (22-30); Chloride 102 mmol/L (96-108); Glomerular Filtration Rate 39; Glucose 87 mg/dL (70-105); Iron 26 ug/dL (61-157); TIBC Calculation 242 ug/dl (228-428); Transferrin % Saturation 11 % (20-50)
[2021-02-16 07:52] LABS: Anisocytosis 2+ (None Seen); Lymphocytes % 4 % (15-49); Microcytosis 1+ (None Seen); Monocytes % (Manual) 3 % (1-12); Ovalocytes 1+ (None Seen); Platelet Estimate NORMAL (Normal); RBC Morphology ABNORMAL (Normal); Segmented Neutrophils % 93 % (38-78)
[2021-02-16] MEDS: DOCUSATE SODIUM 100 MG CAPSULE PO SCH ×2 (08:20→20:25)
[2021-02-16] MEDS: FUROSEMIDE 40 MG TABLET PO SCH (08:21)
[2021-02-16] MEDS ORDERED: FUROSEMIDE 40 MG TABLET PO SCH (09:00)
[2021-02-16] MEDS ORDERED: cefTRIAXone 1 GM VIAL IV SCH ×2 (09:00→14:11)
--- NOTE | 2021-02-16 10:52 | Internal Med Progress Note ---
SUBJECTIVE Subjective Patient information: Note initiated : 02/16/21 at 10:41 am Service Date, if different from initiated Date: [] Patient: Zachery Ordoñez 85 y/o M admitted on 02/15/21 for altered loc. Chief Complaint: [] Interval history: Mr. Ordoñez is a 85 year old male with a history of atrial fibrillationon Coumadin, HFpEF, COPD with chronic hypoxia2 L/min, presented to the ED for encephalopathy. Apparently, the patient was found pounding in his neighbors door and yelling incoherent. The patient does not recall that happened, instead saying that he was pounding on his door. Patient says that he does not feel well today but cannot specify any further details. He says that he did feel okay yesterday. In the ED, the patient had UA suggestive of UTI. The patient was admitted to observation for encephalopathy possibly secondary to UTI. 02/16 Encephalopathy has probably resolved. The patient is requiring more oxygen than prior baseline but no evidence of respiratory distress, afebrile, no leukocytosis and does not appear volume overloaded. VBG show CO2 retention, likely chronic. Head: Atraumatic, normal inspection. Eyes: normal appearance, no scleral icterus. Neck: full ROM Respiratory: on nasal canula oxygen, left lower lung field rales, inspiratory and expiratory wheezes bilaterally, no respiratory distress. Cardiovascular: normal rate and rhythm, S1, S2, palpable pacemaker left upper chest. GI/Abdominal: soft, nontender, no guarding. Extremities: full range of motion, nontender. Neurological: CN II-XII intact, intact motor, intact sensation. Psychiatric: normal mood. Skin: warm, normal color Constitutional Vitals: Vital Signs Temp Pulse Resp BP Pulse Ox 99 F 93 H 20 120/63 96 02/16/21 07:21 02/16/21 07:21 02/16/21 07:21 02/16/21 07:21 02/16/21 07:21 Period Temp Pulse Resp BP Sys/[place] Pulse Ox Last 24 Hr 97.5 F-99 F 72-109 14-24 86-141/55-99 83-99 Intake and Output 02/15/21 02/16/21 02/16/21 21:59 05:59 13:59 Intake Total 250 980 180 Output Total 150 600 650 Balance 100 380 -470 Weight 90.356 kg Intake & Output: Intake & Output 02/15/21 02/16/21 02/16/21 21:59 05:59 13:59 Intake Total 250 980 180 Output Total 150 600 650 Balance 100 380 -470 Weight 90.356 kg Intake: IV 500 Sodium Chloride 0.9% 500 ml @ 500 Wide Open IV BOLUS ONE Rx#: [id number] Oral 250 480 180 Output: Void Amount 150 600 650 Other: Meal Dinner Breakfast Percent of Meal Consumed 100% 100% Feeding Ability Independent Urine Appearance Clear Cloudy Cloudy Urine Color Bright Yellow Bright Yellow Bright Yellow Urine Odor Strong Normal Normal # Voids 1 0 OBJ DATA Labs CBC & Chem 7: 02/16/21 04:56 02/16/21 04:57 Labs: Abnormal Lab Results 02/16/21 02/16/21 02/16/21 05:45 05:30 04:57 Hgb Hct MCV MCH MCHC RDW MPV Seg Neutrophils % Lymphocytes % RBC Morphology Anisocytosis Microcytosis Ovalocytes POC PT PT 32.4 H POC INR INR 3.0 H ABG Methemoglobin 0.3 L VBG pCO2 57.0 H VBG HCO3 30.1 H VBG Total CO2 31.8 H Carboxyhemoglobin 5.3 H Total Hemoglobin 10.7 L Potassium 5.3 H Carbon Dioxide 31 H Anion Gap 5.0 L Creatinine 1.6 H Glucose Iron 26 L Transferrin % Sat 11 L Ammonia NT-Pro-B Natriuret Pep Urine Appearance Urine Nitrate Ur Leukocyte Esterase Urine RBC Urine WBC Urine Bacteria Hyaline Casts Urine Mucus 02/16/21 02/15/21 02/15/21 04:56 12:30 11:27 Hgb 10.7 L Hct 36.6 L MCV 76.7 L MCH 22.4 L MCHC 29.2 L RDW 17.0 H MPV 10.8 H Seg Neutrophils % 93 H Lymphocytes % 4 L RBC Morphology Abnormal A Anisocytosis 2+ A Microcytosis 1+ A Ovalocytes 1+ A POC PT PT POC INR INR ABG Methemoglobin VBG pCO2 VBG HCO3 VBG Total CO2 Carboxyhemoglobin Total Hemoglobin Potassium Carbon Dioxide Anion Gap Creatinine Glucose Iron Transferrin % Sat Ammonia 11 L NT-Pro-B Natriuret Pep Urine Appearance Cloudy A Urine Nitrate Pos A Ur Leukocyte Esterase 500 A Urine RBC 16 H Urine WBC > 182 H Urine Bacteria Few A Hyaline Casts 11 H Urine Mucus Few A 02/15/21 02/15/21 02/15/21 11:18 10:51 10:50 Hgb 12.1 L Hct MCV 77.6 L MCH 22.4 L MCHC 28.9 L RDW 16.9 H MPV 10.7 H Seg Neutrophils % Lymphocytes % RBC Morphology Anisocytosis Microcytosis Ovalocytes POC PT 31.1 H PT POC INR 2.7 H INR ABG Methemoglobin VBG pCO2 VBG HCO3 VBG Total CO2 Carboxyhemoglobin Total Hemoglobin Potassium Carbon Dioxide 32 H Anion Gap 5.0 L Creatinine 1.6 H Glucose 154 H Iron Transferrin % Sat Ammonia NT-Pro-B Natriuret Pep 1912.0 H Urine Appearance Urine Nitrate Ur Leukocyte Esterase Urine RBC Urine WBC Urine Bacteria Hyaline Casts Urine Mucus Meds: Medications Acetaminophen (Acetaminophen 325 Mg Tablet) 650 mg PO Q6HP PRN; Protocol PRN Reason: Per Pain Protocol/Fever > 101 Albuterol/Ipratropium (Ipratropium/Albuterol 3 Ml Ampul.Neb) 3 ml NEB Q6HRT [facility] Last Admin: 02/16/21 07:13 Dose: 3 ml Documented by: Ceftriaxone Sodium (Ceftriaxone 1 Gm Vial) 1 gm IV Q24H [facility] Docusate Sodium (Docusate Sodium 100 Mg Capsule) 100 mg PO BID [facility] Last Admin: 02/16/21 08:20 Dose: 100 mg Documented by: Furosemide (Furosemide 40 Mg Tablet) 40 mg PO DAILY [facility] Last Admin: 02/16/21 08:21 Dose: 40 mg Documented by: Ondansetron HCl (Ondansetron 4 Mg/2 Ml Vial) 4 mg IV Q6HP PRN PRN Reason: Nausea And Vomiting Senna (Sennosides 1 Tablet) 2 tab PO [facility] Last Admin: 02/15/21 20:38 Dose: 2 tab Documented by: Sodium Chloride (0.9 % Sodium Chloride 10 Ml Syringe) 10 ml IV Q8 [facility] Last Admin: 02/16/21 04:01 Dose: 10 ml Documented by: Tamsulosin HCl (Tamsulosin 0.4 Mg Capsule) 0.8 mg PO [facility] Last Admin: 02/15/21 20:38 Dose: 0.8 mg Documented by: Warfarin Sodium (Warfarin Per Pharmacy) 1 order PO [facility] [place] Interpretation ABG results: 02/16/21 05:45 ABG Methemoglobin 0.3 L VBG pH 7.34 VBG pCO2 57.0 H VBG pO2 35.5 VBG HCO3 30.1 H VBG Total CO2 31.8 H VBG O2 Saturation 60.2 VBG Base Excess 3 A/P Narrative A/P Narrative: Assessment: 85-year-old male with history of A. fib-on Coumadin, CKD IIIb, HFpEF, COPD with chronic hypoxia (previously on 2L per minute), admitted for acute encephalopathy probably secondary to UTI. CT head w/o contrast was negative for acute changes. Clinically does not appear consistent with TIA/CVA. Ammonia was normal. Encephalopathy likely resolved by the second hospital day, probably at baseline cognitive status now however has increased oxygen requirements. #Increased oxygen requirements-acute on chronic vs chronic reflecting progression of COPD #Hypercapnia: probably chronic d/t COPD #Encephalopathy: resolving, probably secondary to UTI #Probable complicated urine tract infection #Urinary retention likely secondary to BPH: stable #Atrial fibrillationAV paced on Coumadin #HFpEFappears stable #COPD with chronic hypoxia (previously 2L per minute) #BPH Plan -Continue ceftriaxone IV, follow all cultures de-escalate ABX when able. -Bladder scan every shift, straight cath as needed. -Avoid opioids and benzodiazepines. -Tamsulosin .8 mg daily -DuoNebs every 6 hr for now. -Coumadin per pharmacy. -PT consult. -Medication reconciliation-resume appropriate home meds after pharmacy reviews. -Delirium mitigation strategies. -If d/c to home then home oxygen eval prior to discharge. -DVT PPx: On Coumadin. -CODE STATUS: DNR -Disposition: TBD Time Spent With Patient Time: Total time spent is greater than 50% in coordination of care (as documented) at patient's floor/unit and/or counseling patient: QUALITY VTE Deep Vein Thrombosis/Pulmonary Embolism Present on Admission: No
--- NOTE | 2021-02-16 11:46 | XRay Report ---
CLINICAL INFORMATION: Hypoxia COMPARISON: 02/15/2021 plain film FINDINGS: Implantable cardioverter defibrillator remains in stable satisfactory position without wire breakage or other complication. The heart is mildly enlarged, but unchanged. Mediastinum and pulmonary vessels are normal. Moderate COPD changes (noted on a 12/17/[address]) again seen. Mild airspace disease in the right lower lobe has increased and is suspicious for infiltrate superimposed upon fibrosis. No definite effusion. Moderate degenerative disease seen throughout the mid and lower thoracic spine IMPRESSION: Moderate patchy right lower lobe infiltrate superimposed on fibrosis COPD Mild cardiomegaly stable. No evidence of CHF Interpreted and Authenticated by: Shoaib Hobson 02/16/21
[2021-02-16] MEDS ORDERED: cefTRIAXone 1 GM VIAL IV ONE (14:12)
[2021-02-16] MEDS: AZITHROMYCIN 500 MG in DEXTROSE 5% IN WATER 250 ML IV SCH (15:07)
[2021-02-16] MEDS ORDERED: ALBUTEROL SULFATE 2.5 MG/3 ML NEBULIZER NEB PRN (19:45)
[2021-02-16] MEDS: SENNOSIDES 1 TABLET PO SCH (20:25)
[2021-02-16] MEDS: TAMSULOSIN 0.4 MG CAPSULE PO SCH (20:25)
[2021-02-17] MEDS: IPRATROPIUM/ALBUTEROL 3 ML AMPUL.NEB NEB SCH ×2 (01:03→06:52)
[2021-02-17] MEDS: 0.9 % SODIUM CHLORIDE 10 ML SYRINGE IV SCH ×2 (01:03→05:17)
[2021-02-17 06:11] LABS: Hematocrit 36.2 % (41.0-55.0); Hemoglobin 10.7 g/dL (13.5-16.5); Mean Cell Volume 76.5 fL (80.0-100.0); Mean Corpuscular HGB Conc 29.6 g/dL (31.0-36.0); Mean Platelet Volume 10.6 fL (7.4-10.4); Platelet Count 178 K/mcL (140-440); RBC 4.73 M/mcL (4.50-5.90); Red Cell Distribution Width 17.1 % (11.5-14.5); WBC 8.1 K/mcL (4.5-11.0)
[2021-02-17 06:25] LABS: Prothrombin Time 23.9 sec (11.9-14.5)
[2021-02-17 06:42] LABS: Blood Urea Nitrogen 20 mg/dL (8-23); Calcium 8.8 mg/dL (8.6-10.4); Carbon Dioxide 32 mmol/L (22-30); Chloride 102 mmol/L (96-108); Glomerular Filtration Rate 42; Glucose 94 mg/dL (70-105)
[2021-02-17] MEDS ORDERED: cefTRIAXone 2 GM in DEXTROSE 5% IN WATER 50 ML IV SCH (09:00)
[2021-02-17 09:26] LABS: Anisocytosis 2+ (None Seen); Eosinophils % (Manual) 3 % (0-7); Hypochromasia FEW (None Seen); Lymphocytes % 12 % (15-49); Microcytosis 1+ (None Seen); Monocytes % (Manual) 4 % (1-12); Ovalocytes 1+ (None Seen); Platelet Estimate NORMAL (Normal); RBC Morphology ABNORMAL (Normal); Reactive Lymphocytes 1 % (0-2); Segmented Neutrophils % 80 % (38-78)
--- NOTE | 2021-02-17 09:44 | Discharge Summary ---
Discharge Provider Provider Patient information: Note initiated : 02/17/21 at 9:34 am Service Date, if different from initiated Date: [] Patient: Zachery Ordoñez 85 y/o M admitted on 02/15/21 for altered loc. Chief Complaint: [] Date of admission: 02/15/21 17:20 Discharge date: 02/17/21 Primary care physician: Shey Abebe Consults: 02/15/21 15:31 Consult to Physician [CONS] Stat Comment: Consulting Provider: Luca Dye Reason For Exam: Physician to Consult Discharge Meds Discharge Medications Home Medications ipratropium 0.5 mg-albuterol 3 mg (2.5 mg base)/3 mL nebulization soln 3 ml INHALATION QIDP PRN 05/10/18 [History Confirmed 09/14/20 Last Taken 02/07/19 08:00] warfarin 5 mg PO SUTUWETHSA 02/08/19 [History Confirmed 09/14/20 Last Taken 08/12/20 07:00] Stiolto Respimat 2 puff INHALATION Q24H 08/14/20 [History Confirmed 09/14/20 Last Taken 08/14/20 07:00] albuterol sulfate 2 puff INHALATION Q4H PRN 08/14/20 [History Confirmed 09/14/20 Last Taken 08/14/20 07:00] warfarin 2.5 mg PO MOFR 08/14/20 [History Confirmed 09/14/20 Last Taken 08/13/20 07:00] atorvastatin 10 mg tablet 10 mg PO Q OTHER DAY tab 09/14/20 [History Confirmed 09/14/20 Last Taken Unknown] digoxin 125 mcg (0.125 mg) tablet 62.5 mcg PO QDAY 09/14/20 [History Confirmed 09/14/20 Last Taken Unknown] furosemide 40 mg tablet 40 mg PO QDAY 09/14/20 [History Confirmed 09/14/20 Last Taken Unknown] potassium chloride 10 mEq capsule,extended release 20 meq PO QDAY 09/14/20 [History Confirmed 09/14/20 Last Taken Unknown] amoxicillin-pot clavulanate [Augmentin] 1 tab PO BID 4 Days #8 tab 02/17/21 [Rx Last Taken Unknown] azithromycin 250 mg PO QDAY 3 Days #3 tab 02/17/21 [Rx Last Taken Unknown] tamsulosin 0.8 mg PO HS #60 cap 03/28/21 [Rx Last Taken Unknown] COURSE Hospital Course Hospital course: Mr. Ordoñez is a 85 year old male with a history of atrial fibrillationon Coumadin, HFpEF, COPD with chronic hypoxia2 L/min, presented to the ED for encephalopathy. Per report from the ED, the patient was found pounding in his neighbors door and yelling incoherent. The patient did not recall that happened, instead saying that he was pounding on his own door. Patient says that he did not feel well but could not specify any further details. He says that he did feel okay the day prior to admission. In the ED, the patient had UA suggestive of UTI but unfortunately no urine culture was obtained in the ED. Chest xray suggested a right lower lobe pneumonia. The patient was admitted for antibiotic therapy and observation for encephalopathy possibly secondary to UTI vs pneumonia. He transiently had increased oxygen requirement that improved back to near his baseline. A home oxygen evaluation was requested prior to discharge. PT was consulted. A VBG showed elevated CO2, likely chronic. CPAP was started but the patient did not tolerate that well. Encephalopathy resolved. PT recommended discharge home with home health. The patient was discharged to home, he will complete a course of antibiotic with Augmentin and Azithromycin for pneumonia. Unfortunately a urine culture was not obtained in a timely manner, the patient may or may not have had a UTI. Follow up; Follow up respiratory status, oxygen requirement. Pulmonology follow up for COPD management, may qualify for home. Discharge diagnosis: Encephalopathy likely from UTI vs pneumonia Secondary discharge diagnosis: UTI Pneumonia COPD-stable Reason for admission: Encephalopathy Time Spent with Patient Time attestation: Total time spent providing and/or coordinating discharge services: 30 minutes EXAM Constitutional Vitals: Temp Pulse Resp BP Pulse Ox 98.8 F 85 16 102/60 94 02/17/21 07:13 02/17/21 06:57 02/17/21 07:13 02/17/21 07:13 02/17/21 07:13 Additional findings Additional findings: Head: Atraumatic, normal inspection. Eyes: normal appearance, no scleral icterus. Neck: full ROM Respiratory: no respiratory distress. Cardiovascular: normal rate and rhythm, S1, S2. GI/Abdominal: soft, nontender, no guarding. Extremities: full range of motion, nontender. Neurological: CN II-XII intact, intact motor, intact sensation. Psychiatric: normal mood. Skin: warm, normal color Discharge Data Data Completed and Pending Labs on day of discharge: Labs from last 24 hours 02/17/21 02/17/21 02/17/21 04:59 04:58 04:58 WBC 8.1 RBC 4.73 Hgb 10.7 L Hct 36.2 L MCV 76.5 L MCH 22.6 L MCHC 29.6 L RDW 17.1 H Plt Count 178 MPV 10.6 H Seg Neutrophils % 80 H Lymphocytes % 12 L Monocytes % (Manual) 4 Eosinophils % (Manual) 3 Reactive Lymphocytes 1 Platelet Estimate Normal RBC Morphology Abnormal A Hypochromasia Few A Anisocytosis 2+ A Microcytosis 1+ A Ovalocytes 1+ A PT 23.9 H INR 2.0 H Sodium 140 Potassium 4.9 Chloride 102 Carbon Dioxide 32 H Anion Gap 6.0 L BUN 20 Creatinine 1.5 H GFR Calculation 42 Glucose 94 Calcium 8.8 Preliminary micro results at discharge 02/15/21 11:27 Blood Culture - Preliminary Blood 02/15/21 11:22 Blood Culture - Preliminary Blood Discharge Plan Patient/Caregiver Discharge Instructions Activity: as per physical therapy Diet: Low Sodium (2gm) Prescriptions: New amoxicillin-pot clavulanate [Augmentin] 875-125 mg tablet 1 tab PO BID 4 Days Qty: 8 RF: 0 azithromycin 250 mg tablet 250 mg PO QDAY 3 Days Qty: 3 RF: 0 tamsulosin 0.4 mg Capsule 0.8 mg PO HS Qty: 60 RF: 4 Continued furosemide 40 mg tablet 40 mg PO QDAY RF: 0 potassium chloride 10 mEq capsule, extended release 20 meq PO QDAY RF: 0 ipratropium-albuterol 0.5 mg-3 mg(2.5 mg base)/3 mL solution for nebulization 3 ml INHALATION QIDP PRN (Reason: Shortness Of Breath) RF: 0 atorvastatin 10 mg tablet 10 mg PO Q OTHER DAY RF: 0 digoxin 125 mcg (0.125 mg) tablet 62.5 mcg PO QDAY RF: 0 warfarin 5 MG tablet 5 mg PO SUTUWETHSA RF: 0 albuterol sulfate 90 mcg/actuation Hfa Aerosol Inhaler 2 puff INHALATION Q4H PRN (Reason: Shortness Of Breath) RF: 0 Stiolto Respimat 2.5-2.5 mcg/actuation Mist 2 puff INHALATION Q24H RF: 0 warfarin 2.5 mg Tablet 2.5 mg PO MOFR RF: 0 Discontinued tamsulosin 0.4 mg capsule 0.4 mg PO QDAY Qty: 30 RF: 3 sulfamethoxazole-trimethoprim [Bactrim DS] 800-160 mg tablet 1 tab PO QHS Qty: 7 RF: 0 hydrocodone-acetaminophen 10-325 mg tablet 1 tab PO TID RF: 0 Follow Up Plan Follow up with: Shey Abebe ARNP [Primary Care Provider] - Patient Disposition: Home Health Service Discharge Orders: Discharge Order (Routine); Ordered 02/17/21 Ordered By: Luca BATISTA VTE Deep Vein Thrombosis/Pulmonary Embolism Present on Admission: No
[2021-02-17] MEDS: AZITHROMYCIN 500 MG in DEXTROSE 5% IN WATER 250 ML IV SCH (10:04)
[2021-02-17] MEDS: DOCUSATE SODIUM 100 MG CAPSULE PO SCH (10:07)
[2021-02-17] MEDS: FUROSEMIDE 40 MG TABLET PO SCH (10:08)
[2021-02-17] MEDS ORDERED: cefTRIAXone 1 GM VIAL IV SCH (14:11)
== END 2021-02-17 11:10 | disposition home health service (06) ==
LOC: ED 10:16 → MEDSUR 10:16 → OBSVTOIN 17:20 → INTOOBSV 17:20 → MEDSUR 17:33
PROVIDERS: ADMIT Internal Medicine; ATTEND Internal Medicine